=== PATIENT | male | born 1955 | race Caucasian/White ===

== ENCOUNTER 2019-11-28 10:47 | Outpatient (CLI) | payer OTHER, SELFPAY ==
[2019-11-28 11:07] LABS: Hematocrit 43.9 % (42.0-52.0); Hemoglobin 14.9 g/dL (14.0-18.0); Mean Corpuscular HGB Conc 33.9 g/dl (32-36); Mean Corpuscular Hemoglobin 29.5 pg (26-34); Mean Corpuscular Volume 86.9 fl (80-100); Mean Platelet Volume 9.7 fl (7.4-10.4); Platelet Count Result 190 k/mm3 (150-375); Red Blood Count 5.05 M/mm3 (4.6-6.20); Red Cell Distribution Width 13.3 % (11.5-14.5); White Blood Count 6.4 K/mm3 (4.5-10.0)
[2019-11-28 11:22] LABS: Alanine Aminotransferase 38 U/L (4-50); Aspartate Amino Transferase 32 U/L (17-59); Blood Urea Nitrogen 16 mg/dL (9-20); Calcium 9.5 mg/dL (8.4-10.2); Carbon Dioxide 27 mmol/L (22-30); Chloride 105 mmol/L (98-107); Cholesterol 150 mg/dL (0-200); Estimated Glomerular Filt Rate > 60; Glucose 108 mg/dL (75-110); HDL Direct 37 mg/dL; Magnesium 2.3 mg/dL (1.6-2.3); Potassium 4.5 mmol/L (3.4-5.0); Sodium 139 mmol/L (137-145); Triglycerides 175 mg/dL (<150); Uric Acid 7.6 mg/dL (3.5-8.5)
[2019-11-28 11:30] LABS: Hemoglobin A1C 5.6 % (<5.7)
[2019-11-28 11:33] LABS: LDL Cholesterol Direct 98 mg/dL
[2019-11-28 11:49] LABS: Vitamin D 25 Hydroxy 43.3 ng/mL
[2019-11-28 14:15] LABS: Prostate Specific Antigen 0.6 ng/mL (< OR = 4.0)
[2019-11-28 15:10] LABS: Folic Acid 10.5 ng/mL (2.76->20)
[2019-12-02 12:56] LABS: Testosterone Free 46.5 pg/mL (35.0-155.0); Testosterone Total 294 ng/dL (250-1100)
== END 2019-11-28 10:48 | disposition home or self-care (01) ==
PROVIDERS: PCP Internal Medicine; Visit Provider Internal Medicine
DX: G47.33 Obstructive sleep apnea (adult) (pediatric) (principal); I10 Essential (primary) hypertension; G47.9 Sleep disorder, unspecified; K21.9 Gastro-esophageal reflux disease without esophagitis; M54.5 Low back pain; Z99.89 Dependence on other enabling machines and devices
CPT/HCPCS: 36415; 80048; 80061; 82306; 82607; 82746; 83036; 83735; 84153; 84402; 84403; 84450; 84460; 84550; 85027

== ENCOUNTER 2021-04-29 10:49 | Emergency (ER) | payer OTHER, SELFPAY ==
--- NOTE | ~2021-04-29 | XR_ITS ---
EXAMINATION: XR chest 2V DATE: 04/29/2021 11:51 INDICATION: Cough and shortness of breath TECHNIQUE: PA and lateral views of the chest are obtained. COMPARISON: 06/12/2019 FINDINGS: The lungs are free of acute opacities. There is no pleural effusion or pneumothorax. The he art size is normal. Median sternotomy wires and mediastinal surgical clips are seen, likely from prio r coronary artery bypass grafting. There is moderate thoracic spondylosis. Chronic anterior wedging i s noted in multiple thoracic vertebral bodies. IMPRESSION: 1. No acute cardiopulmonary abnormality. Reviewed, dictated and finalized at location A.
[2021-04-29 10:53] VITALS: BP 180/106; PULSE 84; RESP 28; TEMP 36.4; O2SAT 97
--- NOTE | 2021-04-29 10:57 | ECG_ITS ---
Measurements Intervals [place] Rate: 78 P: 71 WV: 129 QRS: 48 QRSD: 90 T: 70 QT: 373 QTc: 425 Interpretive Statements SINUS RHYTHM MINIMAL Q WAVES- INFERIOR LEADS BORDERLINE ST-T WAVE ABNORMALITY- HIGH LATERAL LEADS BASELINE ARTIFACT- I, II, III, AVR, AVL, AVF, V1-V6 BORDERLINE ECG Electronically Signed On 04-29-2021 11:54:12 CDT by Nikolai Echeverria D.O.
[2021-04-29 11:00] VITALS: O2SAT 95
[2021-04-29 11:15] LABS: Basophils Absolute Auto 0.1 K/mm3 (0.0-0.1); Basophils Percent Auto 1.3 % (0.2-1.2); Eosinophils Absolute Auto 0.1 K/mm3 (0-0.3); Hematocrit 46.6 % (42.0-52.0); Immature Granulocyte Absolute 0.02 K/mm3 (0.00-0.031); Immature Granulocyte Percent A 0.5 % (0-0.5); Lymphocytes Percent Auto 17.8 % (18.3-44.2); Mean Corpuscular HGB Conc 34.3 g/dl (32-36); Mean Corpuscular Volume 87.4 fl (80-100); Mean Platelet Volume 9.4 fl (7.4-10.4); Monocytes Absolute Auto 0.5 K/mm3 (0.1-0.6); Monocytes Percent Auto 11.7 % (2.6-8.5); Neutrophils Absolute Auto 2.6 K/mm3 (1.3-6.7); Neutrophils Percent Auto 65.7 % (45.5-73.1); Platelet Count Result 165 k/mm3 (150-375); Red Blood Count 5.33 M/mm3 (4.6-6.20); Red Cell Distribution Width 12.8 % (11.5-14.5); White Blood Count 3.9 K/mm3 (4.5-10.0)
[2021-04-29] MEDS: predniSONE 20 MG TABLET 60 MG PO (11:15)
--- NOTE | 2021-04-29 11:20 | ED.SOB ---
HPI - SOB/Dyspnea General Chief Complaint: Shortness of Breath/Dyspnea Stated Complaint: cough, feverish, sob 3 days Time Seen by Provider: 04/29/21 11:00 Source: patient and RN notes reviewed Mode of arrival: ambulatory Limitations: no limitations History of Present Illness HPI Narrative: This is a 65 year old male with history of CAD s/p CABG, hypertension who presents for evaluation of cough and shortness of breath. He reports he has been sick for 3 days. He has a productive cough with green sputum for 3 days. He has subjective fever. He came to the ER today because he is now having shortness of breath with minimal exertion. He has chest soreness only when he coughs. He has nausea but denies abdominal pain and diarrhea. He reports his grandson was diagnosed with RSV on Monday. Related Data Home Medications Medication Instructions Recorded Confirmed aspirin 81 mg tablet,delayed 81 mg PO DAILY 11/19/19 04/22/20 release atorvastatin 20 mg tablet 20 mg PO DAILY 11/19/19 04/22/20 lisinopril 10 mg tablet 10 mg PO DAILY 11/19/19 04/22/20 rivaroxaban [Xarelto] mg 04/29/21 sotalol 04/29/21 Allergies Allergy/AdvReac Type Severity Reaction Status Date / Time Penicillins Allergy Intermediate rash Verified 04/29/21 10:57 poison mehdi extract Allergy Rash Verified 04/29/21 10:57 pollen extracts Allergy rash Verified 04/29/21 10:57 Review of Systems Review of Systems: All systems reviewed & are unremarkable except as noted in HPI and below PMFSH Past Medical History Medical History CAD (coronary artery disease) FH: coronary artery bypass surgery Situational mixed anxiety and depressive disorder Surgical History Surgical History H/O colonoscopy History of appendectomy History of esophagogastroduodenoscopy (EGD) Family History Family History (Updated 07/27/17 @ 11:18 by DOCTOR UNKNOWN) Father Hypertension Mother Carcinoma of colon Sibling Family history of type 2 diabetes mellitus Social History Social History Smoking status: Former smoker Second hand tobacco smoke exposure: No Smoking end date: 09/25/05 Alcohol intake: current Exam Const: General: alert, diaphoretic and ill appearing Orientation/consciousness: patient oriented x3 Eyes: Pupils: Equal, round and reactive pupils present EOM: EOMs intact bilaterally Resp: Effort & Inspection: tachypneic and no use of accessory muscles Auscultation: wheezes expiratory wheezes and throughout Cardio: Rate: regular rate Rhythm: regular rhythm Heart sounds: no murmurs GI: GI Palp: Yes Soft to palpation, No Tenderness to palpation present (GI) and No Guarding due to palpation present (GI) Auscultation: normal bowel sounds Skin: General skin exam: normal color Rashes: no rashes Neuro: General: patient oriented x3 and moves all extremities Extrem: General: no pedal edema Psych: Mental Status: mental status grossly normal Affect: normal affect Course Reevaluation(s) Reevaluation #1: PAtient states he feels much better. His lungs are clear and his is 97% on room air. I have discussed labs and imaging. Date: 04/29/21 Time: 13:11 Reevaluation #2: I ambulated patient down that malave multiple times. He denies shortness of breath and states he feels good. His oxygen saturation did not go below 93% . He will be discharge for copd exacerbation. Unlikely PE given chronic anticoagulation and wheezing. Date: 04/29/21 Time: 14:07 Vital Signs Vital signs: Vital Signs Temperature 97.6 F 04/29/21 10:53 Pulse Rate 84 04/29/21 10:53 Respiratory Rate 28 H 04/29/21 10:53 Blood Pressure 180/106 H 04/29/21 10:53 Pulse Oximetry 97 04/29/21 10:53 Temperature 97.6 F 04/29/21 10:53 Pulse Rate 73 04/29/21 14:35 Respiratory Rate 18 04/29/21 14:35 Blood Pressure 120/86 04/29/21 14:
[2021-04-29 11:25] LABS: Alveolar/Arterial O2 Gradient 34.8 mmHg; Base Excess ABG 0.7 mEq/l (+/-2.0); Carboxyhemoglobin 0.9 % THb (0-2.0); Fractional Inspired Oxygen 21 %; HCO3 ABG 24.6 mEq/l (22.0-26.0); Methemoglobin ABG 0.2 %THb (0-1.5); Oxygen Content ABG 20.5 %vol (16.0-22.0); Oxygen Saturation ABG 94.6 % (95.0-100.0); Oxyhemoglobin 93.1 % THb (90.0-100.0); PCO2 ABG 37.5 mmHg (35.0-45.0); PO2 FiO2 Ratio Arterial Blood 3.33 %; Reduced Hemoglobin 5.8 %THb (0-5.0); Total Hemoglobin 15.7 g/dL (12.0-18.0); pH ABG 7.435 (7.350-7.450)
[2021-04-29 11:27] LABS: Device ROOM AIR; Modified Allen's Test Pass; Site Drawn RIGHT RADIAL
[2021-04-29 11:28] LABS: INR 1.1; Prothrombin Time 14.2 Seconds (11.1-14.7)
[2021-04-29 11:29] VITALS: PULSE 80; RESP 21
[2021-04-29 11:29] LABS: Alanine Aminotransferase 26 U/L (4-50); Albumin Level 5.1 g/dL (3.5-5.1); Alkaline Phosphatase 69 U/L (38-126); Anion Gap 13 mmol/L (8-16); Aspartate Amino Transferase 37 U/L (17-59); Bilirubin,Total 1.9 mg/dL (0.2-1.3); Blood Urea Nitrogen 16 mg/dL (9-20); Carbon Dioxide 24 mmol/L (22-30); Chloride 100 mmol/L (98-107); Estimated CRCL calculation 80 ml/min; Estimated Glomerular Filt Rate > 60; Glucose 145 mg/dL (65-110); Partial Thromboplastin Time 45.6 SECONDS (22.3-36.8); Potassium 4.3 mmol/L (3.4-5.0); Sodium 137 mmol/L (137-145)
[2021-04-29] MEDS: ALBUTEROL SULFATE NEB 2.5 MG/0.5 ML INH 5 MG INHALATION (11:29)
[2021-04-29] MEDS: IPRATROPIUM BR 0.02% INH SOLN 0.5 MG/2.5 ML VIAL INHALATION (11:29)
[2021-04-29 11:37] VITALS: PULSE 85; RESP 16
[2021-04-29 11:39] LABS: NT Pro B Type Natriuretic Pept 101 pg/mL (5-100)
[2021-04-29 11:41] LABS: Troponin I < 0.012 ng/mL (0.000-0.034)
[2021-04-29 12:13] VITALS: BP 133/81; PULSE 77; RESP 19; O2SAT 94
[2021-04-29 14:35] VITALS: BP 120/86; PULSE 73; RESP 18; O2SAT 95
[2021-05-01 02:01] LABS: SARS-CoV-2 RNA PCR Negative
== END 2021-04-29 14:49 | disposition home or self-care (01) ==
PROVIDERS: Emergency Medicine; Emergency Provider General Practice
DX: J20.9 Acute bronchitis, unspecified (principal); Z20.822 Contact with and (suspected) exposure to COVID-19; I25.10 Atherosclerotic heart disease of native coronary artery without angina pectoris; I10 Essential (primary) hypertension; Z79.82 Long term (current) use of aspirin; Z79.01 Long term (current) use of anticoagulants; Z87.891 Personal history of nicotine dependence; Z95.1 Presence of aortocoronary bypass graft; R94.31 Abnormal electrocardiogram [ECG] [EKG]
CPT/HCPCS: 36415; 36600; 71046; 80048; 80076; 82375; 82805; 83050; 83880; 84484; 85025; 85610; 85730; 87420; 87804; 93005; 94640; 99284; C9803; J7512; U0003; U0005

== ENCOUNTER 2021-07-06 07:33 | Outpatient (CLI) | payer OTHER, SELFPAY ==
[2021-07-06 08:10] LABS: Basophils Absolute Auto 0.1 K/mm3 (0.0-0.1); Basophils Percent Auto 1.1 % (0.2-1.2); Eosinophils Absolute Auto 0.1 K/mm3 (0-0.3); Eosinophils Percent Auto 2.6 % (0-4.4); Hematocrit 39.6 % (42.0-52.0); Hemoglobin 13.6 g/dL (14.0-18.0); Immature Granulocyte Absolute 0.01 K/mm3 (0.00-0.031); Immature Granulocyte Percent A 0.2 % (0-0.5); Lymphocytes Percent Auto 22.7 % (18.3-44.2); Mean Corpuscular HGB Conc 34.3 g/dl (32-36); Mean Corpuscular Hemoglobin 30.6 pg (26-34); Mean Corpuscular Volume 89.2 fl (80-100); Mean Platelet Volume 9.7 fl (7.4-10.4); Monocytes Absolute Auto 0.4 K/mm3 (0.1-0.6); Neutrophils Absolute Auto 3.5 K/mm3 (1.3-6.7); Neutrophils Percent Auto 66.4 % (45.5-73.1); Platelet Count Result 156 k/mm3 (150-375); Red Blood Count 4.44 M/mm3 (4.6-6.20); Red Cell Distribution Width 12.5 % (11.5-14.5); White Blood Count 5.3 K/mm3 (4.5-10.0)
[2021-07-06 08:41] LABS: Alanine Aminotransferase 19 U/L (4-50); Albumin Level 4.4 g/dL (3.5-5.1); Alkaline Phosphatase 49 U/L (38-126); Anion Gap 9 mmol/L (8-16); Aspartate Amino Transferase 22 U/L (17-59); Bilirubin,Total 0.9 mg/dL (0.2-1.3); Blood Urea Nitrogen 16 mg/dL (9-20); Calcium 9.4 mg/dL (8.4-10.2); Carbon Dioxide 23 mmol/L (22-30); Chloride 109 mmol/L (98-107); Cholesterol 143 mg/dL (0-200); Estimated Glomerular Filt Rate > 60; Glucose 114 mg/dL (65-110); HDL Direct 26 mg/dL; Potassium 4.2 mmol/L (3.4-5.0); Sodium 141 mmol/L (137-145); Triglycerides 316 mg/dL (<150)
[2021-07-06 08:52] LABS: LDL Cholesterol Direct 70 mg/dL
[2021-07-06 09:11] LABS: Prostate Specific Antigen 0.6 ng/mL (< OR = 4.0)
[2021-07-06 10:42] LABS: Hemoglobin A1C 5.1 % (<5.7)
== END 2021-07-06 07:34 | disposition home or self-care (01) ==
LOC: ANHLAB 07:35
PROVIDERS: PCP Family Medicine; Visit Provider Family Medicine
DX: D72.819 Decreased white blood cell count, unspecified (principal); I25.10 Atherosclerotic heart disease of native coronary artery without angina pectoris; I10 Essential (primary) hypertension; Z12.5 Encounter for screening for malignant neoplasm of prostate; R73.9 Hyperglycemia, unspecified
CPT/HCPCS: 36415; 80053; 80061; 83036; 84153; 84443; 85025; G0103

== ENCOUNTER 2021-07-08 07:57 | Outpatient (CLI) | payer OTHER, SELFPAY ==
--- NOTE | ~2021-07-08 | CT_ITS ---
EXAMINATION:CT lung screening DATE: 07/08/2021 09:33 INDICATION: Personal history of tobacco dependence. Smoker who quit 15 years ago with 20 pack year hi story. TECHNIQUE: Computed tomography (CT) of the chest was performed without intravenous contrast. Automate d exposure control and iterative reconstruction technique were employed. The dose-length product (DLP ) was 173.20 mGy-cm. COMPARISON: Abdomen CT 10/17/2006 FINDINGS: There is mild scarring at the lung apices. There is moderate emphysema. There is a 3 mm nod ule in left lower lobe. There are a few 1-2 mm nodules in the lungs bilaterally. No pleural effusion. The heart size is normal. There are changes of coronary artery bypass grafting. There are coronary a rtery calcifications. No pericardial effusion. There is mild chronic anterior wedging of multiple mid thoracic vertebral bodies. There is moderate thoracic spondylosis. IMPRESSION: 1. Lung-RADS category 2: Benign appearance or behavior. Continue annual screening with noncontrast lo w-dose chest CT in 12 months. Reviewed, dictated and finalized at location A. IMPRESSION: 1. Lung-RADS category 2: Benign appearance or behavior. Continue annual screeni ng with noncontrast low-dose chest CT in 12 months.
--- NOTE | 2021-07-08 12:43 | P.PCNPFT_ITS ---
PFT Procedure Performed PFT Procedure Performed Spirometry with Pre/Post Bronchodilator Plethysmography (Lung Vol) Diffusing Cap (DLCO) Flow Vol Loop PFT Interpretation Lung volumes were measured with the body plethysmography method. The elevated FRC and RV are indicative of air trapping. Spirometry showed diminished exp iratory flow rates and a diminished FEV1 to FVC ratio 45%, consistent with obstructive airway disease. Following administration of an inhaled bronchodilator, the FEV1 was significantly increased. Lung diffusion capacity is mildly reduced at 74% predicted. The flow volume loop is consistent with obstructive airway disease. Impression: Moderate obstructive airway disease with evidence of air trapping and significant response to bronchodilators on this testing. Mild reduction in lung diffusion capacity.
== END 2021-07-08 07:58 | disposition home or self-care (01) ==
PROVIDERS: PCP Family Medicine; Visit Provider Internal Medicine Critical Care Medicine
DX: Z12.2 Encounter for screening for malignant neoplasm of respiratory organs (principal); R06.02 Shortness of breath; Z87.891 Personal history of nicotine dependence
CPT/HCPCS: 71271; 94060; 94726; 94729

== ENCOUNTER 2021-08-14 14:00 | Emergency (ER) | payer OTHER, SELFPAY ==
[2021-08-14] VITALS (16 sets, daily range): BP systolic 103–148; BP diastolic 67–79; PULSE 74–88; RESP 11–24; TEMP 36.7; O2SAT 93–100
--- NOTE | ~2021-08-14 | XR_ITS ---
EXAMINATION: XR chest 2V EXAM DATE: 08/14/2021 14:53 INDICATION: Shortness of breath.cough, history coronary artery disease. TECHNIQUE: Frontal and lateral projections of the chest obtained and reviewed. Comparison is made to prior examination from 04/29/2021. FINDINGS: Mild chronic appearing hyperinflation. Sternotomy wires are present without findings to sug gest sternal dehiscence. The lungs are clear. There are no pleural effusions. The cardiomediastinal silhouette is within normal limits. There is no pneumothorax suspected. The bones and soft tissues are unremarkable. IMPRESSION: Mild chronic hyperinflation. No acute cardiopulmonary findings. Reviewed, dictated and finalized at location A. FAT PULLER
--- NOTE | 2021-08-14 14:19 | ECG_ITS ---
Measurements Intervals [place] Rate: 78 P: 74 NE: 141 QRS: 64 QRSD: 86 T: 63 QT: 383 QTc: 437 Interpretive Statements SINUS RHYTHM MINIMAL Q WAVES- INF/LAT LEADS BORDERLINE ECG Electronically Signed On 08-14-2021 19:54:04 OIL PIT ATTENDANT by Nikolai Echeverria D.O.
[2021-08-14 15:18] LABS: Basophils Absolute Auto 0.1 K/mm3 (0.0-0.1); Basophils Percent Auto 0.5 % (0.2-1.2); Eosinophils Absolute Auto 0.1 K/mm3 (0-0.3); Eosinophils Percent Auto 1.4 % (0-4.4); Hematocrit 41.4 % (42.0-52.0); Hemoglobin 14.5 g/dL (14.0-18.0); Immature Granulocyte Absolute 0.04 K/mm3 (0.00-0.031); Immature Granulocyte Percent A 0.4 % (0-0.5); Lymphocytes Absolute Auto 0.61 K/mm3 (0.9-3.2); Lymphocytes Percent Auto 6.1 % (18.3-44.2); Mean Corpuscular Hemoglobin 30.1 pg (26-34); Mean Corpuscular Volume 86.1 fl (80-100); Mean Platelet Volume 10.1 fl (7.4-10.4); Monocytes Absolute Auto 0.5 K/mm3 (0.1-0.6); Monocytes Percent Auto 4.9 % (2.6-8.5); Neutrophils Absolute Auto 8.8 K/mm3 (1.3-6.7); Neutrophils Percent Auto 86.7 % (45.5-73.1); Platelet Count Result 174 k/mm3 (150-375); Red Blood Count 4.81 M/mm3 (4.6-6.20); Red Cell Distribution Width 12.4 % (11.5-14.5); White Blood Count 10.1 K/mm3 (4.5-10.0)
[2021-08-14 15:29] LABS: Alanine Aminotransferase 19 U/L (4-50); Albumin Level 4.6 g/dL (3.5-5.1); Alkaline Phosphatase 65 U/L (38-126); Anion Gap 8 mmol/L (8-16); Aspartate Amino Transferase 23 U/L (17-59); Bilirubin,Total 1.7 mg/dL (0.2-1.3); Blood Urea Nitrogen 12 mg/dL (9-20); Calcium 9.8 mg/dL (8.4-10.2); Carbon Dioxide 25 mmol/L (22-30); Chloride 105 mmol/L (98-107); Estimated CRCL calculation 95 ml/min; Estimated Glomerular Filt Rate > 60; Glucose 114 mg/dL (65-110); Sodium 138 mmol/L (137-145)
[2021-08-14] MEDS: IPRATROPIUM BR 0.02% INH SOLN 0.5 MG/2.5 ML VIAL INHALATION ×3 (18:28→20:15)
[2021-08-14] MEDS: ALBUTEROL SULFATE NEB 2.5 MG/0.5 ML INH 5 MG INHALATION ×3 (18:28→20:15)
[2021-08-14] MEDS: methylPREDNISolone SOD SUCC 125 MG VIAL IV PUSH (18:29)
[2021-08-14 18:42] LABS: Lipase 91 U/L (23-300)
--- NOTE | 2021-08-14 18:50 | ED.SOB ---
HPI - SOB/Dyspnea General Chief Complaint: Shortness of Breath/Dyspnea <Danni Beach PA-C - Last Filed: 08/14/21 20:43> Stated Complaint: cough, dyspnea <ALTON Saha Last Filed: 08/14/21 20:43> Time Seen by Provider: 08/14/21 18:06 <ALTON Saha Last Filed: 08/14/21 20:43> Source: patient <ALTON Saha Last Filed: 08/14/21 20:43> Mode of arrival: ambulatory <ALTON Saha Last Filed: 08/14/21 20:43> Limitations: no limitations <ALTON Saha Last Filed: 08/14/21 20:43> History of Present Illness HPI Narrative: This is a 65 year old male that presents to the ER for dyspnea present today. Reports tightness and wheezing. History of COPD. He has been using his nebulizer treatments with some relief. Also reports a mild productive cough today. Denies fever or chest pain. <ALTON Saha Last Filed: 08/14/21 20:43> Related Data Home Medications: Home Medications Medication Instructions Recorded Confirmed aspirin 81 mg tablet,delayed 81 mg PO DAILY 11/19/19 08/31/21 release atorvastatin 20 mg tablet 20 mg PO DAILY 11/19/19 08/31/21 lisinopril 10 mg tablet 10 mg PO DAILY 11/19/19 08/31/21 Xarelto 20 mg PO DAILY 04/29/21 08/31/21 sotalol 80 mg tablet 80 mg PO BID tablet 05/13/21 08/31/21 albuterol sulfate 2.5 mg INHALATION Q4H PRN 08/10/21 08/31/21 <ALTON Saha Last Filed: 08/14/21 20:43> Allergies/Adverse Reactions: Allergies Allergy/AdvReac Type Severity Reaction Status Date / Time poison mehdi extract Allergy Intermediate Rash Verified 08/31/21 15:19 pollen extracts Allergy Intermediate rash Verified 08/31/21 15:19 Penicillins AdvReac Intermediate Diarrhea Verified 08/31/21 15:19 <Danni Beach PA-C - Last Filed: 08/14/21 20:43> Review of Systems Review of Systems: CONSTITUTIONAL: Denies fever ENT: Denies rhinorrhea, congestion, sore throat CARDIOVASCULAR: Denies chest pain or edema. RESPIRATORY: Reports cough and dyspnea. <Danni Beach PA-C - Last Filed: 08/14/21 20:43> All systems reviewed & are unremarkable except as noted in HPI and below <Danni Beach PA-C - Last Filed: 08/14/21 20:43> [facility] Past Medical History Medical History: Medical History (Updated 08/31/21 @ 15:31 by Elena Campbell PA-C) CAD (coronary artery disease) COPD (chronic obstructive pulmonary disease) History of tobacco abuse Hypertension ALONSO on CPAP Paroxysmal atrial fibrillation Situational mixed anxiety and depressive disorder <Danni Beach PA-C - Last Filed: 08/14/21 20:43> Surgical History Surgical History: Surgical History (Updated 08/31/21 @ 15:31 by Elena Campbell PA-C) Coronary atherosclerosis of bypass graft Double 2011 H/O colonoscopy With polypectomy on 08/23/2021 H/O right coronary artery stent placement History of appendectomy History of esophagogastroduodenoscopy (EGD) <Danni Beach PA-C - Last Filed: 08/14/21 20:43> Family History Family History: Family History Father Hypertension Heart disease Cerebrovascular accident Mother Carcinoma of colon Sibling Family history of type 2 diabetes mellitus Hypertension <Danni Beach PA-C - Last Filed: 08/14/21 20:43> Social History Social History: Social History (Updated 08/31/21 @ 15:33 by Elena Campbell PA-C) Social History: Mr. Ca lives at home with his . 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 He is independent in his daily activities. He designates his , Brianna, as his surrogate decision maker and he would like to be a full code. Smoking packs per day: 1 Smoking cigarettes per day: 20.0 Years smoked: 30 Smoking pack-years: 30.00 Smoking status: Former smoker Tobacco type: cigarettes Second hand tobacco smoke exposure: No Smoking end date: 09/25/05 Alcohol intake: current Drinks per
--- NOTE | 2021-08-14 19:19 | PC.NURSE ---
RT entering room for additional neb tx.
[2021-08-14] MEDS: ACETAMINOPHEN 500 MG TABLET 1000 MG PO (19:54)
== END 2021-08-14 21:35 | disposition home or self-care (01) ==
PROVIDERS: Physician Assistant; Emergency Provider Emergency Medicine; PCP Family Medicine
DX: J44.1 Chronic obstructive pulmonary disease with (acute) exacerbation (principal); I25.10 Atherosclerotic heart disease of native coronary artery without angina pectoris; G47.33 Obstructive sleep apnea (adult) (pediatric); I48.0 Paroxysmal atrial fibrillation; Z79.01 Long term (current) use of anticoagulants; Z95.5 Presence of coronary angioplasty implant and graft; Z95.1 Presence of aortocoronary bypass graft; Z87.891 Personal history of nicotine dependence; R94.31 Abnormal electrocardiogram [ECG] [EKG]
CPT/HCPCS: 36415; 71046; 80053; 83690; 85025; 93005; 94640; 96374; 99285; A9270; J2930

== ENCOUNTER 2021-08-23 01:35 | Day surgery (SDC) | payer OTHER, SELFPAY ==
[2021-08-10 11:40] VITALS: BMI 30.9
[2021-08-23 08:18] VITALS: BP 105/62; PULSE 64; RESP 18; TEMP 35.6; O2SAT 99; BMI 29.9
[2021-08-23] MEDS: LACTATED RINGERS 1,000 ML 150 ML IV CONT (08:46)
--- NOTE | 2021-08-23 08:58 | WPDGICN ---
Assessment and Plan Assessment and plan (1) Family history of colon cancer: Code(s): Z80.0 - Family history of malignant neoplasm of digestive organs Status: Acute Assessment and Plan: Patient has a family history of colon cancer in his mother. For this reason surveillance colonoscopy has been advised 5 year intervals. High-fiber diet suggested further recommendations will be given after endoscopy. GI Consult Note Consult date/time: 08/23/21 08:58 HPI: Sajan Ca is a 65 year old male Presents for screening colonoscopy. Patient's current weight appetite bowel movements are normal. He denies abdominal pain. He has had no bleeding. Family history is significant that his mother had colon cancer. Patient presents today for screening colonoscopy. Past medical history is significant for atherosclerotic heart disease. He has a history of a double bypass and heart stents. Currently felt to be stable. Review of Systems Review of Systems: All systems reviewed & are unremarkable except as noted in HPI and below PMFSH Past Medical History Medical History Allergies CAD (coronary artery disease) CAD (coronary artery disease) FH: coronary artery bypass surgery ALONSO on CPAP Paroxysmal atrial fibrillation Situational mixed anxiety and depressive disorder Surgical History Surgical History Coronary atherosclerosis of bypass graft Double 2012 H/O colonoscopy H/O right coronary artery stent placement History of appendectomy History of esophagogastroduodenoscopy (EGD) Family History Family History Father Hypertension Heart disease Cerebrovascular accident Mother Carcinoma of colon Sibling Family history of type 2 diabetes mellitus Hypertension Social History Social History Smoking packs per day: 1 Smoking cigarettes per day: 20.0 Years smoked: 30 Smoking pack-years: 30.00 Smoking status: Former smoker Tobacco type: cigarettes Second hand tobacco smoke exposure: No Smoking end date: 09/25/05 Alcohol intake: current Drinks per week: 6 Alcohol use details: BEERS Substance use: never Substance use type: does not use Living arrangements: with family 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ient): Male Sexual Orientation (if Verbalized by the Patient): Straight or Heterosexual Spiritual care concerns: No Agree to blood products: Yes Meds Home Medications and Allergies Home Medications Medication Instructions Recorded Confirmed Type aspirin 81 mg tablet,delayed 81 mg PO DAILY 11/19/19 08/23/21 History release atorvastatin 20 mg tablet 20 mg PO DAILY 11/19/19 08/23/21 History lisinopril 10 mg tablet 10 mg PO DAILY 11/19/19 08/23/21 History albuterol sulfate 2 puff INHALATION QID PRN #6.7 g 04/29/21 08/23/21 Rx rivaroxaban [Xarelto] 20 mg PO DAILY 04/29/21 08/23/21 History sotalol 80 mg tablet 80 mg PO BID tablet 05/13/21 08/23/21 History albuterol sulfate 2.5 mg INHALATION Q4H PRN 08/10/21 08/23/21 History cefdinir 300 mg PO Q12H 5 Days #10 cap 08/14/21 08/23/21 Rx prednisone 40 mg PO DAILY 4 Days #8 tablet 08/14/21 08/23/21 Rx Allergies Allergy/AdvReac Type Severity Reaction Status Date / Time poison mehdi extract Allergy Intermediate Rash Verified 08/23/21 08:31 pollen extracts Allergy Intermediate rash Verified 08/23/21 08:31 Penicillins AdvReac Intermediate Diarrhea Verified 08/23/21 08:31 Vital Signs Vital Signs - 24 hr 08/23/21 08:18 Temperature 96.1 F L Pulse Rate 64 Respiratory Rate 18 Blood Pressure 105/62 Pulse Oximetry 99 Exam Narrative: Physical exam reveals patient to be alert. Vital signs stable. HEENT exam is un
--- NOTE | 2021-08-23 09:20 | WPDANESEPPF ---
Anes - Initial Pre Proc Eval Procedure: Operation Date: 08/23/21 09:30 Proposed Procedures p Screening Colonoscopy - Johnson Marquez MD Date/Time: 08/23/21 09:20 Surgeon: Johnson Marquez MD Pre Op Diagnosis: family hx of colon ca Patient Data Age: 65 Gender: M Height: 1.78 m Weight: 94.9 kg Last Vital Signs Temp 96.1 F L 08/23/21 08:18 Pulse 64 08/23/21 08:18 Resp 18 08/23/21 08:18 BP 105/62 08/23/21 08:18 Pulse Ox 99 08/23/21 08:18 Allergies Allergy/AdvReac Type Severity Reaction Status Date / Time poison mehdi extract Allergy Intermediate Rash Verified 08/23/21 08:31 pollen extracts Allergy Intermediate rash Verified 08/23/21 08:31 Penicillins AdvReac Intermediate Diarrhea Verified 08/23/21 08:31 Home Medications Medication Instructions Recorded Confirmed Type aspirin 81 mg tablet,delayed 81 mg PO DAILY 11/19/19 08/23/21 History release atorvastatin 20 mg tablet 20 mg PO DAILY 11/19/19 08/23/21 History lisinopril 10 mg tablet 10 mg PO DAILY 11/19/19 08/23/21 History albuterol sulfate 2 puff INHALATION QID PRN #6.7 g 04/29/21 08/23/21 Rx rivaroxaban [Xarelto] 20 mg PO DAILY 04/29/21 08/23/21 History sotalol 80 mg tablet 80 mg PO BID tablet 05/13/21 08/23/21 History albuterol sulfate 2.5 mg INHALATION Q4H PRN 08/10/21 08/23/21 History cefdinir 300 mg PO Q12H 5 Days #10 cap 08/14/21 08/23/21 Rx prednisone 40 mg PO DAILY 4 Days #8 tablet 08/14/21 08/23/21 Rx Patient hx anesthesia problems: none Family hx anesthesia problems: none Results Review: All pre-operative results and documents have been reviewed as part of the pre-operative evaluation. [facility] Past Medical History Medical History Allergies CAD (coronary artery disease) CAD (coronary artery disease) FH: coronary artery bypass surgery ALONSO on CPAP Paroxysmal atrial fibrillation Situational mixed anxiety and depressive disorder Surgical History Surgical History Coronary atherosclerosis of bypass graft Double 2012 H/O colonoscopy H/O right coronary artery stent placement History of appendectomy History of esophagogastroduodenoscopy (EGD) Family History Family History Father Hypertension Heart disease Cerebrovascular accident Mother Carcinoma of colon Sibling Family history of type 2 diabetes mellitus Hypertension Social History Social History Smoking packs per day: 1 Smoking cigarettes per day: 20.0 Years smoked: 30 Smoking pack-years: 30.00 Smoking status: Former smoker Tobacco type: cigarettes Second hand tobacco smoke exposure: No Smoking end date: 09/25/05 Alcohol intake: current Drinks per week: 6 Alcohol use details: BEERS Substance use: never Substance use type: does not use Living arrangements: with family 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ient): Male Sexual Orientation (if Verbalized by the Patient): Straight or Heterosexual Spiritual care concerns: No Agree to blood products: Yes Anes - Eval Final PreProcedure Day of Procedure 08/23/21 09:20 Patient weight: obese Heart: regular rate and rhythm Lungs: clear to auscultation Airway: Mallampati scale class II Neurological: alert and oriented Last oral intake: >/= 8 hours ASA classification: III Emergent: no Anesthetic plan: proceed Anesthesia type and monitoring: general GIVS and standard monitoring Results Review: All pre-operative results and documents have been reviewed as part of the pre-operative evaluation. Informed Consent: The patient's anesthetic plan and its attendant risks and benefits were discussed with the patient/family/POA. Questions were solicited and answers provided to the satisfacti
[2021-08-23 10:19] VITALS: BP 88/50; PULSE 63; RESP 23; O2SAT 93
[2021-08-23 10:29] VITALS: BP 97/71; PULSE 72; RESP 19; O2SAT 96
--- NOTE | 2021-08-23 10:34 | SUR.PHASEII ---
Per Dr. Marquez, restart xarelto in 3 days.
[2021-08-23 10:39] VITALS: BP 113/76; PULSE 62; RESP 20; O2SAT 95
== END 2021-08-23 10:53 | disposition home or self-care (01) ==
PROVIDERS: PCP Family Medicine; Visit Provider Internal Medicine Gastroenterology
PROC: 0DJD8ZZ Inspection of Lower Intestinal Tract, Via Natural or Artificial Opening Endoscopic (ICD-10-PCS; CPT 45378; principal; 2021-08-23 09:30)
DX: Z12.11 Encounter for screening for malignant neoplasm of colon (principal); D12.2 Benign neoplasm of ascending colon; K62.1 Rectal polyp; K57.30 Diverticulosis of large intestine without perforation or abscess without bleeding; Z80.0 Family history of malignant neoplasm of digestive organs; I25.10 Atherosclerotic heart disease of native coronary artery without angina pectoris; G47.33 Obstructive sleep apnea (adult) (pediatric); I48.0 Paroxysmal atrial fibrillation; Z95.1 Presence of aortocoronary bypass graft; Z95.5 Presence of coronary angioplasty implant and graft; Z87.891 Personal history of nicotine dependence; Z79.01 Long term (current) use of anticoagulants; Z79.82 Long term (current) use of aspirin; Z79.51 Long term (current) use of inhaled steroids; E66.9 Obesity, unspecified; Z68.30 Body mass index [BMI] 30.0-30.9, adult
CPT/HCPCS: 45385; 88305; J2704; J7120

== ENCOUNTER 2021-08-24 11:48 | Outpatient (CLI) | payer OTHER, SELFPAY ==
[2021-08-26 21:13] LABS: Alpha-1-Antitrypsin, QN 193 mg/dL (83-199)
== END 2021-08-24 11:49 | disposition home or self-care (01) ==
LOC: ANHLAB 11:51
PROVIDERS: PCP Family Medicine; Visit Provider Internal Medicine Critical Care Medicine
DX: J44.9 Chronic obstructive pulmonary disease, unspecified (principal)
CPT/HCPCS: 36415; 82103; 82104

== ENCOUNTER 2021-08-31 08:10 | Observation (INO) | payer OTHER, SELFPAY ==
[2021-08-31] VITALS (27 sets, daily range): BP systolic 91–136; BP diastolic 50–87; PULSE 62–104; RESP 14–20; TEMP 36–36.7; O2SAT 94–100
[2021-08-31 08:58] LABS: Basophils Absolute Auto 0.1 K/mm3 (0.0-0.1); Basophils Percent Auto 0.7 % (0.2-1.2); Eosinophils Absolute Auto 0.3 K/mm3 (0-0.3); Hematocrit 38.2 % (42.0-52.0); Hemoglobin 12.8 g/dL (14.0-18.0); Immature Granulocyte Absolute 0.05 K/mm3 (0.00-0.031); Immature Granulocyte Percent A 0.4 % (0-0.5); Lymphocytes Absolute Auto 1.52 K/mm3 (0.9-3.2); Lymphocytes Percent Auto 12.4 % (18.3-44.2); Mean Corpuscular HGB Conc 33.5 g/dl (32-36); Mean Corpuscular Hemoglobin 29.7 pg (26-34); Mean Corpuscular Volume 88.6 fl (80-100); Mean Platelet Volume 10.1 fl (7.4-10.4); Monocytes Absolute Auto 0.8 K/mm3 (0.1-0.6); Monocytes Percent Auto 6.8 % (2.6-8.5); Neutrophils Absolute Auto 9.5 K/mm3 (1.3-6.7); Neutrophils Percent Auto 77.7 % (45.5-73.1); Platelet Count Result 251 k/mm3 (150-375); Red Blood Count 4.31 M/mm3 (4.6-6.20); Red Cell Distribution Width 12.7 % (11.5-14.5); White Blood Count 12.3 K/mm3 (4.5-10.0)
[2021-08-31 09:02] LABS: Prothrombin Time 22.4 Seconds (11.1-14.7)
[2021-08-31 09:03] LABS: Partial Thromboplastin Time 46.2 SECONDS (22.3-36.8)
[2021-08-31 09:11] LABS: Alanine Aminotransferase 19 U/L (4-50); Albumin Level 4.4 g/dL (3.5-5.1); Alkaline Phosphatase 49 U/L (38-126); Anion Gap 9 mmol/L (8-16); Aspartate Amino Transferase 23 U/L (17-59); Bilirubin,Total 0.9 mg/dL (0.2-1.3); Blood Urea Nitrogen 16 mg/dL (9-20); Calcium 9.4 mg/dL (8.4-10.2); Carbon Dioxide 23 mmol/L (22-30); Chloride 103 mmol/L (98-107); Estimated CRCL calculation 77 ml/min; Estimated Glomerular Filt Rate > 60; Glucose 116 mg/dL (65-110); Potassium 4.5 mmol/L (3.4-5.0); Sodium 135 mmol/L (137-145)
[2021-08-31] MEDS: LACTATED RINGERS 1,000 ML 999 ML IV CONT (09:32)
--- NOTE | 2021-08-31 10:09 | ED.GIBLEED ---
HPI - GI Bleed General Chief complaint: GI Bleed Stated complaint: bloody diahrrea Time Seen by Provider: 08/31/21 09:08 Source: patient Mode of arrival: ambulatory Limitations: no limitations History of Present Illness HPI Narrative: 65-year-old male Here for 2 episodes of bloody stools this morning Reports the first 1 was blood mixed with stool and the second 1 was just a amount of blood which to him seemed large He does not have abdominal pain, and no tenesmus No dizziness or lightheadedness He had a colonoscopy with polypectomies and biopsies about 8 days ago He subsequently has resumed taking Xarelto for his atrial fibrillation Related Data Home Medications Medication Instructions Recorded Confirmed aspirin 81 mg tablet,delayed 81 mg PO DAILY 11/19/19 08/23/21 release atorvastatin 20 mg tablet 20 mg PO DAILY 11/19/19 08/23/21 lisinopril 10 mg tablet 10 mg PO DAILY 11/19/19 08/23/21 rivaroxaban [Xarelto] 20 mg PO DAILY 04/29/21 08/23/21 sotalol 80 mg tablet 80 mg PO BID tablet 05/13/21 08/23/21 albuterol sulfate 2.5 mg INHALATION Q4H PRN 08/10/21 08/23/21 Allergies Allergy/AdvReac Type Severity Reaction Status Date / Time poison mehdi extract Allergy Intermediate Rash Verified 08/31/21 08:21 pollen extracts Allergy Intermediate rash Verified 08/31/21 08:21 Penicillins AdvReac Intermediate Diarrhea Verified 08/31/21 08:21 Review of Systems Review of Systems: All systems reviewed & are unremarkable except as noted in HPI and below Constitutional: Constitutional: Reports no additional constitutional complaints, Denies chills, Denies fatigue, Denies fever(s), Denies headache(s) and Denies weakness Eyes: Eyes: Reports no additional eye complaints and Denies change in vision ENT: Denies headache(s) and Denies sore throat Cardiovascular: Cardiovascular: Denies chest pain and Denies dyspnea Respiratory: Respiratory: Denies cough and Denies dyspnea Gastrointestinal: Gastrointestinal: Reports as per HPI, Reports no additional gastrointestinal complaints, Denies abdominal pain, Denies diarrhea and Denies vomiting Genitourinary: Genitourinary: Denies dysuria and Denies urinary frequency Musculoskeletal: Musculoskeletal: Denies deformity, Denies arthralgias, Denies joint swelling and Denies numbness Integumentary/Breasts: Skin/Breast: Denies rash and Denies wounds Neurologic: Denies headache(s), Denies focal weakness and Denies numbness Psychiatric: Psychiatric: Reports no additional psychiatric complaints Endocrine: Endocrine: Reports no additional endocrine complaints Hematologic/Lymphatic: Hematologic/Lymphatic: Reports easy bleeding and Reports easy bruising Allergic/Immunologic: Allergic/Immunologic: Reports no additional allergic/immunologic complaints [facility] Past Medical History Medical History Allergies CAD (coronary artery disease) CAD (coronary artery disease) COPD (chronic obstructive pulmonary disease) FH: coronary artery bypass surgery History of tobacco abuse ALONSO on CPAP Paroxysmal atrial fibrillation Situational mixed anxiety and depressive disorder Surgical History Surgical History Coronary atherosclerosis of bypass graft 2011 H/O colonoscopy H/O right coronary artery stent placement History of appendectomy History of esophagogastroduodenoscopy (EGD) Family History Family History Father Hypertension Heart disease Cerebrovascular accident Mother Carcinoma of colon Sibling Family history of type 2 diabetes mellitus Hypertension Social History Social History Smoking packs per day: 1 Smoking cigarettes per day: 20.0 Years smoked: 30 Smoking pack-years: 30.00 Smoking status: Former smoker (quit 15 years ago) Tobacco type: cigarettes Second hand
--- NOTE | 2021-08-31 10:30 | PC.NURSE ---
Ambulatory to restroom. Pt reports he had another bloody stool but flushed before telling nurse.
[2021-08-31] MEDS: LACTATED RINGERS 1,000 ML 125 ML IV CONT ×2 (10:42→21:47)
[2021-08-31] MEDS: FAMOTIDINE 20 MG/2 ML VIAL IV PUSH ×2 (11:07→21:47)
--- NOTE | 2021-08-31 12:02 | PC.NURSE ---
Pt up to commode. Has moderate sized amount of dark bloody stool with clots.
[2021-08-31] MEDS: SODIUM CHLORIDE 0.9% IV 1,000 ML 999 ML IV CONT (12:05)
--- NOTE | 2021-08-31 12:16 | PC.NURSE ---
Dr. Marquez notified of bloody stools. No new orders received.
[2021-08-31 14:16] LABS: Hematocrit 30.7 % (42.0-52.0); Hemoglobin 10.3 g/dL (14.0-18.0)
--- NOTE | 2021-08-31 14:39 | WPDGICN ---
Assessment and Plan Assessment and plan (1) Acute lower GI bleeding: Code(s): K92.2 - Gastrointestinal hemorrhage, unspecified Status: Acute Assessment and Plan: Patient with acute lower GI bleeding. Appears to be from site of recent colon polypectomy. Patient now anticoagulated with Xarelto. Plan is to hold anticoagulation. Monitor hemoglobin. Transfuse as necessary. Attempt to reverse anticoagulation has been initiated by ER service. If bleeding persists despite this a colonoscopy may be required after additional preparation in the morning or sooner if necessary will follow with you. (2) History of colon polyps: Code(s): Z86.010 - Personal history of colonic polyps Status: Acute Assessment and Plan: Patient with several benign colon polyps identified at [facility] to me. Given his prior history of polyps as well as family history of colon cancer now with these polyps would continue sitter follow-up colonoscopy in 3 years. (3) Family history of colon cancer: Code(s): Z80.0 - Family history of malignant neoplasm of digestive organs Status: Acute Assessment and Plan: Because of family history of colon cancer intermittent surveillance colonoscopies have been advised. (4) Paroxysmal atrial fibrillation: Code(s): I48.0 - Paroxysmal atrial fibrillation Status: Acute Assessment and Plan: Patient has atrial fibrillation for which she is on Xarelto anticoagulation given his recent bleeding will hold anticoagulation until further notice. GI Consult Note Consult date/time: 08/31/21 14:39 HPI: Sajan Ca is a 65 year old male I am asked to see because of lower GI bleeding. Patient with an underlying history of atherosclerotic heart disease. Atrial fibrillation on Xarelto. Patient underwent colonoscopy 1 week ago was found to have 2 benign polyps 1 in the sigmoid colon 1 in the ascending colon. These were removed moved in confirmed to be benign but adenomatous. Patient subsequently restarted Xarelto throughout the last week and last evening began to notice bright red blood per rectum. For this reason he presented to the emergency room. He has continued to have intermittent blood in his stools. Patient denies any abdominal pain. He has had no fever. His family history Is significant for colon cancer. Review of Systems Review of Systems: All systems reviewed & are unremarkable except as noted in HPI and below PMFSH Past Medical History Medical History Allergies CAD (coronary artery disease) CAD (coronary artery disease) COPD (chronic obstructive pulmonary disease) FH: coronary artery bypass surgery History of tobacco abuse ALONSO on CPAP Paroxysmal atrial fibrillation Situational mixed anxiety and depressive disorder Surgical History Surgical History Coronary atherosclerosis of bypass graft Double 2011 H/O colonoscopy H/O right coronary artery stent placement History of appendectomy History of esophagogastroduodenoscopy (EGD) Family History Family History Father Hypertension Heart disease Cerebrovascular accident Mother Carcinoma of colon Sibling Family history of type 2 diabetes mellitus Hypertension Social History Social History Smoking packs per day: 1 Smoking cigarettes per day: 20.0 Years smoked: 30 Smoking pack-years: 30.00 Smoking status: Former smoker (quit 15 years ago) Tobacco type: cigarettes Second hand tobacco smoke exposure: No Smoking end date: 09/25/05 Alcohol intake: current Drinks per week: 6 Alcohol use details: SEBASTIEN Substance use: never Substance use type: does not use 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
--- NOTE | 2021-08-31 14:45 | PC.NURSE ---
Pt up to use bathroom, became weak while up and was seated on the floor. Large amount dark red blood with clots noted from rectum.
--- NOTE | 2021-08-31 15:04 | PC.NURSE ---
Spoke with hospitalist ROBBIN Parker regarding rectal bleeding. No new orders received.
--- NOTE | 2021-08-31 15:21 | PM.IMHP ---
H&P: HPI History of Present Illness Date/Time: 08/31/21 15:21 Chief Complaint: GI bleed Narrative: Date of admission: 08/31/2021 Sajan Ca is a 65-year-old male with a history of CAD, COPD, ALONSO, paroxysmal atrial fibrillation on chronic anticoagulation, and recent colonoscopy with polypectomy on 08/23/2021 who presented to the emergency department on 08/31/2021 with complaints of rectal bleeding. He states that after his colonoscopy approximately 1 week ago, he had been feeling fine all week with no issues. He had been off of his Xarelto for 1 week due to his colonoscopy and resume did on 08/27/2021. His last dose of Xarelto was last night, 08/30/2021. Last night he had a normal, formed bowel movement that was brown in color. This morning at approximately 6:30 a.m. he had an episode of diarrhea which she states was mostly red, somewhat maroon in color. Approximately 30 minutes later, he had another episode of bloody diarrhea again. Due to this, he presented to the emergency department. On presentation, his vital signs were stable, he was afebrile, hemoglobin 12.8, hematocrit 38.2, INR 2.0. While in the ED, he had an additional 2 episodes of bloody stool in his blood pressure became soft, around 100/60. He received a bolus of IV fluids and also received Kcentra to reverse his Xarelto. On my encounter, he was feeling weak. He states that since he has been in the ED, he estimates 3 episodes of bloody stool. His is present with him and states that there has been ?lots of blood? in the commode. He also endorses abdominal cramping and tenderness in the lower abdominal region. He felt dizzy and somewhat lightheaded earlier this afternoon, but at my encounter denies further dizziness or lightheadedness. No chest pain or palpitations. He denies epigastric pain, heartburn symptoms. Approximately 30 minutes after my encounter with the patient, I received a call from his RN who stated that he had yet another bloody stool and with that episode, he became lightheaded. He was able to be lowered to the ground with assistance and did have a brief episode of syncope. Review of Systems Review of Systems: All systems reviewed with pertinent positives and negatives as per HPI. Patient denies fevers, chills, nausea, vomiting. Denies shortness of breath. He does endorse cough, stating he has been having coughing spells that wake him up at night. He was just treated for COPD exacerbation and completed a course of steroids antibiotics. He endorses yellow sputum production and intermittent wheezing. Overall states significant improvement from 1 week ago when he had acute exacerbation. [facility] Past Medical History Medical History (Updated 08/31/21 @ 15:31 by Elena Campbell PA-C) CAD (coronary artery disease) COPD (chronic obstructive pulmonary disease) History of tobacco abuse Hypertension ALONSO on CPAP Paroxysmal atrial fibrillation Situational mixed anxiety and depressive disorder Surgical History Surgical History (Updated 08/31/21 @ 15:31 by Elena Campbell PA-C) Coronary atherosclerosis of bypass graft Double 2011 H/O colonoscopy With polypectomy on 08/23/2021 H/O right coronary artery stent placement History of appendectomy History of esophagogastroduodenoscopy (EGD) Family History Family History Father Hypertension Heart disease Cerebrovascular accident Mother Carcinoma of colon Sibling Family history of type 2 diabetes mellitus Hypertension Social History Social History (Updated 08/31/21 @ 15:33 by Elena Campbell PA-C) Social History: Mr. Ca lives at home with his . 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 He is independent in his daily activities. He designates his , Brianna, as his surrogate decision maker and he would like to be a full code. Smoking packs per day: 1 Smoking cigarettes per day: 20.0 Years smoked: 30 Smoking pack
--- NOTE | 2021-08-31 15:33 | PC.NURSE ---
Dr. Marquez notified of continued rectal bleeding.
[2021-08-31] MEDS: SODIUM CHLORIDE 0.9% IV 250 ML 30 ML IV CONT (16:12)
--- NOTE | 2021-08-31 17:27 | ADMGEN ---
This patient, Sajan Ca, was admitted to 3 Medical Room 345-01. Patient/family oriented to hospital policies and general routines including ID bracelet, bed and alarms, visiting hours, pain management, procedures, bathroom and other care routines, personal items, smoking policy, room service/diet, and visiting hours. Information on how to activate the Rapid Response Team has been discussed. Patient/Family are encouraged to report perceived risks to care and to ask questions if they do not understand what they are told or what they should do. Patient in bed with complaints of feeling weak. Patients VS 97.1, 80,20,100% RA, 136/87. Family at bedside. Will continue to monitor patient.
[2021-09-01] VITALS (7 sets, daily range): BP systolic 101–136; BP diastolic 61–84; PULSE 75–95; RESP 18; TEMP 36–36.2; O2SAT 98–99
[2021-09-01] MEDS: LACTATED RINGERS 1,000 ML 125 ML IV CONT (05:52)
[2021-09-01 06:35] LABS: Basophils Absolute Auto 0.1 K/mm3 (0.0-0.1); Basophils Percent Auto 0.7 % (0.2-1.2); Eosinophils Absolute Auto 0.2 K/mm3 (0-0.3); Eosinophils Percent Auto 3.3 % (0-4.4); Hematocrit 27.1 % (42.0-52.0); Hemoglobin 9.4 g/dL (14.0-18.0); Immature Granulocyte Absolute 0.05 K/mm3 (0.00-0.031); Immature Granulocyte Percent A 0.7 % (0-0.5); Lymphocytes Absolute Auto 1.29 K/mm3 (0.9-3.2); Lymphocytes Percent Auto 18.6 % (18.3-44.2); Mean Corpuscular HGB Conc 34.7 g/dl (32-36); Mean Corpuscular Hemoglobin 30.5 pg (26-34); Mean Platelet Volume 9.6 fl (7.4-10.4); Monocytes Absolute Auto 0.5 K/mm3 (0.1-0.6); Monocytes Percent Auto 6.5 % (2.6-8.5); Neutrophils Absolute Auto 4.9 K/mm3 (1.3-6.7); Neutrophils Percent Auto 70.2 % (45.5-73.1); Platelet Count Result 137 k/mm3 (150-375); Red Blood Count 3.08 M/mm3 (4.6-6.20); Red Cell Distribution Width 13.4 % (11.5-14.5)
[2021-09-01 06:53] LABS: Anion Gap 3 mmol/L (8-16); Blood Urea Nitrogen 12 mg/dL (9-20); Calcium 8.5 mg/dL (8.4-10.2); Carbon Dioxide 26 mmol/L (22-30); Chloride 104 mmol/L (98-107); Estimated CRCL calculation 85 ml/min; Estimated Glomerular Filt Rate > 60; Glucose 105 mg/dL (65-110); Potassium 3.9 mmol/L (3.4-5.0); Sodium 133 mmol/L (137-145)
--- NOTE | 2021-09-01 07:26 | WPDGIPROGNO ---
Progress Note: A&P Assessment and Plan (1) Acute blood loss anemia: Code(s): D62 - Acute posthemorrhagic anemia Status: Acute Assessment and Plan: Patient anemic after blood loss. At the present time bleeding appears to have abated. Plan is to advance diet. Continue monitor hemoglobin. Anticipate discharge later today if hemoglobin remains stable. Hemoglobin stable after 2units of transfusion last night. (2) Chronic anticoagulation: Code(s): Z79.01 - longterm (current) use of anticoagulants Status: Acute Assessment and Plan: Patient chronically anticoagulated because of atrial fibrillation. Will need to hold Xarelto a little bit longer in this circumstance. Plan to hold Xarelto for at least a week prior to restarting. (3) Status post colonoscopy with polypectomy: Code(s): Z98.890 - Other specified postprocedural states Status: Acute Assessment and Plan: Patient had several benign polyps removed from the colon 1 week ago. Follow-up colonoscopy suggested in 5 years. This appears to have been the site of recent bleeding. Because bleeding as. No need to proceed with follow-up colonoscopy at this time. Will advance diet. Discharge later today if hemoglobin remains stable. (4) History of colon polyps: Code(s): Z86.010 - Personal history of colonic polyps Status: Acute Subjective Date/time seen: 09/01/21 07:26 Patient alert comfortable this morning. Less anxious. States last bowel movement was more than 8 hours ago. Denies abdominal pain. No longer lightheaded. Tolerated liquid diet last night. Review of Systems Review of Systems: All systems reviewed & are unremarkable except as noted in HPI and below Exam Narrative: Physical exam reveals Vital Signs to be stable. HEENT exam reveals no icterus. Lungs are clear. Heart without murmur. Abdomen is benign. Bowel sounds are present soft nontender with organomegaly. Objective Data Vital Signs Vital Signs: Vital Signs - 24 hr 08/31/21 08:21 08/31/21 11:23 08/31/21 11:30 Temperature 96.8 F L Pulse Rate 68 62 98 Respiratory Rate 17 20 16 Blood Pressure 118/69 123/71 96/62 L Pulse Oximetry 100 99 98 08/31/21 12:30 08/31/21 13:04 08/31/21 14:16 Temperature Pulse Rate 102 H 104 H Respiratory Rate 20 18 Blood Pressure 91/72 L 106/59 L Pulse Oximetry 99 99 97 08/31/21 14:53 08/31/21 14:54 08/31/21 15:00 Temperature Pulse Rate 77 73 74 Respiratory Rate 18 14 15 Blood Pressure 101/65 Pulse Oximetry 97 97 94 08/31/21 15:01 08/31/21 15:15 08/31/21 15:16 Temperature Pulse Rate 73 82 77 Respiratory Rate 16 20 20 Blood Pressure 99/62 L 107/63 Pulse Oximetry 96 95 97 08/31/21 15:30 08/31/21 15:45 08/31/21 16:03 Temperature 97.7 F Pulse Rate 74 71 76 Respiratory Rate 14 18 17 Blood Pressure 93/55 L Pulse Oximetry 97 08/31/21 16:13 08/31/21 16:20 08/31/21 16:45 Temperature 97.9 F 97.2 F L Pulse Rate 74 71 80 Respiratory Rate 16 16 20 Blood Pressure 93/55 L 92/76 L 136/87 Pulse Oximetry 99 97 100 08/31/21 16:46 08/31/21 17:11 08/31/21 17:50 Temperature 97.2 F L 96.9 F L Pulse Rate 80 74 Respiratory Rate 20 18 Blood Pressure 136/87 100/59 L 101/65 Pulse Oximetry 100 100 08/31/21 18:10 08/31/21 18:25 08/31/21 19:25 Temperature 98.1 F 97.9 F 97.7 F Pulse Rate 70 67 74 Respiratory Rate 14 16 18 Blood Pressure 96/50 L 109/68 118/66 Pulse Oximetry 100 100 98 08/31/21 20:00 08/31/21 20:25 08/31/21 22:45 Temperature 97 F L Pulse Rate 78 78 81 Respiratory Rate 18 18 16 Blood Pressure 110/74 Pulse Oximetry 98 98 95 09/01/21 00:27 09/01/21 05:17 09/01/21 06:23 Temperature 96.8 F L 97.2 F L Pulse Rate 84 80 80 Respiratory Rate 18 18 18 Blood Pressure 123/73 136/84 Pulse Oximetry 98 98 Intake/Output Intake/Output: Intake & Output 08/29/21 08/30/21 08/31/21 09/01/21 23:59 23:59 23:59 23:59 Intake Total
[2021-09-01] MEDS: FAMOTIDINE 20 MG/2 ML VIAL IV PUSH (10:06)
[2021-09-01] MEDS: ATORVASTATIN 20 MG TABLET PO (10:06)
[2021-09-01] MEDS: SOTALOL HCL 80 MG TABLET PO (10:06)
[2021-09-01 11:20] LABS: Hematocrit 26.4 % (42.0-52.0); Hemoglobin 9.3 g/dL (14.0-18.0)
--- NOTE | 2021-09-01 15:05 | PM.DS ---
DS: Admitting Diagnosis Discharge Date 09/01/2021 Admitting Diagnosis GI bleed DS: Discharge Diagnosis Discharge Diagnosis (1) Acute lower GI bleeding: Code(s): K92.2 - Gastrointestinal hemorrhage, unspecified Status: Acute Assessment and Plan: Patient presented after having 2 episodes of bright red blood per rectum. This was likely from his recent polypectomy site. He was seen in consultation by Gastroenterology. During his admission he had approximately 4 more episodes of bloody stool. He was transfused total of 2 units PRBC. Hemoglobin and hematocrit remained stable. His diet was advanced and he was able to tolerate a regular diet. He had no further episodes of bleeding. His Xarelto was placed on hold and he will continue to hold Xarelto and aspirin for 1 week. Repeat H&H in 1 week and follow-up with Gastroenterology as an outpatient. (2) Acute blood loss anemia: Code(s): D62 - Acute posthemorrhagic anemia Status: Acute Assessment and Plan: Secondary to GI bleeding as above. Hemoglobin 2 weeks ago was 14.5. Hemoglobin on presentation was 12.8 and has declined to 10.3. The patient was symptomatic with this decline and therefore was transfused 2 units pRBC. His hemoglobin and hematocrit stabilized and had no further episodes of bleeding. He will repeat H&H in 1 week to ensure improvement. (3) Status post colonoscopy with polypectomy: Code(s): Z98.890 - Other specified postprocedural states Status: Acute Assessment and Plan: Underwent colonoscopy on 08/23/2021 given family history of colon cancer with polypectomy. Pathology results are benign. Suspected that his subsequent GI bleeding was from the polypectomy site. (4) Chronic anticoagulation: Code(s): Z79.01 - longterm (current) use of anticoagulants Status: Acute Assessment and Plan: Patient maintained on Xarelto for atrial fibrillation. Xarelto resumed 08/27/2021 following colonoscopy. Last dose was 08/30/2021 prior to presentation. Xarelto was held in light of acute GI bleeding. Patient did receive Kcentra for Xarelto reversal. He will continue to hold Xarelto for 1 week (5) COPD (chronic obstructive pulmonary disease): Code(s): J44.9 - Chronic obstructive pulmonary disease, unspecified Status: Acute Assessment and Plan: Recently treated for COPD exacerbation and followed up with his latex dipper on 08/24/2021. Completed a course of prednisone and cefdinir. Overall with improvement, but still with lingering cough and faint wheezing. Bronchodilators administered during hospitalization. Given his mild persistent symptoms, I recommended that he continue with nebs at home q.6 hours for 24-48 hours and call his latex dipper if he does not have any improvement. (6) ALONSO on CPAP: Code(s): G47.33 - Obstructive sleep apnea (adult) (pediatric); Z99.89 - Dependence on other enabling machines and devices Status: Acute Assessment and Plan: Continue CPAP at night (7) Essential (primary) hypertension: Code(s): I10 - Essential (primary) hypertension Status: Acute Assessment and Plan: Patient with history of hypertension. BP was soft at presentation secondary to GI bleed. Home lisinopril was hold. BP improved following IV fluids and blood transfusion. Orthostatics negative. Resume lisinopril on discharge. (8) Syncope: Code(s): R55 - Syncope and collapse Status: Acute Assessment and Plan: Brief loss of consciousness following diarrhea episode. [place] to be secondary to acute blood loss. Was able to be lowered to the ground. Did not hit head or have any injuries. Fall precautions implemented. He had improvement following volume resuscitation and was asymptomatic on day of discharge. DS: Summary Hospital Course Hospital Course: Date of admission: 08/31/2021 Date of discharge: 09/01/2021 Will
== END 2021-09-01 15:56 | disposition home or self-care (01) ==
LOC: ANHED 10:13 → ANH3MEDSUR 12:17 → ANH3MED 15:45
PROVIDERS: Internal Medicine Gastroenterology; Admitting Provider Internal Medicine; Emergency Provider Emergency Medicine; PCP Family Medicine; Visit Provider Physician Assistant
DX: K92.2 Gastrointestinal hemorrhage, unspecified (principal); D62 Acute posthemorrhagic anemia; R55 Syncope and collapse; G47.33 Obstructive sleep apnea (adult) (pediatric); I25.10 Atherosclerotic heart disease of native coronary artery without angina pectoris; I48.0 Paroxysmal atrial fibrillation; J44.9 Chronic obstructive pulmonary disease, unspecified; Z87.891 Personal history of nicotine dependence; Z79.01 Long term (current) use of anticoagulants; Z86.010 Personal history of colon polyps
CPT/HCPCS: 36415; 36430; 80048; 80053; 85014; 85018; 85025; 85610; 85730; 86850; 86900; 86901; 86920; 94640; 96361; 96365; 96374; 96375; 96376; 99285; A9270; G0378; J7030; J7050; J7120; J7168; P9016

== ENCOUNTER 2021-09-06 07:34 | Outpatient (CLI) | payer OTHER, SELFPAY ==
[2021-09-06 08:34] LABS: Hematocrit 30.1 % (42.0-52.0); Hemoglobin 9.9 g/dL (14.0-18.0)
== END 2021-09-06 07:35 | disposition home or self-care (01) ==
PROVIDERS: PCP Family Medicine; Visit Provider Physician Assistant
DX: D62 Acute posthemorrhagic anemia (principal)
CPT/HCPCS: 36415; 85014; 85018

== ENCOUNTER 2021-09-29 14:04 | Outpatient (CLI) | payer OTHER, SELFPAY ==
[2021-09-29 14:27] LABS: Basophils Absolute Auto 0.1 K/mm3 (0.0-0.1); Basophils Percent Auto 0.9 % (0.2-1.2); Eosinophils Absolute Auto 0.2 K/mm3 (0-0.3); Eosinophils Percent Auto 2.9 % (0-4.4); Hematocrit 38.3 % (42.0-52.0); Hemoglobin 12.7 g/dL (14.0-18.0); Immature Granulocyte Absolute 0.02 K/mm3 (0.00-0.031); Immature Granulocyte Percent A 0.4 % (0-0.5); Lymphocytes Absolute Auto 1.24 K/mm3 (0.9-3.2); Lymphocytes Percent Auto 22.5 % (18.3-44.2); Mean Corpuscular HGB Conc 33.2 g/dl (32-36); Mean Corpuscular Hemoglobin 29.8 pg (26-34); Mean Corpuscular Volume 89.9 fl (80-100); Mean Platelet Volume 9.3 fl (7.4-10.4); Monocytes Absolute Auto 0.4 K/mm3 (0.1-0.6); Monocytes Percent Auto 7.4 % (2.6-8.5); Neutrophils Absolute Auto 3.6 K/mm3 (1.3-6.7); Neutrophils Percent Auto 65.9 % (45.5-73.1); Platelet Count Result 173 k/mm3 (150-375); Red Blood Count 4.26 M/mm3 (4.6-6.20); Red Cell Distribution Width 13.5 % (11.5-14.5); White Blood Count 5.5 K/mm3 (4.5-10.0)
[2021-09-29 15:39] LABS: Iron 59 ug/dL (49-181)
[2021-09-29 15:48] LABS: Percent Iron Saturation 17 % (20-50)
== END 2021-09-29 14:05 | disposition home or self-care (01) ==
PROVIDERS: PCP Family Medicine; Referring Provider Internal Medicine Gastroenterology; Visit Provider Family Medicine
DX: D62 Acute posthemorrhagic anemia (principal)
CPT/HCPCS: 36415; 83540; 83550; 85025

== ENCOUNTER 2022-04-03 22:33 | Observation (INO) | payer OTHER, SELFPAY ==
[2022-04-03] VITALS (8 sets, daily range): BP systolic 114–164; BP diastolic 64–108; PULSE 113–136; RESP 18–35; TEMP 36.4; O2SAT 88–99
--- NOTE | ~2022-04-03 | XR_ITS ---
EXAMINATION: XR chest 1V portable DATE: 04/03/2022 23:55 INDICATION: Dyspnea. TECHNIQUE: A single frontal view of the chest was obtained. COMPARISON: Chest 2 views 08/14/2021, chest CT 07/14/2021 FINDINGS: There is mild scarring at the lung apices. There are lucencies in the lungs, consistent wit h emphysema. No pleural effusion or pneumothorax. The heart size is normal. Median sternotomy wires a nd mediastinal surgical clips are seen, likely from prior coronary artery bypass grafting. IMPRESSION: 1. Stable mild scarring at the lung apices. 2. Emphysema. Reviewed, dictated and finalized at location A.
--- NOTE | 2022-04-03 22:41 | ECG_ITS ---
Measurements Intervals Mobile Rate: 127 P: 66 GA: 144 QRS: 48 QRSD: 90 T: 62 QT: 339 QTc: 493 Interpretive Statements SINUS TACHYCARDIA SUPRAVENTRICULAR COUPLET AND INTERMITTENT SUPRAVENTRICULAR TACHYCARDIA BORDERLINE ST-T WAVE ABNORMALITY- ANTEROLAT/HIGH LAT LEADS ABNORMAL ECG Electronically Signed On 04-04-2022 6:07:39 CDT by Nikolai Echeverria D.O.
[2022-04-03] MEDS: SODIUM CHLORIDE 0.9% IV 500 ML 999 ML IV CONT (22:46)
[2022-04-03 22:59] LABS: Alveolar/Arterial O2 Gradient 97.8 mmHg; Base Excess ABG -3.9 mEq/l (+/-2.0); Fractional Inspired Oxygen 28 %; HCO3 ABG 19.8 mEq/l (22.0-26.0); Oxygen Content ABG 19.2 %vol (16.0-22.0); Oxygen Saturation ABG 92.7 % (95.0-100.0); Oxyhemoglobin 91.2 % THb (90.0-100.0); PCO2 ABG 32.4 mmHg (35.0-45.0); PO2 ABG 63.6 mmHg (80.0-100.0); PO2 FiO2 Ratio Arterial Blood 2.27 %; pH ABG 7.403 (7.350-7.450)
[2022-04-03 23:00] LABS: Device NASAL CANNULA; Modified Allen's Test Pass; Site Drawn RIGHT RADIAL
[2022-04-03] MEDS: ALBUTEROL SULFATE NEB 2.5 MG/3 ML INH 15 MG INHALATION (23:01)
[2022-04-03] MEDS: IPRATROPIUM BR 0.02% INH SOLN 0.5 MG/2.5 ML VIAL 1.5 MG INHALATION (23:02)
--- NOTE | 2022-04-03 23:10 | ED.SOB ---
HPI - SOB/Dyspnea General Chief Complaint: Shortness of Breath/Dyspnea Stated Complaint: sob Time Seen by Provider: 04/03/22 22:35 Source: patient History of Present Illness HPI Narrative: Patient presents with shortness of breath. Patient reports increasing shortness of breath and cough for the past few days the symptoms were worse today so he came to the ER for further evaluation. Patient also reports a history of paroxysmal A. fib and feels like his heart rate is going fast. Patient also reports left shoulder pain that started today. Patient denies any fever denies any chest pain abdominal pain denies any nausea vomiting Related Data Home Medications Medication Instructions Recorded Confirmed aspirin 81 mg tablet,delayed 81 mg PO DAILY 11/19/19 04/04/22 release (Adult Aspirin Regimen) atorvastatin 20 mg tablet 20 mg PO DAILY 11/19/19 04/04/22 lisinopril 10 mg tablet 10 mg PO DAILY 11/19/19 04/04/22 rivaroxaban 20 mg tablet (Xarelto) 20 mg PO DAILY 04/29/21 04/04/22 sotalol 80 mg tablet 80 mg PO BID 05/13/21 04/04/22 Allergies Allergy/AdvReac Type Severity Reaction Status Date / Time poison mehdi extract Allergy Intermediate Rash Verified 09/29/21 13:32 pollen extracts Allergy Intermediate rash Verified 09/29/21 13:32 Penicillins AdvReac Intermediate Diarrhea Verified 09/29/21 13:32 Review of Systems Review of Systems: CONSTITUTIONAL: Denies fever, chills, or sweats. EYES: Denies visual changes, redness, or discharge. ENT: Denies rhinorrhea, congestion, sore throat, or otalgia. CARDIOVASCULAR: Denies chest pain, or edema. RESPIRATORY: Reports shortness of breath and cough GASTROINTESTINAL: Denies abdominal pain, nausea, vomiting, or diarrhea. GENITOURINARY: Denies dysuria or hematuria. SKIN: Denies rash or itching. MUSCULOSKELETAL: Denies back pain, joint pain, or myalgia. NEUROLOGIC: Denies headache, numbness, dizziness, or weakness. PSYCHIATRIC: Denies anxiety or depression. All systems reviewed & are unremarkable except as noted in HPI and below PMFSH Past Medical History Medical History CAD (coronary artery disease) COPD (chronic obstructive pulmonary disease) History of tobacco abuse Hypertension ALONSO on CPAP Paroxysmal atrial fibrillation Situational mixed anxiety and depressive disorder Surgical History Surgical History Coronary atherosclerosis of bypass graft Double 2011 H/O colonoscopy With polypectomy on 08/23/2021 H/O right coronary artery stent placement History of appendectomy History of esophagogastroduodenoscopy (EGD) Family History Family History Father Heart disease Hypertension Cerebrovascular accident Mother Carcinoma of colon Sibling Family history of type 2 diabetes mellitus Hypertension Heart disease Pacemaker Social History Social History Social History: Mr. Ca lives at home with his . 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 He is independent in his daily activities. He designates his , Brianna, as his surrogate decision maker and he would like to be a full code. Smoking packs per day: 1 Smoking cigarettes per day: 20.0 Years smoked: 30 Smoking pack-years: 30.00 Smoking status: Former smoker Tobacco type: cigarettes Second hand tobacco smoke exposure: No Smoking end date: 09/25/05 Alcohol intake: current Drinks per week: 6 Alcohol use details: Patient drinks one 6-pack of beer per week. Substance use: never Substance use type: does not use Gender identity (if verbalized by the patient): Male Sexual Orientation (if Verbalized by the Patient): Straight or Heterosexual Spiritual care concerns: No Agree to blood products: Yes Exam Narrative: GENERAL: Well-appearing, well-nourished, and in no acute distress. HEAD:
[2022-04-03 23:11] LABS: Basophils Percent Auto 0.3 % (0.2-1.2); Eosinophils Absolute Auto 0.2 K/mm3 (0-0.3); Eosinophils Percent Auto 2.1 % (0-4.4); Hematocrit 44.3 % (42.0-52.0); Hemoglobin 15.2 g/dL (14.0-18.0); Immature Granulocyte Absolute 0.02 K/mm3 (0.00-0.031); Immature Granulocyte Percent A 0.3 % (0-0.5); Lymphocytes Absolute Auto 0.95 K/mm3 (0.9-3.2); Lymphocytes Percent Auto 12.4 % (18.3-44.2); Mean Corpuscular HGB Conc 34.3 g/dl (32-36); Mean Corpuscular Hemoglobin 30.4 pg (26-34); Mean Corpuscular Volume 88.6 fl (80-100); Mean Platelet Volume 9.9 fl (7.4-10.4); Monocytes Absolute Auto 0.4 K/mm3 (0.1-0.6); Monocytes Percent Auto 5.3 % (2.6-8.5); Neutrophils Absolute Auto 6.1 K/mm3 (1.3-6.7); Neutrophils Percent Auto 79.6 % (45.5-73.1); Platelet Count Result 182 k/mm3 (150-375); Red Cell Distribution Width 13.1 % (11.5-14.5); White Blood Count 7.7 K/mm3 (4.5-10.0)
[2022-04-03] MEDS: methylPREDNISolone SOD SUCC 125 MG VIAL IV PUSH (23:16)
[2022-04-03] MEDS: dilTIAZem HCl INJ 25 MG/5 ML VIAL 10 MG IV PUSH (23:18)
[2022-04-03 23:27] LABS: Alanine Aminotransferase 19 U/L (6-50); Albumin Level 4.9 g/dL (3.5-5.1); Alkaline Phosphatase 74 U/L (38-126); Anion Gap 8 mmol/L (8-16); Aspartate Amino Transferase 27 U/L (17-59); Blood Urea Nitrogen 17 mg/dL (9-20); Calcium 9.2 mg/dL (8.4-10.2); Carbon Dioxide 23 mmol/L (22-30); Chloride 104 mmol/L (98-107); Estimated CRCL calculation 77 ml/min; Estimated Glomerular Filt Rate > 60; Glucose 109 mg/dL (65-110); Potassium 4.1 mmol/L (3.4-5.0); Sodium 135 mmol/L (137-145)
[2022-04-03] MEDS: dilTIAZem 100 MG/100 ML 100 MG/100 ML BAG IV CONT (23:31)
[2022-04-03] MEDS: ONDANSETRON INJ 4 MG/2 ML VIAL IV PUSH (23:32)
[2022-04-03 23:39] LABS: Troponin I < 0.012 ng/mL (0.000-0.034)
[2022-04-03 23:52] LABS: SARS-CoV-2 RNA PCR Negative
[2022-04-04] VITALS (34 sets, daily range): BP systolic 103–140; BP diastolic 48–108; PULSE 53–140; RESP 16–25; TEMP 36.2–36.8; O2SAT 92–97; BMI 30.7
[2022-04-04 02:03] LABS: Troponin I < 0.012 ng/mL (0.000-0.034)
[2022-04-04] MEDS: IPRATROPIUM BR 0.02% INH SOLN 0.5 MG/2.5 ML VIAL INHALATION ×4 (02:55→20:17)
[2022-04-04] MEDS: ALBUTEROL SULFATE NEB 2.5 MG/3 ML INH 5 MG INHALATION ×4 (02:55→20:17)
--- NOTE | 2022-04-04 03:37 | PM.IMHP ---
H&P: HPI History of Present Illness Date/Time: 04/04/22 03:37 Chief Complaint: Shortness of breath Narrative: 66-year-old male with past medical history significant for COPD, CAD, hypertension, ALONSO, PAF is presenting with increasing shortness of breath with cough. Patient states that for the last 2-3 weeks he has been getting progressively more short of breath and having chest tightness intermittently. He did call his minister helper who recommended he increase his sotalol from 80 mg twice daily to 120 mg twice daily. He took the 120 mg dose last evening. The reason he finally came in is because he had a coughing fit that was quite severe and his chest pain got much worse. In the ER, use found to be in AFib with RVR with a heart rate of 130-140. He did have some hypoxic episodes. He was unable to tolerate BiPAP. He was given a oxygen via nasal cannula. He was given DuoNebs and Solu-Medrol. He was then started on a Cardizem drip. Chest x-ray was concerning for possible early pneumonia and so patient was given Rocephin and azithromycin. Patient denies any fevers or chills. No nausea vomiting or diarrhea. No chest pain or headaches. Review of Systems Review of Systems: 12 point review of systems was assessed and was negative except as noted in the HPI [facility] Past Medical History Medical History CAD (coronary artery disease) COPD (chronic obstructive pulmonary disease) History of tobacco abuse Hypertension ALONSO on CPAP Paroxysmal atrial fibrillation Situational mixed anxiety and depressive disorder Surgical History Surgical History Coronary atherosclerosis of bypass graft Double 2011 H/O colonoscopy With polypectomy on 08/23/2021 H/O right coronary artery stent placement History of appendectomy History of esophagogastroduodenoscopy (EGD) Family History Family History Father Heart disease Hypertension Cerebrovascular accident Mother Carcinoma of colon Sibling Family history of type 2 diabetes mellitus Hypertension Heart disease Pacemaker Social History Social History Social History: Mr. Ca lives at home with his . 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 He is independent in his daily activities. He designates his , Brianna, as his surrogate decision maker and he would like to be a full code. Smoking packs per day: 1 Smoking cigarettes per day: 20.0 Years smoked: 30 Smoking pack-years: 30.00 Smoking status: Former smoker Second hand tobacco smoke exposure: No Alcohol intake: current Drinks per week: 6 Alcohol use details: Patient drinks one 6-pack of beer per week. Substance use: never Substance use type: does not use Gender identity (if verbalized by the patient): Male Sexual Orientation (if Verbalized by the Patient): Straight or Heterosexual Spiritual care concerns: No Agree to blood products: Yes Meds Home Medications and Allergies Home Medications Medication Instructions Recorded Confirmed Type aspirin 81 mg tablet,delayed 81 mg PO DAILY 11/19/19 04/04/22 History release (Adult Aspirin Regimen) atorvastatin 20 mg tablet 20 mg PO DAILY 11/19/19 04/04/22 History lisinopril 10 mg tablet 10 mg PO DAILY 11/19/19 04/04/22 History rivaroxaban 20 mg tablet (Xarelto) 20 mg PO DAILY 04/29/21 04/04/22 History sotalol 80 mg tablet 80 mg PO BID 05/13/21 04/04/22 History budesonide 160 mcg-glycopyr 9 2 inh inhalation BID 1 month #10.7 08/24/21 04/04/22 Rx mcg-formot 4.8 mcg/actuation HFA grams inhaler (Breztri Aerosphere) albuterol sulfate 90 mcg/actuation 2 puff inhalation Q4-6H PRN 08/25/21 04/04/22 Rx aerosol inhaler shortness of breath or wheezing 1 month #6.7 grams albuterol sulfate 2.5 mg/3 mL 2.5 mg (3 mL) inhalation Q4H PRN 09/07/21
--- NOTE | 2022-04-04 03:48 | ADMGEN ---
This patient, Sajan Ca, was admitted to IMU Room 203-01 on 04/04/2022 at 0335. Patient/family oriented to hospital policies and general routines including ID bracelet, bed and alarms, visiting hours, pain management, procedures, bathroom and other care routines, personal items, smoking policy, room service/diet, and visiting hours. Information on how to activate the Rapid Response Team has been discussed. Patient/Family are encouraged to report perceived risks to care and to ask questions if they do not understand what they are told or what they should do.
[2022-04-04] MEDS: ACETAMINOPHEN 325 MG TABLET 650 MG PO (05:05)
[2022-04-04 05:44] LABS: Troponin I < 0.012 ng/mL (0.000-0.034)
[2022-04-04] MEDS: FLUTICASONE/UMECLIDIN/VILANTER 100-62.5-25 MCG ELLIPTA 1 PUFF INHALATION (08:25)
[2022-04-04] MEDS: ASPIRIN 81 MG ENTERIC TABLET PO (08:32)
[2022-04-04] MEDS: predniSONE 20 MG TABLET 60 MG PO (08:32)
[2022-04-04] MEDS: PANTOPRAZOLE 40 MG TABLET PO (08:33)
[2022-04-04] MEDS: dilTIAZem 100 MG/100 ML 100 MG/100 ML BAG 10 MG IV CONT (08:40)
[2022-04-04] MEDS: SOTALOL HCL 40 MG, SOTALOL HCL 80 MG 120 MG PO ×2 (09:14→20:12)
--- NOTE | 2022-04-04 09:30 | ECG_ITS ---
Measurements Intervals [place] Rate: 60 P: 53 MA: 153 QRS: 41 QRSD: 89 T: 63 QT: 442 QTc: 445 Interpretive Statements SINUS RHYTHM EARLY PRECORDIAL R/S TRANSITION BORDERLINE ECG Electronically Signed On 04-04-2022 11:06:42 CDT by Nikolai Echeverria D.O.
--- NOTE | 2022-04-04 10:25 | PM.CNCAR ---
Assessment and Plan Assessment and plan (1) Paroxysmal atrial fibrillation: Code(s): I48.0 - Paroxysmal atrial fibrillation Status: Acute (2) Coronary atherosclerosis of bypass graft: Code(s): I25.810 - Atherosclerosis of coronary artery bypass graft(s) without angina pectoris Status: Acute (3) H/O right coronary artery stent placement: Code(s): Z95.5 - Presence of coronary angioplasty implant and graft Status: Acute Plan This is a 66-year-old man with paroxysmal atrial fibrillation presenting with increasing palpitations starting the middle of last week. His sotalol dosage was advanced he continued to be symptomatic. Yesterday evening's ECG is interesting showing sinus beats followed by 6 or 7 rapid SVT beats. This ECG is not really consistent with atrial fibrillation. Later in the day he after admission was clearly in atrial fibrillation by telemetry strips. He is now in sinus rhythm and is asymptomatic this morning. His rhythm management is complicated by the fact that he does have coronary artery disease underlying this as well as COPD. For these reasons I he is not a very good candidate for flecainide or amiodarone. I would like therefore to continue the sotalol and add some oral diltiazem to the regimen and follow him along at least 1 more day in the hospital. Told the patient that if he continues to have recurrences of symptomatic breakthrough episodes of atrial fibrillation we would likely refer him to an cupola melter helper after this. He is not having any symptoms to merit an ischemia workup at this time. Will follow with you through this hospitalization James Huddleston MD [facility] History of Present Illness History of Present Illness Consult date/time: 04/04/22 10:25 Consult reason: atrial fibrillation Reason For Visit: Hypoxia Narrative: This is a 66-year-old man I am seeing at the request of the hospitalist for assistance with the evaluation and management of atrial arrhythmias. The patient is known to me with a history of coronary artery disease as well as a history of paroxysmal atrial fibrillation. He was doing well until middle of last week when he noted the increase in episodes of tachycardia/palpitations and did contact our office for advice. He had been taking sotalol 80 mg q.12 hours and was advised to advance the dose to 120 mg and have short-term follow-up in the office. He increase the dosage on of last week. On Monday and Monday he felt relatively well and did not have any palpitations yesterday his palpitations continue to occur off and on throughout the day so he finally came into the emergency room for evaluation last night. He did take both doses of the sotalol yesterday a at home before coming into the hospital last night. He was felt to be in AFib with RVR placed on IV diltiazem and admitted to the IMU. This morning he is in sinus rhythm and is essentially asymptomatic. The patient's admitting 12 lead EKG was interesting showing sinus beats followed by 5/6 her ectopic atrial beats most more consistent with SVT episodes then atrial fib. His telemetry however on the floor did look like sandoval atrial fibrillation. At this time he is back in sinus rhythm and is asymptomatic. He has not been having any chest pain pressure or heaviness. He does have also a history of coronary artery disease dating back to August of 2012. At that time he was found to have significant disease at the LAD/diagonal bifurcation and was referred for surgical revascularization. This took place at [facility], [place] and he did well after that. He however presented again in 2019 with ischemic symptoms was brought back to the catheter finisher and inspector and found to have patency of his DAVID graft to the LAD but a new high-grade disease in both the right coronary and circumflex arteries. These were both addressed using Orsiro drug-eluting stents and he has not had any further ischemic chest pain since
--- NOTE | 2022-04-04 15:19 | PCNSR ---
On 04/04/22, the student, Chris Reynoso, provided care and completed [facility] documentation on this patient. I have reviewed the student's documentation and agree with the findings.
[2022-04-04] MEDS: RIVAROXABAN 20 MG TABLET PO (17:41)
--- NOTE | 2022-04-04 18:19 | PM.IMPN ---
Progress Note: A&P Assessment and Plan (1) COPD exacerbation: Code(s): J44.1 - Chronic obstructive pulmonary disease with (acute) exacerbation Status: Acute Assessment and Plan: Continue DuoNebs, prednisone (2) Hypoxia: Code(s): R09.02 - Hypoxemia Status: Acute Assessment and Plan: Oxygen per nasal cannula as needed, wean as tolerated (3) Essential (primary) hypertension: Code(s): I10 - Essential (primary) hypertension Status: Acute Assessment and Plan: Stable, monitor (4) CAD (coronary artery disease): Code(s): I25.10 - Atherosclerotic heart disease of [place] coronary artery without angina pectoris Status: Acute Assessment and Plan: Consult cardiology (5) ALONSO on CPAP: Code(s): G47.33 - Obstructive sleep apnea (adult) (pediatric); Z99.89 - Dependence on other enabling machines and devices Status: Acute Assessment and Plan: CPAP at night (6) Paroxysmal atrial fibrillation: Code(s): I48.0 - Paroxysmal atrial fibrillation Status: Acute Assessment and Plan: Occasional AFib with RVR, Cardiology consulted, continue Cardizem drip (7) Community acquired pneumonia: Code(s): J18.9 - Pneumonia, unspecified organism Status: Acute Assessment and Plan: 1 dose of Rocephin and azithromycin given in the ER, no blood cultures taken, will check blood cultures now and switch antibiotics to Levaquin 750 mg to complete a 5 day course (8) Chest pain: Code(s): R07.9 - Chest pain, unspecified Status: Acute Assessment and Plan: Trend troponins, monitor telemetry, appreciate Cardiology consultation, doubt ACS, suspect chest pain is multifactorial from COPD, possible pneumonia in AFib with RVR (9) Chronic anticoagulation: Code(s): Z79.01 - USP (current) use of anticoagulants Status: Acute Assessment and Plan: Continue Xarelto (10) Gastroesophageal reflux disease: Code(s): K21.9 - Gastro-esophageal reflux disease without esophagitis Status: Acute Assessment and Plan: Protonix Plan DVT prophylaxis with Xarelto Full code Additional Plan 04/04/2022 interval history: patient with a persistent atrial fibrillation rate is fluctuating and patient is in and out of AFib, patient is on sotalol seen by cardiology and added diltiazem 240 mg q.day, patient currently in sinus rhythm, the patient is continue to flip into AFib patient due to consult lease analyst and may need evaluation, currently patient states feeling better denies any chest pain or palpitation however history COPD will continue bronchodilator. Subjective Date/time seen: 04/04/22 18:19 Shortness of breath Narrative: HPI:66-year-old male with past medical history significant for COPD, CAD, hypertension, ALOSNO, PAF is presenting with increasing shortness of breath with cough.? Patient states that for the last 2-3 weeks he has been getting progressively more short of breath and having chest tightness intermittently.? He did call his director shopper marketing who recommended he increase his sotalol from 80 mg twice daily to 120 mg twice daily.? He took the 120 mg dose last evening.? The reason he finally came in is because he had a coughing fit that was quite severe and his chest pain got much worse. In the ER, use found to be in AFib with RVR with a heart rate of 130-140.? He did have some hypoxic episodes.? He was unable to tolerate BiPAP.? He was given a oxygen via nasal cannula.? He was given DuoNebs and Solu-Medrol.? He was then started on a Cardizem drip.? Chest x-ray was concerning for possible early pneumonia and so patient was given Rocephin and azithromycin.? Patient denies any fevers or chills.? No nausea vomiting or diarrhea.? No chest pain or headaches. 04/04/2022 interval history: patient with a persistent atrial fibrillation rate is fluctuating and patient is in and out of AFib, patient is on sotalol
[2022-04-04] MEDS: lisinopriL 10 MG TABLET PO (20:12)
[2022-04-04] MEDS: ATORVASTATIN 20 MG TABLET PO (20:12)
[2022-04-05] VITALS (20 sets, daily range): BP systolic 114–127; BP diastolic 59–66; PULSE 51–67; RESP 16–24; TEMP 36.2–36.3; O2SAT 93–99
[2022-04-05] MEDS: IPRATROPIUM BR 0.02% INH SOLN 0.5 MG/2.5 ML VIAL INHALATION ×3 (02:15→14:24)
[2022-04-05] MEDS: ALBUTEROL SULFATE NEB 2.5 MG/3 ML INH 5 MG INHALATION ×3 (02:15→14:24)
[2022-04-05] MEDS: FLUTICASONE/UMECLIDIN/VILANTER 100-62.5-25 MCG ELLIPTA 1 PUFF INHALATION (08:11)
[2022-04-05] MEDS: predniSONE 20 MG TABLET 60 MG PO (08:32)
[2022-04-05] MEDS: PANTOPRAZOLE 40 MG TABLET PO (08:33)
[2022-04-05] MEDS: SOTALOL HCL 40 MG, SOTALOL HCL 80 MG 120 MG PO (08:33)
[2022-04-05] MEDS: ASPIRIN 81 MG ENTERIC TABLET PO (08:34)
--- NOTE | 2022-04-05 11:48 | PM.PNCARD ---
Progress Note: A&P Assessment and Plan (1) Paroxysmal atrial fibrillation: Code(s): I48.0 - Paroxysmal atrial fibrillation <JESUS Louise - Last Filed: 04/05/22 12:44> Status: Acute <JESUS Louise - Last Filed: 04/05/22 12:44> Assessment and Plan: History of PAF being treated with sotalol. Presented with AF RVR in the setting of acute on chronic COPD exacerbation. Diltiazem added to regimen. Patient has converted to sinus rhythm at this point. QTc stable at 445msec. Continue a/c. Outpatient follow up in 2-3 weeks. OK for discharge today from a cardiac perspective. <JESUS Louise - Last Filed: 04/05/22 12:44> (2) Coronary atherosclerosis of bypass graft: Code(s): I25.810 - Atherosclerosis of coronary artery bypass graft(s) without angina pectoris <JESUS Louise - Last Filed: 04/05/22 12:44> Status: Acute <JESUS Louise - Last Filed: 04/05/22 12:44> Assessment and Plan: Stable. Continue ASA, Statin. <JESUS Louise - Last Filed: 04/05/22 12:44> (3) H/O right coronary artery stent placement: Code(s): Z95.5 - Presence of coronary angioplasty implant and graft <JESUS Louise - Last Filed: 04/05/22 12:44> Status: Acute <JESUS Louise - Last Filed: 04/05/22 12:44> Additional Plan Attending Addendum: I agree with the above documentation and plan of care as outlined above. <Oneil Aguilar MD - Last Filed: 04/05/22 13:46> Subjective Date/time seen: 04/05/22 11:48 <JESUS Louise - Last Filed: 04/05/22 12:44> Interval history: Feeling much better today. Remains in sinus rhythm today. No palpitations, or chest pain. Shortness of breath improving. <JESUS Louise - Last Filed: 04/05/22 12:44> Review of Systems Constitutional: Constitutional: Reports no additional constitutional complaints <JESUS Louise - Last Filed: 04/05/22 12:44> Eyes: Eyes: Reports no additional eye complaints <JESUS Louise - Last Filed: 04/05/22 12:44> ENT: Reports system reviewed and no additional complaints, except as documented <JESUS Louise - Last Filed: 04/05/22 12:44> Cardiovascular: Cardiovascular: Reports as per HPI, Reports palpitations and Reports dyspnea <JESUS Louise - Last Filed: 04/05/22 12:44> Respiratory: Respiratory: Reports dyspnea <JESUS Louise - Last Filed: 04/05/22 12:44> Gastrointestinal: Gastrointestinal: Reports no additional gastrointestinal complaints <JESUS Louise - Last Filed: 04/05/22 12:44> Musculoskeletal: Musculoskeletal: Reports no additional musculoskeletal complaints <JESUS Louise - Last Filed: 04/05/22 12:44> Integumentary/Breasts: Skin/Breast: Reports system reviewed and no additional complaints, except as docu <JESUS Louise - Last Filed: 04/05/22 12:44> Neurologic: Reports system reviewed and no additional complaints, except as documented <JESUS Louise - Last Filed: 04/05/22 12:44> Endocrine: Endocrine: Reports no additional endocrine complaints and Reports palpitations <JESUS Louise - Last Filed: 04/05/22 12:44> Hematologic/Lymphatic: Hematologic/Lymphatic: Reports no additional hematologic/lymphatic complaints <JESUS Louise - Last Filed: 04/05/22 12:44> Allergic/Immunologic: Allergic/Immunologic: Reports no additional allergic/immunologic complaints <JESUS Louise - Last Filed: 04/05/22 12:44> Exam Const: General: comfortable and no acute distress <JESUS Louise - Last Filed: 04/05/22 12:44> HENMT: Head: normal to inspection <JESUS Louise - Last Filed: 04/05/22 12:44> Mouth: Yes moist mucous membranes <JESUS Louise - Last Filed: 04/05/22 12:44> Eyes: Sclera: sclerae normal <JESUS Louise - Last Filed: 04/05/22 12:44> Pupils: Equal, round and reactive pupils present
--- NOTE | 2022-04-05 14:46 | PM.DS ---
DS: Admitting Diagnosis Discharge Date 04/05/2022 Admitting Diagnosis shortness of breath DS: Discharge Diagnosis Discharge Diagnosis (1) COPD exacerbation: Code(s): J44.1 - Chronic obstructive pulmonary disease with (acute) exacerbation Status: Acute Assessment and Plan: Continue DuoNebs, prednisone (2) Hypoxia: Code(s): R09.02 - Hypoxemia Status: Acute Assessment and Plan: Oxygen per nasal cannula as needed, wean as tolerated (3) Essential (primary) hypertension: Code(s): I10 - Essential (primary) hypertension Status: Acute Assessment and Plan: Stable, monitor (4) CAD (coronary artery disease): Code(s): I25.10 - Atherosclerotic heart disease of [place] coronary artery without angina pectoris Status: Acute Assessment and Plan: Consult cardiology (5) ALONSO on CPAP: Code(s): G47.33 - Obstructive sleep apnea (adult) (pediatric); Z99.89 - Dependence on other enabling machines and devices Status: Acute Assessment and Plan: CPAP at night (6) Paroxysmal atrial fibrillation: Code(s): I48.0 - Paroxysmal atrial fibrillation Status: Acute Assessment and Plan: Occasional AFib with RVR, Cardiology consulted, continue Cardizem drip (7) Community acquired pneumonia: Code(s): J18.9 - Pneumonia, unspecified organism Status: Acute Assessment and Plan: 1 dose of Rocephin and azithromycin given in the ER, no blood cultures taken, will check blood cultures now and switch antibiotics to Levaquin 750 mg to complete a 5 day course (8) Chest pain: Code(s): R07.9 - Chest pain, unspecified Status: Acute Assessment and Plan: Trend troponins, monitor telemetry, appreciate Cardiology consultation, doubt ACS, suspect chest pain is multifactorial from COPD, possible pneumonia in AFib with RVR (9) Chronic anticoagulation: Code(s): Z79.01 - termite renewal inspector (current) use of anticoagulants Status: Acute Assessment and Plan: Continue Xarelto (10) Gastroesophageal reflux disease: Code(s): K21.9 - Gastro-esophageal reflux disease without esophagitis Status: Acute Assessment and Plan: Protonix Plan DVT prophylaxis with Xarelto Full code DS: Summary Hospital Course Reason for hospitalization: Chief Complaint: Shortness of breath Narrative: 66-year-old male with past medical history significant for COPD, CAD, hypertension, ALONSO, PAF is presenting with increasing shortness of breath with cough.? Patient states that for the last 2-3 weeks he has been getting progressively more short of breath and having chest tightness intermittently.? He did call his collection systems consultant who recommended he increase his sotalol from 80 mg twice daily to 120 mg twice daily.? He took the 120 mg dose last evening.? The reason he finally came in is because he had a coughing fit that was quite severe and his chest pain got much worse. In the ER, use found to be in AFib with RVR with a heart rate of 130-140.? He did have some hypoxic episodes.? He was unable to tolerate BiPAP.? He was given a oxygen via nasal cannula.? He was given DuoNebs and Solu-Medrol.? He was then started on a Cardizem drip.? Chest x-ray was concerning for possible early pneumonia and so patient was given Rocephin and azithromycin.? Patient denies any fevers or chills.? No nausea vomiting or diarrhea.? No chest pain or headaches. Hospital Course: ?patient with a persistent atrial fibrillation rate is fluctuating and patient is in and out of AFib, patient is on sotalol seen by cardiology and added diltiazem 240 mg q.day,? patient currently in sinus rhythm, the patient is continue to flip into AFib patient due to consult plug sorter and may need evaluation, currently patient states feeling better denies any chest pain or palpitation however history COPD will continue bronchodilator. today patient remains clinically stable his heart ra
== END 2022-04-05 16:04 | disposition home or self-care (01) ==
LOC: ANHED 04-04 01:07 → ANHIMU 04-04 03:18
PROVIDERS: Admitting Provider Student in an Organized Health Care Education/Training Program; Emergency Provider Emergency Medicine; PCP Family Medicine; Visit Provider Family Medicine
DX: J44.0 Chronic obstructive pulmonary disease with (acute) lower respiratory infection (principal); J18.9 Pneumonia, unspecified organism; J44.1 Chronic obstructive pulmonary disease with (acute) exacerbation; Z95.1 Presence of aortocoronary bypass graft; I25.810 Atherosclerosis of coronary artery bypass graft(s) without angina pectoris; Z95.5 Presence of coronary angioplasty implant and graft; I25.10 Atherosclerotic heart disease of native coronary artery without angina pectoris; I10 Essential (primary) hypertension; G47.33 Obstructive sleep apnea (adult) (pediatric); Z99.89 Dependence on other enabling machines and devices; I48.0 Paroxysmal atrial fibrillation; R09.02 Hypoxemia; F41.8 Other specified anxiety disorders; Z90.49 Acquired absence of other specified parts of digestive tract; Z87.891 Personal history of nicotine dependence; I47.1 Supraventricular tachycardia; Z82.49 Family history of ischemic heart disease and other diseases of the circulatory system; Z79.82 Long term (current) use of aspirin; Z79.02 Long term (current) use of antithrombotics/antiplatelets; R94.31 Abnormal electrocardiogram [ECG] [EKG]; Z20.822 Contact with and (suspected) exposure to COVID-19
CPT/HCPCS: 36415; 36600; 71045; 80053; 82805; 84484; 85025; 87040; 93005; 94002; 94003; 94640; 94660; 96365; 96366; 96367; 96375; 96376; 99285; A9270; C9803; G0378; J0456; J0696; J1956; J2405; J2930; J7040; J7512; U0003; U0005

== ENCOUNTER 2022-08-30 08:49 | Outpatient (CLI) | payer OTHER, SELFPAY ==
--- NOTE | ~2022-08-30 | CT_ITS ---
EXAMINATION: CT lung screening DATE: 08/30/2022 09:02 INDICATION: Personal history of nicotine dependence, prior smoker with 30 pack year history TECHNIQUE: Computed tomography (CT) of the chest was performed without intravenous contrast. The dose -length product (DLP) was 251.45 mGy-cm. 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 COMPARISON: 06/28/2021 FINDINGS: There is an approximately 3.5 x 2.5 cm perihilar left upper lobe mass with partial obstruct ion of the left upper lobe bronchus. There is left hilar and right paratracheal lymphadenopathy, cons istent with metastatic disease. There is moderate emphysema. There is scarring of the lung apices. No pleural effusion or pneumothorax. The heart size is normal. There is moderate thoracic spondylosis. Changes of coronary artery bypass grafting are noted. IMPRESSION: 1. Lung-RADS category 4X: Very suspicious. Recommend PET/CT and/or bronchoscopy. Reviewed, dictated and finalized at location A. [employer] IMPRESSION: 1. Lung-RADS category 4X: Very suspicious. Recommend PET/CT and/or bronchoscopy .
== END 2022-08-30 08:50 | disposition home or self-care (01) ==
PROVIDERS: PCP Family Medicine; Visit Provider Internal Medicine Critical Care Medicine
DX: Z12.2 Encounter for screening for malignant neoplasm of respiratory organs (principal); Z87.891 Personal history of nicotine dependence; R91.8 Other nonspecific abnormal finding of lung field
CPT/HCPCS: 71271

== ENCOUNTER 2022-09-11 11:59 | Observation (INO) | payer OTHER, SELFPAY ==
[2022-09-11] VITALS (36 sets, daily range): BP systolic 122–161; BP diastolic 64–111; PULSE 56–72; RESP 9–20; TEMP 36.3–36.4; O2SAT 96–100; BMI 31.8
--- NOTE | ~2022-09-11 | XR_ITS ---
EXAMINATION: XR chest 1V portable INDICATION: Hemoptysis TECHNIQUE: Portable AP chest at 1245 hours COMPARISON: 04/03/[address] dated 08/30/2022 FINDINGS: Again noted is a left perihilar mass. The lungs are free of acute opacities. No pleural eff usion or pneumothorax. Median sternotomy wires and mediastinal surgical clips are seen, likely from p rior coronary artery bypass grafting. IMPRESSION: 1. Left perihilar mass, suspicious for primary bronchogenic carcinoma. Reviewed, dictated and finalized at location A. SS TEST TECHNICIAN
--- NOTE | ~2022-09-11 | CT_ITS ---
EXAMINATION: CT diagnostic chest w con DATE: 09/11/2022 14:27 INDICATION: Lung mass, hemoptysis TECHNIQUE: Computed tomography (CT) of the chest was performed with 100 mL Omnipaque-350 intravenous contrast. Additional 3D reconstructions utilizing coronal maximum intensity projection (MIP) were per formed. Automated exposure control and iterative reconstruction technique were employed. The dose-montserrat gth product was 332.79 mGy-cm. COMPARISON: 08/30/2022 FINDINGS: Although not performed as a dedicated pulmonary embolism protocol there is good contrast opacificatio n of the pulmonary arteries with minimal motion artifact yielding diagnostic for the study demonstrat ing no pulmonary embolism. Moderate emphysema. There is a 4.0 x 4.3 x 4.3 cm spiculated left hilar ma ss measured to include some confluent likely left hilar lymphadenopathy which is concerning for samson virk. There is appears to narrow the left lower lobar bronchi and at least transiently occlude the b ronchi to the left upper lobe and lingula. The mass also narrows the left lower lobar pulmonary arter ies and severely stenosed if not occlude the pulmonary artery to the lingula. No pneumonia, pulmonary edema or pleural effusion. Heart size is normal. Atherosclerotic coronary artery calcification with change of prior median sternotomy and coronary artery bypass grafting. No pericardial effusion. Thora cic aorta is normal in caliber with no dissection. 3.0 x 2.6 cm precarinal lymph node which is likely metastatic. 8 mm fluid attenuation cyst in the right hepatic lobe. Remainder of the visualized upper abdomen is unremarkable. Moderate thoracic spondylosis with chronic appearing mild anterior wedging at T7 and T8. IMPRESSION: 1. No pulmonary embolism or other evident acute cardiopulmonary disease. 2. 4.0 x 4.3 x 4.3 cm spiculated left hilar mass with confluent left hilar lymphadenopathy which sign ificantly narrows some bronchi and pulmonary arteries at the hilum and which is concerning for primar y bronchogenic carcinoma. Consider bronchoscopy for further evaluation. 3. 3.0 x 2.6 cm precarinal lymph node concerning for metastatic disease. 4. Moderate emphysema. Reviewed, dictated and finalized at location A. SITE NURSE IMPRESSION: 1. No pulmonary embolism or other evident acute cardiopulmonary disease. 2. 4.0 x 4.3 x 4.3 cm spiculated left hilar mass with confluent left hilar lymp hadenopathy which significantly narrows some bronchi and pulmonary arteries at the hilum and which is concerning for primary bronchogenic carcinoma. Consider bronchoscopy for further evaluation. 3. 3.0 x 2.6 cm precarinal lymph node concerning for metastatic disease. 4. Moderate emphysema.
--- NOTE | 2022-09-11 12:30 | ED.GENADULT ---
HPI - General Adult General Chief complaint: Unspecified Stated complaint: coughing up blood Time Seen by Provider: 09/11/22 12:25 Source: patient Mode of arrival: EMS Limitations: no limitations History of Present Illness HPI narrative: History of progressive cough, CT scan of the chest showed lung mass 2 weeks ago, scheduled for PET scan next week and biopsy. Patient had a little bit extra coughing this morning with coughing up fresh red bright blood mixed with sputum. Patient reported that the blood was too much about one quarter of a cup. History of hypertension, hyperlipidemia, COPD, CABG, coronary stents, patient on aspirin and Xarelto. Quit smoking 16 years ago Related Data Home Medications Medication Instructions Recorded Confirmed aspirin 81 mg tablet,delayed 81 mg PO DAILY 11/19/19 08/12/22 release (Adult Aspirin Regimen) atorvastatin 20 mg tablet 20 mg PO DAILY 11/19/19 08/12/22 lisinopril 10 mg tablet 10 mg PO DAILY 11/19/19 08/12/22 rivaroxaban 20 mg tablet (Xarelto) 20 mg PO DAILY 04/29/21 08/12/22 diltiazem HCl 240 mg 120 mg PO QAM 08/02/22 08/12/22 capsule,extended release 24 hr, controlled Allergies Allergy/AdvReac Type Severity Reaction Status Date / Time poison mehdi extract Allergy Intermediate Rash Verified 09/11/22 12:14 pollen extracts Allergy Intermediate rash Verified 09/11/22 12:14 Penicillins AdvReac Intermediate Diarrhea Verified 09/11/22 12:14 Review of Systems Review of Systems: All systems reviewed & are unremarkable except as noted in HPI and below PMFSH Past Medical History Medical History CAD (coronary artery disease) COPD (chronic obstructive pulmonary disease) History of tobacco abuse Hypertension ALONSO on CPAP Paroxysmal atrial fibrillation Situational mixed anxiety and depressive disorder Surgical History Surgical History Coronary atherosclerosis of bypass graft Double 2011 H/O colonoscopy With polypectomy on 08/23/2021 H/O right coronary artery stent placement History of appendectomy History of esophagogastroduodenoscopy (EGD) Family History Family History Father Heart disease Hypertension Cerebrovascular accident Mother Carcinoma of colon Sibling Family history of type 2 diabetes mellitus Hypertension Heart disease Pacemaker Social History Social History Social History: Mr. Ca lives at home with his . 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 He is independent in his daily activities. He designates his , Brianna, as his surrogate decision maker and he would like to be a full code. Smoking packs per day: 1 Smoking cigarettes per day: 20.0 Years smoked: 30 Smoking pack-years: 30.00 Smoking status: Former smoker Second hand tobacco smoke exposure: No Alcohol intake: current Drinks per week: 6 Alcohol use details: Patient drinks one 6-pack of beer per week. Substance use: never Substance use type: does not use Gender identity (if verbalized by the patient): Male Sexual Orientation (if Verbalized by the Patient): Straight or Heterosexual Spiritual care concerns: No Agree to blood products: Yes Exam Narrative: General appearance: Well-developed, well-nourished Skin: Normal color Head: Normocephalic, nontraumatic Eyes: Clear conjunctiva ENT: Oropharynx normal, ears normal, nose normal Neck: Supple, nontender Chest and respiratory: Airway patent, no respiratory distress, no accessory muscle use, scattered rhonchi and rales bilaterally Heart: Regular rate/rhythm Abdomen: Soft, nontender, no organomegaly, quiet bowel sounds Vascular: Normal peripheral pulses, normal capillary refill. Musculoskeletal: Normal range of motion, nontender back Neurologic: Alert and oriented ?3, APICULTURE TEACHER is normal as tested, no gross motor de
--- NOTE | 2022-09-11 12:32 | ECG_ITS ---
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
[2022-09-11 13:09] LABS: Basophils Absolute Auto 0.1 K/mm3 (0.0-0.1); Basophils Percent Auto 0.8 % (0.2-1.2); Eosinophils Absolute Auto 0.3 K/mm3 (0-0.3); Eosinophils Percent Auto 3.3 % (0-4.4); Hematocrit 44.6 % (42.0-52.0); Hemoglobin 15.1 g/dL (14.0-18.0); Immature Granulocyte Absolute 0.03 K/mm3 (0.00-0.031); Immature Granulocyte Percent A 0.3 % (0-0.5); Lymphocytes Absolute Auto 1.04 K/mm3 (0.9-3.2); Lymphocytes Percent Auto 11.2 % (18.3-44.2); Mean Corpuscular HGB Conc 33.9 g/dl (32-36); Mean Corpuscular Hemoglobin 29.9 pg (26-34); Mean Corpuscular Volume 88.3 fl (80-100); Mean Platelet Volume 9.8 fl (7.4-10.4); Monocytes Absolute Auto 0.6 K/mm3 (0.1-0.6); Monocytes Percent Auto 5.9 % (2.6-8.5); Neutrophils Absolute Auto 7.3 K/mm3 (1.3-6.7); Neutrophils Percent Auto 78.5 % (45.5-73.1); Platelet Count Result 206 k/mm3 (150-375); Red Blood Count 5.05 M/mm3 (4.6-6.20); Red Cell Distribution Width 13.2 % (11.5-14.5); White Blood Count 9.3 K/mm3 (4.5-10.0)
[2022-09-11 13:21] LABS: Alanine Aminotransferase 21 U/L (6-50); Albumin Level 4.9 g/dL (3.5-5.1); Alkaline Phosphatase 64 U/L (38-126); Anion Gap 8 mmol/L (8-16); Aspartate Amino Transferase 23 U/L (17-59); Bilirubin,Total 0.9 mg/dL (0.2-1.3); Blood Urea Nitrogen 12 mg/dL (9-20); Calcium 9.3 mg/dL (8.4-10.2); Carbon Dioxide 23 mmol/L (22-30); Chloride 104 mmol/L (98-107); Estimated CRCL calculation 84 ml/min; Estimated Glomerular Filt Rate > 60; Glucose 108 mg/dL (65-110); Potassium 4.5 mmol/L (3.4-5.0); Sodium 135 mmol/L (137-145)
[2022-09-11 13:23] LABS: INR 1.7
[2022-09-11 13:30] LABS: NT Pro B Type Natriuretic Pept 52 pg/mL (5-100)
[2022-09-11 13:33] LABS: Partial Thromboplastin Time 41.4 SECONDS (22.3-36.8)
[2022-09-11 13:44] LABS: SARS-CoV-2 RNA PCR Negative
[2022-09-11] MEDS: IPRATROPIUM BR 0.02% INH SOLN 0.5 MG/2.5 ML VIAL INHALATION (16:19)
[2022-09-11] MEDS: ALBUTEROL SULFATE NEB 2.5 MG/3 ML INH 5 MG INHALATION (16:19)
--- NOTE | 2022-09-11 16:20 | PM.IMHP ---
H&P: HPI History of Present Illness Date/Time: 09/11/22 16:20 Chief Complaint: Coughing up blood. Narrative: This is a very pleasant 67-year-old former smoker with COPD, coronary artery disease, hypertension, hyperlipidemia, obstructive sleep apnea, and paroxysmal atrial fibrillation on chronic anticoagulation who presented to the emergency department for evaluation after he coughed up blood. He is followed by Dr. Mercado and had a CT lung screening done on 08/30/2022 given his smoking history. An approximately 3.5 x 2.5 centimeter perihilar left upper lobe mass was noted with partial obstruction of the left upper lobe bronchus and left hilar and right paratracheal lymphadenopathy consistent with metastatic disease. PET-CT has been scheduled for September 11 for further evaluation. Early this morning he coughed up a small amount of blood and not long prior to arrival he reports coughing up nearly a 4th of a cup of bright red blood and he came in for evaluation. Chest CT today showed no evidence of pulmonary embolism or other evident acute cardiopulmonary disease and once again noted the above mass. His vital signs have been stable and hemoglobin and hematocrit are also stable. Case was discussed with Dr. Riggs, on-call oracle manager, who requested the patient be admitted overnight for consultation tomorrow and possible bronchoscopy. At the time my evaluation the patient is resting comfortably. He denies fever, chills, sweats, epistaxis, chest pain, pleuritic pain, shortness a breath, nausea, vomiting, and edema. He has loss perhaps 5 pounds but nothing significant. No sick contacts. Review of Systems Review of Systems: Twelve systems were reviewed and are negative except for as per HPI. [facility] Past Medical History Medical History (Updated 09/11/22 @ 22:30 by Nithya Leon PA-C) Chronic anticoagulation Chronic obstructive pulmonary disease Coronary artery disease History of tobacco abuse Hyperlipidemia Hypertension Obstructive sleep apnea on CPAP Paroxysmal atrial fibrillation Situational mixed anxiety and depressive disorder Surgical History Surgical History (Updated 09/11/22 @ 22:23 by Nithya Leon PA-C) History of appendectomy History of colonoscopy with polypectomy (07/2021) History of coronary artery bypass graft x 2 (2011) History of esophagogastroduodenoscopy (EGD) History of right coronary artery stent placement Family History Family History Father Heart disease Hypertension Cerebrovascular accident Mother Carcinoma of colon Sibling Family history of type 2 diabetes mellitus Hypertension Heart disease Pacemaker Social History Social History (Updated 09/11/22 @ 22:24 by Nithya Leon PA-C) Social History: Surrogate medical decision maker: Brianna Ca, spouse. Code status: Full code. Smoking packs per day: 1 Smoking cigarettes per day: 20.0 Years smoked: 30 Smoking pack-years: 30.00 Smoking status: Former smoker Second hand tobacco smoke exposure: No Alcohol intake: current Drinks per week: 6 Alcohol use details: Patient drinks one 6-pack of beer per week. Substance use: never Substance use type: does not use Additional living arrangements comments: Lives to with and son in [place]. 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 Spiritual care concerns: No Agree to blood products: Yes Meds Home Medications and Allergies Home Medications Medication Instructions Recorded Confirmed Type aspirin 81 mg tablet,delayed 81 mg PO DAILY 11/19/19 08/12/22 History release (Adult Aspirin Regimen) atorvastatin 20 mg tablet 20 mg PO DAILY 11/19/19 08/12/22 History lisinopril 10 mg tablet 10 mg PO DAILY 11/19/19 08/12/22 History rivaroxaban 20 mg tablet (Xarelto) 20 mg PO DAILY 04/29/21 08/12/22 History budesonide 160 mcg-glycopyr 9 2 inh inhalation BID
[2022-09-11 16:46] LABS: Hematocrit 42.5 % (42.0-52.0); Hemoglobin 14.6 g/dL (14.0-18.0)
--- NOTE | 2022-09-11 17:58 | PC.NURSE ---
Patient sitting up on side of bed eating his dinner tray.
[2022-09-11] MEDS: SODIUM CHLORIDE 0.9% IV 1,000 ML 60 ML IV CONT (19:17)
[2022-09-11 21:36] LABS: Hematocrit 41.8 % (42.0-52.0); Hemoglobin 14.2 g/dL (14.0-18.0)
--- NOTE | 2022-09-11 21:53 | ADMGEN ---
This patient, Sajan Ca, was admitted to 3 [facility] Surg Room 322-01. Patient/family oriented to hospital policies and general routines including ID bracelet, bed and alarms, visiting hours, pain management, procedures, bathroom and other care routines, personal items, smoking policy, room service/diet, and visiting hours. Information on how to activate the Rapid Response Team has been discussed. Patient/Family are encouraged to report perceived risks to care and to ask questions if they do not understand what they are told or what they should do.
[2022-09-12 00:36] VITALS: PULSE 70
[2022-09-12] MEDS: SOTALOL HCL 40 MG TABLET PO ×2 (00:36→09:10)
[2022-09-12] MEDS: SOTALOL HCL 80 MG TABLET PO ×2 (00:36→09:10)
[2022-09-12 01:29] VITALS: PULSE 89; O2SAT 95
[2022-09-12 05:58] VITALS: BP 127/73; PULSE 58; RESP 20; TEMP 36.3; O2SAT 97
[2022-09-12 06:54] LABS: Hematocrit 40.5 % (42.0-52.0); Hemoglobin 13.7 g/dL (14.0-18.0); Mean Corpuscular HGB Conc 33.8 g/dl (32-36); Mean Corpuscular Volume 88.6 fl (80-100); Mean Platelet Volume 9.5 fl (7.4-10.4); Platelet Count Result 157 k/mm3 (150-375); Red Blood Count 4.57 M/mm3 (4.6-6.20); Red Cell Distribution Width 13.2 % (11.5-14.5); White Blood Count 6.5 K/mm3 (4.5-10.0)
[2022-09-12 07:02] LABS: Anion Gap 5 mmol/L (8-16); Blood Urea Nitrogen 11 mg/dL (9-20); Calcium 8.9 mg/dL (8.4-10.2); Carbon Dioxide 26 mmol/L (22-30); Chloride 105 mmol/L (98-107); Estimated CRCL calculation 84 ml/min; Estimated Glomerular Filt Rate > 60; Glucose 99 mg/dL (65-110); Magnesium 2.1 mg/dL (1.6-2.3); Potassium 3.8 mmol/L (3.4-5.0); Sodium 136 mmol/L (137-145)
[2022-09-12 09:10] VITALS: PULSE 60
[2022-09-12] MEDS: ATORVASTATIN 20 MG TABLET PO (09:11)
[2022-09-12] MEDS: lisinopriL 10 MG TABLET PO (09:11)
[2022-09-12] MEDS: ALBUTEROL SULFATE NEB 2.5 MG/3 ML INH 5 MG INHALATION (09:22)
[2022-09-12] MEDS: IPRATROPIUM BR 0.02% INH SOLN 0.5 MG/2.5 ML VIAL INHALATION (09:22)
[2022-09-12 09:23] VITALS: PULSE 60; RESP 16
[2022-09-12 09:25] VITALS: PULSE 63; RESP 18
--- NOTE | 2022-09-12 09:52 | PM.CNPUL ---
Assessment and Plan Assessment and plan (1) Mass of left lung: Code(s): R91.8 - Other nonspecific abnormal finding of lung field Status: Acute Assessment and Plan: 67-year-old man with a history of COPD chronically on maintenance bronchodilators, recently found to have a left hilar mass highly suspicious for malignancy, evidence of mediastinal lymphadenopathy on recent chest CT highly suggestive of N3 disease, presented with hemoptysis. Currently he no longer has hemoptysis. On physical exam there is evidence of mild expiratory wheezing suggestive of COPD exacerbation. Patient had been on aspirin and Xarelto for coronary artery disease, intermittent atrial fibrillation. Both medications were discontinued yesterday. Patient is scheduled to undergo PET scan next week. The patient's hemoptysis is most likely related to left lung mass which on chest CT is associated with involvement of the left upper lobe and some atelectasis of the left upper lobe. Plan: continue with nebulized short-acting bronchodilators for wheezing. Add oral prednisone 40 mg daily for 5 days. Patient will remain off both aspirin and Xarelto as he will need bronchoscopy and bronchial biopsy. bronchoscopy will have to be done 5 days from last aspirin dose which was yesterday. The patient would like to be discharged home and return for bronchoscopy. as stated above the patient has most likely N3 disease given large lymph node in the contralateral mediastinum. Would suggest oncology consultation pending bronchoscopy and PET scan. (2) Hemoptysis: Code(s): R04.2 - Hemoptysis Status: Acute (3) Obstructive sleep apnea on CPAP: Code(s): G47.33 - Obstructive sleep apnea (adult) (pediatric); Z99.89 - Dependence on other enabling machines and devices Status: Acute (4) Chronic obstructive pulmonary disease: Code(s): J44.9 - Chronic obstructive pulmonary disease, unspecified Status: Acute (5) COPD exacerbation: Code(s): J44.1 - Chronic obstructive pulmonary disease with (acute) exacerbation Status: Acute (6) History of tobacco abuse: Code(s): Z87.891 - Personal history of nicotine dependence Status: Acute History of Present Illness History of Present Illness Consult date: 09/12/22 Chief complaint: Hemoptysis w/coughing,Anticoagulated w/anticoagula Narrative: This 67-year-old man presented with 1 day history of hemoptysis. The patient has had history of COPD, obstructive sleep apnea on CPAP. Most recently he was found to have a left perihilar mass for which he was scheduled to undergo PET scan. The patient was in his usual state of health until yesterday morning when he started to cough up blood. He had at least 3 episodes of hemoptysis, total amount of hemoptysis being 1/4 of cup. patient had no other respiratory symptoms such as chest pain palpitations fever chills wheezing. The patient had been on aspirin and Xarelto for coronary artery disease and intermittent atrial fibrillation. Both medications were discontinued yesterday. Patient has not had any more hemoptysis over the last 20 hours. He has had known COPD with previous exacerbation in March of 2021. Has been on Breztri inhaler bid and for rescue albuterol inhaler he uses every morning. On most recent pulmonary function testing done in June of 2021 he had moderate obstructive airway disease with evidence of air trapping and significant response to bronchodilators. His lung diffusion capacity was mildly reduced. His FEV1 post bronchodilatation was 1.73 L or 59% predicted. Patient underwent a chest CT yesterday. Chest CT showed a 4.0 x 4.3 x 4.3 cm spiculated left hilar mass with confluent left hilar lymphadenopathy which significantly narrows some bronchi and pulmonary arteries at the hilum and which is concerning for primary bronchogenic carcinoma. In addition there was a 3.0 x 2.6 cm precarinal lymph node concerning for metastatic d
--- NOTE | 2022-09-12 11:24 | P.DS_ITS ---
DS: Admitting Diagnosis Discharge Date September 12, 2022 Admitting Diagnosis pulmonary mass, hemoptysis DS: Discharge Diagnosis Discharge Diagnosis (1) Hemoptysis: Code(s): R04.2 - Hemoptysis Status: Acute Assessment and Plan: Likely related to lung mass; the patient is also on Xarelto. No PE noted on chest CTA. Vitals are stable. Trend H&H. (2) Mass of left lung: Code(s): R91.8 - Other nonspecific abnormal finding of lung field Status: Acute Assessment and Plan: Spiculated left hilar mass noted on CT with lymphadenopathy concerning for metastatic disease. Pulmonology consulted. Patient will be NPO after midnight for possible bronchoscopy tomorrow. (3) Chronic anticoagulation: Code(s): Z79.01 - long term acute care registered nurse (current) use of anticoagulants Status: Acute Assessment and Plan: Patient is on Xarelto for paroxysmal atrial fibrillation. Hold due to hemoptysis and anticipation of possible bronchoscopy. (4) Chronic obstructive pulmonary disease: Code(s): J44.9 - Chronic obstructive pulmonary disease, unspecified Status: Acute Assessment and Plan: No evidence of exacerbation. Continue current inhalers. (5) Obstructive sleep apnea on CPAP: Code(s): G47.33 - Obstructive sleep apnea (adult) (pediatric); Z99.89 - Dependence on other enabling machines and devices Status: Acute Assessment and Plan: CPAP will be provided for the patient to use while hospitalized. (6) Coronary artery disease: Code(s): I25.10 - Atherosclerotic heart disease of [place] coronary artery without angina pectoris Status: Acute Assessment and Plan: No acute issues. Hold aspirin in anticipation of possible bronchoscopy. Continue atorvastatin. (7) Hypertension: Code(s): I10 - Essential (primary) hypertension Status: Acute Assessment and Plan: Blood pressures were reviewed and they are stable. Continue antihypertensives and monitor closely. (8) Paroxysmal atrial fibrillation: Code(s): I48.0 - Paroxysmal atrial fibrillation Status: Acute Assessment and Plan: Currently in a sinus rhythm. Continue sotalol and diltiazem. DS: Summary Hospital Course Hospital Course: admitted for hemoptysis. Found have pulmonary mass which is actively being worked up. Will need bronchoscopy. DC blood thinners for 5 days and he can follow-up Pulmonary for his bronchoscopy. Prednisone and doxycycline for 5 days on discharge for COPD exacerbation Time Spent with Patient Time attestation: Total time spent providing and/or coordinating discharge services: Exam Const: Other: Well-developed, nontoxic-appearing male sitting up in bed eating dinner no distress. Weight: 100.9 kilograms. BMI: 31.9. HENMT: Other: Normocephalic, atraumatic. Nares patent.
--- NOTE | 2022-09-12 11:24 | PM.DS ---
DS: Admitting Diagnosis Discharge Date September 12, 2022 Admitting Diagnosis pulmonary mass, hemoptysis DS: Discharge Diagnosis Discharge Diagnosis (1) Hemoptysis: Code(s): R04.2 - Hemoptysis Status: Acute Assessment and Plan: Likely related to lung mass; the patient is also on Xarelto. No PE noted on chest CTA. Vitals are stable. Trend H&H. (2) Mass of left lung: Code(s): R91.8 - Other nonspecific abnormal finding of lung field Status: Acute Assessment and Plan: Spiculated left hilar mass noted on CT with lymphadenopathy concerning for metastatic disease. Pulmonology consulted. Patient will be NPO after midnight for possible bronchoscopy tomorrow. (3) Chronic anticoagulation: Code(s): Z79.01 - tank terminal gauger (current) use of anticoagulants Status: Acute Assessment and Plan: Patient is on Xarelto for paroxysmal atrial fibrillation. Hold due to hemoptysis and anticipation of possible bronchoscopy. (4) Chronic obstructive pulmonary disease: Code(s): J44.9 - Chronic obstructive pulmonary disease, unspecified Status: Acute Assessment and Plan: No evidence of exacerbation. Continue current inhalers. (5) Obstructive sleep apnea on CPAP: Code(s): G47.33 - Obstructive sleep apnea (adult) (pediatric); Z99.89 - Dependence on other enabling machines and devices Status: Acute Assessment and Plan: CPAP will be provided for the patient to use while hospitalized. (6) Coronary artery disease: Code(s): I25.10 - Atherosclerotic heart disease of [place] coronary artery without angina pectoris Status: Acute Assessment and Plan: No acute issues. Hold aspirin in anticipation of possible bronchoscopy. Continue atorvastatin. (7) Hypertension: Code(s): I10 - Essential (primary) hypertension Status: Acute Assessment and Plan: Blood pressures were reviewed and they are stable. Continue antihypertensives and monitor closely. (8) Paroxysmal atrial fibrillation: Code(s): I48.0 - Paroxysmal atrial fibrillation Status: Acute Assessment and Plan: Currently in a sinus rhythm. Continue sotalol and diltiazem. DS: Summary Hospital Course Hospital Course: admitted for hemoptysis. Found have pulmonary mass which is actively being worked up. Will need bronchoscopy. DC blood thinners for 5 days and he can follow-up Pulmonary for his bronchoscopy. Prednisone and doxycycline for 5 days on discharge for COPD exacerbation Time Spent with Patient Time attestation: Total time spent providing and/or coordinating discharge services: Exam Const: Other: Well-developed, nontoxic-appearing male sitting up in bed eating dinner no distress. Weight: 100.9 kilograms. BMI: 31.9. HENMT: Other: Normocephalic, atraumatic. Nares patent. Oral mucosa moist. Wearing hearing aids bilaterally. Eyes: Other: Pupils are reactive. Extraocular motions intact. Sclerae anicteric. Neck: Other: Supple. No obvious lymphadenopathy. Resp: Other: Respirations are nonlabored and he is speaking in full sentences. Lung sounds are a bit diminished in the mid to upper left lung. Cardio: Other: Regular rate rhythm with normal S1-S2. GI: Other: Abdomen is soft, nontender, and nondistended with positive bowel sounds. Skin: Other: Warm and dry. Neuro: Other: Alert. Cranial nerves 2-12 are grossly intact. No gross focal deficits to casual conversation. Extrem: Other: No cyanosis, clubbing, or edema. Peripheral pulses intact. Psych: Other: Pleasant and cooperative. Appropriate mood and affect. DS: Data Data Completed and Pending Labs on day of discharge: Labs from last 24 hours 09/12/22 09/12/22 09/11/22 06:34 06:34 21:27 WBC 6.5 RBC 4.57 L Hgb 13.7 L 14.2 Hct 40.5 L 41.8 L MCV 88.6 MCH 30.0 MCHC 33.8 RDW 13.2 Plt Count 157 MPV 9.5 I
[2022-09-12 12:22] LABS: Hematocrit 42.2 % (42.0-52.0); Hemoglobin 14.4 g/dL (14.0-18.0)
[2022-09-12] MEDS: predniSONE 20 MG TABLET 40 MG PO (12:55)
== END 2022-09-12 13:35 | disposition home or self-care (01) ==
LOC: ANHED 14:54 → ANH3MEDSUR 19:36
PROVIDERS: Physician Assistant; Admitting Provider Chiropractor; Emergency Provider Emergency Medicine; PCP Family Medicine; Visit Provider Chiropractor
DX: R04.2 Hemoptysis (principal); R91.8 Other nonspecific abnormal finding of lung field; Z79.01 Long term (current) use of anticoagulants; J44.9 Chronic obstructive pulmonary disease, unspecified; Z99.89 Dependence on other enabling machines and devices; G47.33 Obstructive sleep apnea (adult) (pediatric); I25.10 Atherosclerotic heart disease of native coronary artery without angina pectoris; I10 Essential (primary) hypertension; R05.9 Cough, unspecified; R59.1 Generalized enlarged lymph nodes; J44.1 Chronic obstructive pulmonary disease with (acute) exacerbation; I48.0 Paroxysmal atrial fibrillation; Z20.822 Contact with and (suspected) exposure to COVID-19; R00.1 Bradycardia, unspecified; Z95.1 Presence of aortocoronary bypass graft; Z95.5 Presence of coronary angioplasty implant and graft; F43.23 Adjustment disorder with mixed anxiety and depressed mood; Z87.891 Personal history of nicotine dependence; Z79.82 Long term (current) use of aspirin; Z79.51 Long term (current) use of inhaled steroids; Z79.899 Other long term (current) drug therapy
CPT/HCPCS: 36415; 71045; 71260; 80048; 80053; 83735; 83880; 85014; 85018; 85025; 85027; 85610; 85730; 93005; 94640; 94660; 96374; 99285; A9270; G0378; J0131; J7030; J7512; Q9967; U0003; U0005

== ENCOUNTER 2022-09-20 09:23 | Outpatient (CLI) | payer OTHER, SELFPAY ==
--- NOTE | ~2022-09-20 | PE_ITS ---
EXAMINATION: PET skull to mid thigh DATE: 09/20/2022 11:12 INDICATION: Nonspecific abnormal finding of lung field. TECHNIQUE: Blood glucose level was 106 mg/dL. 9.884 mCi of 18-fluorodeoxyglucose (18-FDG) was adminis tered i.v. Low dose computed tomography (CT) images were acquired from the base of the brain to the p roximal thighs for attenuation correction and anatomic localization. Positron emission tomography (PE T) images were acquired in the same distribution beginning 53 minutes after injection. Images includi ng fused PET/CT images were reconstructed in axial, coronal, and sagittal planes. Automated exposure control technique was employed. The dose-length product was 874.77mGy-cm. COMPARISON: Chest CT dated 08/30/2022 FINDINGS: Head/neck: There is relative symmetric increased activity in the oral cavity, palatine tonsils, submandibular gl ands, laryngeal muscles and ocular muscles without CT correlate, likely physiologic. No pathologicall y enlarged cervical lymphadenopathy or suspicious foci of increased FDG uptake in the visualized head or neck. Chest: Mild to moderate emphysema. There is marked FDG uptake with maximal SUV of 23.3 associated with a lef t perihilar hilar mass in left upper lobe and likely confluent left hilar lymphadenopathy together me asuring 5.4 x 3.1 cm . The bronchus supplying the left upper lobe and lingula is occluded and there i s extrinsic compression and narrowing of the left lower lobar bronchus. Remainder of the lungs are cl ear with no other suspicious pulmonary nodules, pneumonia, pulmonary edema, pleural effusion or other FDG avid lesions. 2.6 x 1.8 cm precarinal/inferior right paratracheal FDG avid lymph node with maxim al SUV of 13.1. No other pathologically enlarged or FDG thoracic lymphadenopathy. Heart size is rebecca l. Atherosclerotic coronary artery calcifications. Postoperative change of prior mediastinal main cor onary artery bypass grafting. No pericardial effusion. Abdomen/pelvis/proximal thighs: Physiologic renal accumulation and excretion of FDG activity in the kidneys, bladder and along portio ns of ureters. 6.0 cm low-attenuation and photopenic exophytic cyst at the lower pole of the left kid elle. Normal degree and heterogenous pattern of increased uptake throughout the liver without radiolog ic correlate or dominant FDG avid lesion. The gallbladder, pancreas, spleen and bilateral adrenal gla nds are normal. Mild to moderate uptake scattered throughout the bowels without radiologic correlate, also likely physiologic. There is moderate colonic diverticulosis with a sigmoid and descending colo n predominance. There is no adjacent inflammatory change to suggest diverticulitis. Bilateral small fat-containing inguinal hernias. No free intraperitoneal gas or fluid. No other abnormal foci of inc reased FDG uptake or pathologically enlarged lymphadenopathy in the abdomen, pelvis or proximal thigh s. Musculoskeletal: Relatively symmetric mild uptake throughout the musculature of the bilateral hands and forearms which is likely physiologic. Small regions of sclerosis without FDG uptake suggestive of osteonecrosis at the bilateral anterosuperior femoral heads. No other suspicious lytic, blastic or FDG avid bone lesio ns. IMPRESSION: 1. Markedly FDG avid left upper lobe perihilar mass concerning for primary bronchogenic carcinoma. 2. FDG avid left hilar and precarinal lymphadenopathy consistent with metastatic disease. No other mo re remote metastatic disease in the chest, abdomen or pelvis. 3. Diverticulosis. 4. 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 Reviewed, dictated and finalized at location A. 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 Markedly FDG avid left upper lobe perihilar mass concerning for primary bron chogenic
[2022-09-20 09:49] LABS: Glucose Point of Care 106 mg/dl (65-105)
== END 2022-09-20 09:24 | disposition home or self-care (01) ==
PROVIDERS: PCP Family Medicine; Visit Provider Internal Medicine Critical Care Medicine
DX: R91.8 Other nonspecific abnormal finding of lung field (principal); R59.0 Localized enlarged lymph nodes; K57.30 Diverticulosis of large intestine without perforation or abscess without bleeding; M87.852 Other osteonecrosis, left femur; M87.851 Other osteonecrosis, right femur
CPT/HCPCS: 78815; A9552

== ENCOUNTER 2022-09-24 22:19 | Emergency (ER) | payer OTHER, SELFPAY ==
[2022-09-24 22:29] VITALS: BP 137/84; PULSE 74; RESP 22; TEMP 36.3; O2SAT 97
--- NOTE | 2022-09-24 23:27 | PC.NURSE ---
Patient states he is feeling better and states he is going home. Patient informed of risks of leaving before seeing a provider and educated to return to the ED if his symptoms worsen or return. Patient stated he wishes to go home. Patient IV removed. Patient has family on the way to take him home. Patient ambulates with a steady gait, a/ox4.
== END 2022-09-24 23:30 | disposition left against medical advice (07) ==
PROVIDERS: PCP Family Medicine
DX: R04.2 Hemoptysis (principal)
CPT/HCPCS: 99199

== ENCOUNTER 2022-12-24 20:37 | Inpatient (IN) | payer OTHER, SELFPAY ==
[2022-12-24] VITALS (35 sets, daily range): BP systolic 89–111; BP diastolic 51–83; PULSE 77–166; RESP 17–30; TEMP 36.6; O2SAT 94–100
--- NOTE | ~2022-12-24 | CT_ITS ---
EXAMINATION: CT abdomen pelvis w con DATE: 12/25/2022 00:56 INDICATION: Nausea, vomiting, and diarrhea. Upper abdominal pain. TECHNIQUE: Computed tomography (CT) of the abdomen and pelvis was performed with 100 mL Omnipaque 350 intravenous contrast. Automated exposure control and iterative reconstruction technique were employe d. The dose-length product was 1045.81 mGy-cm. COMPARISON: PET/CT 09/20/2022 FINDINGS: The visualized portions of the lung bases demonstrate mild atelectasis. There is mild emphy sema. No pleural effusion. The heart size is normal. No pericardial effusion. There is an 8 mm cyst i n the liver. The gallbladder is normal in size. Gallbladder wall thickening is noted. The spleen, lamb creas, and adrenal glands are normal. There are cysts in the kidneys measuring up to 6.0 cm on the le ft. There is liquid stool in the colon correlating with the symptom of diarrhea. There is diverticulo sis of the colon. There is wall thickening of the sigmoid colon, consistent with colitis. The prostat e is mildly enlarged. There are bilateral inguinal hernias containing fat. There are no pathologicall y enlarged lymph nodes. There is no free intraperitoneal fluid. There is calcified atherosclerosis of the aorta and many of the other arteries. There is moderate lower lumbar spondylosis. IMPRESSION: 1. Wall thickening of the gallbladder, likely acute cholecystitis. 2. Sigmoid colitis. Reviewed, dictated and finalized at location A.
--- NOTE | ~2022-12-24 | US_ITS ---
EXAMINATION: US abdomen limited DATE: 12/27/2022 15:57 INDICATION: Acute cholecystitis TECHNIQUE: Multiple grayscale and Doppler ultrasound images of limited portions of the abdomen were o btained. COMPARISON: CT abdomen pelvis 12/25/2022. FINDINGS: The visualized portions of the pancreas are normal. The liver is normal with normal echogen icity and echotexture. No surface nodularity. Normal hepatopetal flow in the main portal vein. Diffus ludwin and uniformly thickened gallbladder wall measuring up to 3 mm. No pericholecystic fluid or stones . The common bile duct measures 3 mm. There was no sonographic Serna sign. IMPRESSION: Mild gallbladder wall thickening, a nonspecific finding. Consider hepatobiliary scanning for further evaluation. Reviewed, dictated and finalized at location K.
[2022-12-24] MEDS: METOCLOPRAMIDE HCL INJ 10 MG/2 ML VIAL IV PUSH (20:50)
[2022-12-24] MEDS: diphenhydrAMINE HCl INJ 50 MG/ML VIAL 25 MG IV PUSH (20:50)
[2022-12-24] MEDS: SODIUM CHLORIDE 0.9% IV 1,000 ML 999 ML IV CONT ×2 (20:50→22:05)
[2022-12-24 20:57] LABS: Basophils Percent Auto 1.8 % (0.2-1.2); Hematocrit 27.8 % (42.0-52.0); Hemoglobin 9.8 g/dL (14.0-18.0); Immature Platelet Fraction Pct 2.7 % (0.9-11.2); Lymphocytes Percent Auto 18.2 % (18.3-44.2); Mean Corpuscular HGB Conc 35.3 g/dl (32-36); Mean Corpuscular Hemoglobin 30.1 pg (26-34); Mean Corpuscular Volume 85.3 fl (80-100); Mean Platelet Volume 9.6 fl (7.4-10.4); Monocytes Percent Auto 7.3 % (2.6-8.5); Neutrophils Absolute Auto 0.4 K/mm3 (1.3-6.7); Neutrophils Percent Auto 72.7 % (45.5-73.1); Platelet Count Result 84 k/mm3 (150-375); Red Blood Count 3.26 M/mm3 (4.6-6.20); Red Cell Distribution Width 14.5 % (11.5-14.5)
[2022-12-24] MEDS: dilTIAZem HCl INJ 25 MG/5 ML VIAL 10 MG IV PUSH (21:00)
[2022-12-24 21:09] LABS: Alanine Aminotransferase 22 U/L (6-50); Albumin Level 3.8 g/dL (3.5-5.1); Alkaline Phosphatase 54 U/L (38-126); Anion Gap 9 mmol/L (8-16); Aspartate Amino Transferase 19 U/L (17-59); Bilirubin,Total 3.2 mg/dL (0.2-1.3); Blood Urea Nitrogen 19 mg/dL (9-20); Calcium 8.9 mg/dL (8.4-10.2); Carbon Dioxide 24 mmol/L (22-30); Chloride 99 mmol/L (98-107); Estimated CRCL calculation 82 ml/min; Estimated Glomerular Filt Rate > 60; Glucose 113 mg/dL (65-110); Lipase 68 U/L (23-300); Magnesium 1.5 mg/dL (1.6-2.3); Potassium 3.8 mmol/L (3.4-5.0); Sodium 132 mmol/L (137-145)
--- NOTE | 2022-12-24 21:17 | ED.GENADULT ---
HPI - General Adult General Chief complaint: Nausea/Vomiting/Diarrhea <Wilberto Crawford MD - Last Filed: 12/29/22 07:41> Stated complaint: Nausea/Vomiting <Wilberto Crawford MD - Last Filed: 12/29/22 07:41> Time Seen by Provider: 12/24/22 20:39 <Wilberto Crawford MD - Last Filed: 12/29/22 07:41> History of Present Illness HPI narrative: 67-year-old male presenting to the emergency department for evaluation of nausea vomiting and diarrhea. Patient is currently being treated for lung cancer at [facility] by Dr. Myers and Dr. Ricardo. Patient states he had his last chemo on Monday his most recent radiation was on Monday and his last radiation will be on Monday. Patient does have a prior history of atrial fibrillation and does take sotalol and Cardizem. Patient thinks that he was unable to take his Cardizem today due to the nausea and vomiting. Patient also describes some associate abdominal cramping with this. Patient denies any associated chest pain or shortness of breath. <Wilberto Crawford MD - Last Filed: 12/29/22 07:41> Related Data Home medications: Home Medications Medication Instructions Recorded Confirmed lisinopril 10 mg tablet 10 mg PO HS 11/19/19 12/26/22 diltiazem HCl 120 mg 120 mg PO DAILY 11/04/22 12/26/22 capsule,extended release 24 hr, controlled ondansetron HCl 8 mg tablet 8 mg PO Q8H PRN Nausea 11/04/22 12/26/22 prochlorperazine maleate 10 mg 10 mg PO Q6H PRN Nausea 11/04/22 12/26/22 tablet atorvastatin 20 mg tablet 20 mg PO HS 12/26/22 12/26/22 pantoprazole 40 mg tablet,delayed 40 mg PO DAILY 12/26/22 12/26/22 release sotalol 120 mg tablet 80 mg PO Q12HR 12/26/22 12/26/22 <Wilberto Crawford MD - Last Filed: 12/29/22 07:41> Allergies/adverse reactions: Allergies Allergy/AdvReac Type Severity Reaction Status Date / Time poison mehdi extract Allergy Intermediate Rash Verified 12/24/22 20:43 pollen extracts Allergy Intermediate rash Verified 12/24/22 20:43 Penicillins AdvReac Intermediate Diarrhea Verified 12/24/22 20:43 <Wilberto Crawford MD - Last Filed: 12/29/22 07:41> Review of Systems Review of Systems: All systems reviewed & are unremarkable except as noted in HPI and below <Wilberto Crawford MD - Last Filed: 12/29/22 07:41> [facility] Past Medical History Medical History: Medical History Chronic obstructive pulmonary disease Coronary artery disease Family history of colon cancer History of colon polyps History of tobacco abuse Hyperlipidemia Hypertension Obstructive sleep apnea on CPAP Paroxysmal atrial fibrillation Previously on Xarelto which was stopped in August 2022 due to hemoptysis 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 <Wilberto Crawford MD - Last Filed: 12/29/22 07:41> Surgical History Surgical History: Surgical History History of appendectomy Open appendectomy in the 1969's History of colonoscopy with polypectomy (07/2021) History of coronary artery bypass graft x 2 (2011) History of esophagogastroduodenoscopy (EGD) History of right coronary artery stent placement x2 in 2019 S/P bronchoscopy <Wilberto Crawford MD - Last Filed: 12/29/22 07:41> Family History Family History: Family History Father Heart disease Hypertension Cerebrovascular accident Mother Carcinoma of colon Sibling Family history of type 2 diabetes mellitus Hypertension Heart disease Pacemaker <Wilberto Crawford MD - Last Filed: 12/29/22 07:41> Social History Social History: Social History Social History: 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 He has 4 children. He lives with his . Surrogate medical decision maker: Brianna Ca, spouse. Code
[2022-12-24 21:19] LABS: White Blood Count 0.6 K/mm3 (4.5-10.0)
[2022-12-24] MEDS: MAGNESIUM SULF 1 GM/D5W 100 ML 1 GM/100 ML BAG IVPB (21:47)
[2022-12-24] MEDS: dilTIAZem 100 MG/100 ML 100 MG/100 ML BAG IV CONT (22:02)
[2022-12-24] MEDS: SOTALOL HCL 40 MG, SOTALOL HCL 80 MG 120 MG PO (23:13)
--- NOTE | 2022-12-24 23:23 | PC.NURSE ---
Consulted Dr. Crawford due to hypotension. Advised to pause Cardizem.
[2022-12-24 23:24] LABS: Appearance Urine Clear (Clear); Bilirubin Urine Negative (Negative); Blood Urine Negative (Negative); Color Urine Yellow (Yellow); Glucose Urine UA Negative (Negative); Ketones Urine Negative (Negative); Leukocyte Esterase Ur Negative LEU/UL (Negative); Nitrate Urine Negative (Negative); Protein Urine Negative (Negative); Specific Grav Ur 1.007 (1.001-1.035)
[2022-12-24 23:44] LABS: Add Urine Microscopic? NO
--- NOTE | 2022-12-24 23:59 | ECG_ITS ---
Measurements Intervals [place] Rate: 119 P: [place]: 0 QRS: 51 QRSD: 79 T: 61 QT: 330 QTc: 465 Interpretive Statements ATRIAL FIBRILLATION WITH RAPID VENTRICULAR RESPONSE WITH ABERRANT CONDUCTION OR VENTRICULAR PREMATURE COMPLEXES Electronically Signed On 12-25-2022 12:53:23 CDT by Barrett Buckley M.D.
[2022-12-25] VITALS (50 sets, daily range): BP systolic 90–124; BP diastolic 54–104; PULSE 67–162; RESP 11–26; TEMP 36.9; O2SAT 67–100
[2022-12-25] MEDS: SODIUM CHLORIDE 0.9% IV 1,000 ML 250 ML IV CONT (00:06)
[2022-12-25] MEDS: METOCLOPRAMIDE HCL INJ 10 MG/2 ML VIAL IV PUSH (03:20)
--- NOTE | 2022-12-25 04:33 | PC.NURSE ---
spoke with [facility] access in regards to a bed. State they will call back if COVID test is needed.
[2022-12-25] MEDS: PIPERACILLN/TAZ 3.375GM/NS50ML 3.375 GM/50 ML BAG IVPB ×3 (04:50→18:20)
[2022-12-25] MEDS: MAGNESIUM SULF 2 GM/WATER 50ML 2 GM/50 ML BAG IVPB (06:12)
[2022-12-25] MEDS: SODIUM CHLORIDE 0.9% IV 1,000 ML 250 ML (07:06)
--- NOTE | 2022-12-25 07:28 | ECG_ITS ---
Measurements Intervals [place] Rate: 76 P: 58 MA: 142 QRS: 34 QRSD: 86 T: 61 QT: 372 QTc: 418 Interpretive Statements SINUS RHYTHM COMPARED TO ECG 12/24/2022 20:58:37 SINUS RHYTHM NOW PRESENT Electronically Signed On 12-25-2022 12:58:09 CDT by Barrett Buckley M.D.
--- NOTE | 2022-12-25 14:45 | PC.NURSE ---
called Leslie for update. states pt is still on waiting list and will most likely get a bed tomorrow.
[2022-12-25] MEDS: SODIUM CHLORIDE 0.9% IV 1,000 ML 100 ML IV CONT (14:57)
[2022-12-25] MEDS: IPRATROPIUM BR 0.02% INH SOLN 0.5 MG/2.5 ML VIAL INHALATION (18:25)
[2022-12-26] VITALS (41 sets, daily range): BP systolic 109–137; BP diastolic 60–76; PULSE 66–88; RESP 10–20; TEMP 36.6–37.1; O2SAT 96–100; BMI 30.2
[2022-12-26] MEDS: PIPERACILLN/TAZ 3.375GM/NS50ML 3.375 GM/50 ML BAG IVPB ×5 (00:20→23:59)
--- NOTE | 2022-12-26 00:42 | ECG_ITS ---
Measurements Intervals [place] Rate: 73 P: 65 AK: 147 QRS: 49 QRSD: 88 T: 64 QT: 387 QTc: 429 Interpretive Statements SINUS RHYTHM MINIMAL ST DEPRESSION [0.025+ mV ST DEPRESSION] COMPARED TO ECG 12/25/2022 00:02:17 NO SIGNIFICANT CHANGES Electronically Signed On 12-27-2022 14:49:53 CDT by Rachna Eastman M.D.
[2022-12-26] MEDS: SODIUM CHLORIDE 0.9% IV 1,000 ML 100 ML IV CONT (01:04)
--- NOTE | 2022-12-26 01:25 | PC.NURSE ---
Pt placed in hospital bed for comfort
[2022-12-26 05:35] LABS: Lactic Acid Reflex 0.7 mmol/L (0.7-2.0)
[2022-12-26 05:55] LABS: Hematocrit 22.1 % (42.0-52.0); Hemoglobin 7.7 g/dL (14.0-18.0); Immature Platelet Fraction Pct 2.7 % (0.9-11.2); Mean Corpuscular HGB Conc 34.8 g/dl (32-36); Mean Corpuscular Hemoglobin 30.1 pg (26-34); Mean Corpuscular Volume 86.3 fl (80-100); Mean Platelet Volume 9.4 fl (7.4-10.4); Platelet Count Result 82 k/mm3 (150-375); Red Blood Count 2.56 M/mm3 (4.6-6.20); Red Cell Distribution Width 14.6 % (11.5-14.5)
[2022-12-26 05:59] LABS: Alanine Aminotransferase 17 U/L (6-50); Albumin Level 3.5 g/dL (3.5-5.1); Alkaline Phosphatase 51 U/L (38-126); Anion Gap 7 mmol/L (8-16); Aspartate Amino Transferase 17 U/L (17-59); Bilirubin,Total 1.2 mg/dL (0.2-1.3); Blood Urea Nitrogen 12 mg/dL (9-20); Calcium 8.3 mg/dL (8.4-10.2); Carbon Dioxide 24 mmol/L (22-30); Chloride 106 mmol/L (98-107); Estimated CRCL calculation 82 ml/min; Estimated Glomerular Filt Rate > 60; Glucose 92 mg/dL (65-110); Lipase 104 U/L (23-300); Potassium 3.5 mmol/L (3.4-5.0); Sodium 137 mmol/L (137-145)
[2022-12-26] MEDS: ONDANSETRON INJ 4 MG/2 ML VIAL IV PUSH (06:10)
[2022-12-26 06:39] LABS: White Blood Count 0.5 K/mm3 (4.5-10.0)
[2022-12-26 06:46] LABS: Hypochromasia 1+ (NORMAL); Lymphocytes Absolute Manual 0.25 K/mm3 (1.1-4.5); Microcytosis 3+ (NORMAL); Monocytes Absolute Manual 0.05 K/mm3 (0.1-0.90); Monocytes Percent Manual 10 % (3-9); Neutrophils Percent Manual 40 % (46-73); Ovalocytes 1+ (NORMAL); Platelet Estimate Decreased (Adequate); Schistocytes None Seen (NORMAL); Total Cells Counted 10
--- NOTE | 2022-12-26 09:55 | PC.NURSE ---
Talked with Gisell from [facility] transfer center, pt is on waiting list, still no available at this time.
--- NOTE | 2022-12-26 11:09 | PC.NURSE ---
report received from Fredrick SULLIVAN at this time including plan of care
[2022-12-26] MEDS: SODIUM CHLORIDE 0.9% IV 1,000 ML 100 ML (11:34)
--- NOTE | 2022-12-26 14:55 | PM.IMHP ---
H&P: HPI History of Present Illness Date/Time: 12/26/22 14:55 Chief Complaint: Nausea vomiting diarrhea Narrative: This is a 67-year-old male patient who has a history of lung cancer and is seen by Oncology at [facility] [place]. He seen by Dr. Myers and Dr. Ricardo. The patient underwent his last chemotherapy 6 days ago. Today was supposed to be his last day for radiation. The patient stated that he has had a poor appetite because he has some esophageal carrasco. The patient also has been having some nausea vomiting and some diarrhea. The patient has a history of atrial fibrillation and is on sotalol Cardizem. The patient has not been able to take his Cardizem due to the nausea vomiting. Patient is in his iris. And he has pancytopenia. His WBC on 12/24/2021 was 0.6 and today it is 0.5. H&H was 9.8 and 27.8 on 12/24/2022 and is now 7.7 and 22.1. His platelets were 84 and now there 82. Abdominal pelvis CT was read as wall thickening of the gallbladder likely acute cholecystitis. Sigmoid colitis. The patient was started on Zosyn. The surgery team has been consulted today. The patient has been accepted to [facility] however there are no beds available at this time. It was reported that he would be 2 or 3 days before the patient had a bed. The patient is agreeable to staying in [facility]. The patient stated if he is not accepted to [facility] he would prefer to go to [facility]. The patient is currently in sinus rhythm. The patient was given IV fluids and Zosyn in the emergency room. The patient stated he is having some epigastric pain that radiates to his back. He has no further complaints of nausea vomiting. The patient is being admitted to observation status on the date of service of 12/26/2022. Review of Systems Review of Systems: All systems reviewed & are unremarkable except as noted in HPI and below Constitutional: Constitutional: Reports as per HPI and Reports no additional constitutional complaints Eyes: Eyes: Reports as per HPI and Reports no additional eye complaints ENT: Reports system reviewed and no additional complaints, except as documented and Reports Normal hearing present Cardiovascular: Cardiovascular: Reports no additional cardiovascular complaints Respiratory: Respiratory: Reports no additional respiratory complaints and Reports no additional respiratory complaints Gastrointestinal: Gastrointestinal: Reports as per HPI and Reports no additional gastrointestinal complaints Musculoskeletal: Musculoskeletal: Reports no additional musculoskeletal complaints Integumentary/Breasts: Skin/Breast: Reports system reviewed and no additional complaints, except as docu and Reports as per HPI Neurologic: Reports system reviewed and no additional complaints, except as documented, Reports as per HPI and Reports Normal hearing present Psychiatric: Psychiatric: Reports no additional psychiatric complaints and Reports as per HPI Endocrine: Endocrine: Reports no additional endocrine complaints Hematologic/Lymphatic: Hematologic/Lymphatic: Reports no additional hematologic/lymphatic complaints Allergic/Immunologic: Allergic/Immunologic: Reports no additional allergic/immunologic complaints [facility] Past Medical History Medical History (Updated 12/26/22 @ 18:08 by Danisha Rivera NP) Chronic anticoagulation Chronic obstructive pulmonary disease Coronary artery disease Family history of colon cancer History of colon polyps History of tobacco abuse Hyperlipidemia Hypertension Obstructive sleep apnea on CPAP Paroxysmal atrial fibrillation Situational mixed anxiety and depressive disorder Surgical History Surgical History Coronary atherosclerosis of bypass graft Double 2011 H/O right coronary artery stent placement History of appendectomy History of colonoscopy with polypectomy (07/2021) History of coronary artery bypass graft x 2 (2011) History o
--- NOTE | 2022-12-26 17:14 | ADMGEN ---
This patient, Sajan Ca, was admitted to Medical Room 344-01. Patient/family oriented to hospital policies and general routines including ID bracelet, bed and alarms, visiting hours, pain management, procedures, bathroom and other care routines, personal items, smoking policy, room service/diet, and visiting hours. Information on how to activate the Rapid Response Team has been discussed. Patient/Family are encouraged to report perceived risks to care and to ask questions if they do not understand what they are told or what they should do.
[2022-12-26] MEDS: FAMOTIDINE 20 MG/2 ML VIAL IV PUSH (17:27)
[2022-12-26] MEDS: LOPERAMIDE HCL 2 MG CAPSULE PO (18:43)
[2022-12-26] MEDS: lisinopriL 10 MG TABLET PO (20:35)
[2022-12-26] MEDS: SOTALOL HCL 80 MG TABLET PO (20:35)
[2022-12-26 21:18] LABS: IFOB Positive Control Positive; Immunochemical Fecal Occult Bl Negative (N)
[2022-12-26 21:39] LABS: Toxigenic C. Diff NEGATIVE (NEGATIVE)
[2022-12-27] VITALS (14 sets, daily range): BP systolic 104–130; BP diastolic 44–71; PULSE 65–167; RESP 14–20; TEMP 36.4–37; O2SAT 96–100; BMI 30.2
--- NOTE | 2022-12-27 | ECHO_ITS ---
Patient Info Name: Sajan Ca Age: 67 years : 1955 Gender: Male Ht: 70 in Wt: 210 lbs BSA: 2.19 m2 HR: 74 bpm BP: 130 / 71 mmHg Heart Rhythm: Atrial Fibrillation, Tachycardia Technical Quality: Fair Exam Date: 12/27/2022 1:35 PM Exam Location: [facility] Pulmonary Patient Status: Inpatient Admit Date: 12/27/2022 Staff Ordering Physician: Mayte Pugh MD Office Machines Teacher: Lizet Schmitt RDCS Attending Provider: Martha Baron MD Exam Type: CA echo dop color flow w con Study Info Indications - afib Complete two-dimensional, color flow and Doppler transthoracic echocardiogram is performed with contrast to opacify the left ventricle and to improve the deliniation of the left ventricle endocardial borders. Contrast/Agitated Saline Contrast/Ag. Saline: Definity Amount: 3.00 ml Administered By: Lizet Schmitt RDCS Existing IV Access: Yes IV Access Condition: patent with no signs of infiltration Summary 1. Left ventricular chamber dimension is normal. 2. Left ventricular systolic function is normal, estimated at 60-65%. 3. The left ventricular diastolic function is grade I diastolic dysfunction. 4. Right ventricular systolic function is normal. 5. There is mild tricuspid valve regurgitation. Left Ventricle Left ventricular chamber dimension is normal. Left ventricular systolic function is normal, estimated at 60-65%. The left ventricular diastolic function is grade I diastolic dysfunction. Right Ventricle Right ventricular chamber dimension is normal. Right ventricular systolic function is normal. Left Atria Left atrial chamber dimension is normal. Right Atria Right atrial chamber dimension is normal. Atrial Septum Intact interatrial septum visualized by color flow imaging. Aortic Valve The aortic valve is probable trileaflet. There is no aortic valve stenosis. There is no aortic valve regurgitation. Pulmonic Valve The pulmonic valve is not well visualized. Mitral Valve There is trace mitral valve regurgitation. Tricuspid Valve There is mild tricuspid valve regurgitation. Pericardium/Pleural There is no pericardial effusion. Inferior Vena Cava Normal inferior vena cava with >50% collapse upon inspiration consistent with normal right atrial pressure, 3 mmHg. Aorta The aortic root size at the sinus of Valsalva is normal. Left Ventricular Outflow Tract Name Value Normal LVOT 2D LVOT Diameter 1.97 cm LVOT Doppler LVOT Peak Gradient 8 mmHg LVOT Mean Gradient 4 mmHg LVOT VTI 24.32 cm LVOT VTI/AV VTI Ratio 0.83 LVOT Stroke Volume 73.81 ml LVOT CO 4.83 l/min LVOT CI 2.20 L/min/m2 Pulmonic Valve Name Value Normal RVOT D
[2022-12-27] MEDS: FAMOTIDINE 20 MG/2 ML VIAL IV PUSH ×2 (05:32→17:48)
[2022-12-27] MEDS: PIPERACILLN/TAZ 3.375GM/NS50ML 3.375 GM/50 ML BAG IVPB ×3 (05:32→18:15)
[2022-12-27 06:43] LABS: Hematocrit 22.6 % (42.0-52.0); Hemoglobin 7.9 g/dL (14.0-18.0); Immature Platelet Fraction Pct 3.1 % (0.9-11.2); Lymphocytes Absolute Auto 0.14 K/mm3 (0.9-3.2); Lymphocytes Percent Auto 25.9 % (18.3-44.2); Mean Corpuscular Hemoglobin 30.2 pg (26-34); Mean Corpuscular Volume 86.3 fl (80-100); Mean Platelet Volume 9.4 fl (7.4-10.4); Monocytes Percent Auto 7.4 % (2.6-8.5); Neutrophils Absolute Auto 0.4 K/mm3 (1.3-6.7); Neutrophils Percent Auto 66.7 % (45.5-73.1); Platelet Count Result 87 k/mm3 (150-375); Red Blood Count 2.62 M/mm3 (4.6-6.20)
[2022-12-27 06:52] LABS: Alanine Aminotransferase 16 U/L (6-50); Albumin Level 3.4 g/dL (3.5-5.1); Alkaline Phosphatase 48 U/L (38-126); Anion Gap 8 mmol/L (8-16); Aspartate Amino Transferase 19 U/L (17-59); Bilirubin,Total 1.4 mg/dL (0.2-1.3); Blood Urea Nitrogen 8 mg/dL (9-20); Calcium 8.3 mg/dL (8.4-10.2); Carbon Dioxide 22 mmol/L (22-30); Chloride 104 mmol/L (98-107); Estimated CRCL calculation 92 ml/min; Estimated Glomerular Filt Rate > 60; Glucose 83 mg/dL (65-110); Lipase 125 U/L (23-300); Potassium 3.4 mmol/L (3.4-5.0); Sodium 134 mmol/L (137-145)
[2022-12-27 07:04] LABS: White Blood Count 0.5 K/mm3 (4.5-10.0)
[2022-12-27 07:05] LABS: Anisocytosis 1+ (NORMAL); Platelet Estimate Decreased (Adequate); Poikilocytosis 1+ (NORMAL); Schistocytes None Seen (NORMAL)
[2022-12-27] MEDS: FLUTICASONE/UMECLIDIN/VILANTER 100-62.5-25 MCG ELLIPTA 1 PUFF INHALATION (08:13)
[2022-12-27] MEDS: SOTALOL HCL 80 MG TABLET PO ×2 (09:29→20:30)
--- NOTE | 2022-12-27 10:19 | ECG_ITS ---
Measurements Intervals [place] Rate: 139 P: [place]: 0 QRS: 48 QRSD: 107 T: 89 QT: 356 QTc: 543 Interpretive Statements ATRIAL FLUTTER/TACHYCARDIA WITH RAPID VENTRICULAR RESPONSE ST DEVIATION AND MODERATE T-WAVE ABNORMALITY, CONSIDER ANTEROLATERAL ISCHEMIA [-0.1+ mV T WAVE IN V3-V6] COMPARED TO ECG 12/26/2022 00:42:57 ATRIAL FLUTTER NOW PRESENT Electronically Signed On 12-27-2022 16:06:27 CDT by Rachna Eastman M.D.
[2022-12-27] MEDS: dilTIAZem HCl INJ 25 MG/5 ML VIAL 10 MG IV PUSH (10:37)
[2022-12-27] MEDS: POTASSIUM CHLORIDE 20 MEQ TABLET 40 MEQ PO (11:51)
[2022-12-27] MEDS: MAGNESIUM SULF 2 GM/WATER 50ML 2 GM/50 ML BAG IVPB (11:54)
--- NOTE | 2022-12-27 12:20 | PM.CNGS ---
Assessment and Plan Assessment and plan (1) Cholecystitis: Code(s): K81.9 - Cholecystitis, unspecified Status: Acute Assessment and Plan: CT abdomen/pelvis in the ER 2 days ago suggests possible cholecystitis, no visible gallstones on CT. RUQ US ordered for today. The patient is a poor surgical candidate given his severe neutropenia. We would recommend to continue the IV Zosyn and will await the ultrasound results. If the ultrasound suggests acute cholecystitis, then we could consider getting a HIDA scan to further evaluate for cystic duct occlusion. Currently, his abdominal pain has improved and he is tolerating a low fat diet. Hopefully we can continue with conservative treatment, although if he has more evidence of acute cholecystitis and continues to have abdominal pain, then we may consider percutaneous cholecystostomy tube placement. (2) Hyperbilirubinemia: Code(s): E80.6 - Other disorders of bilirubin metabolism Status: Acute Assessment and Plan: Total bilirubin 3.2 initially in the ER on 12/24 but has since normalized. Today it is slightly up at 1.4. Continue to trend labs, see plan above. If his bilirubin trends up, then may need to consider MRCP. (3) Atrial fibrillation with rapid ventricular response: Code(s): I48.91 - Unspecified atrial fibrillation Status: Acute Assessment and Plan: Hx paroxysmal atrial fibrillation and was taken off his Xarelto about 4 months. He presented to the ER in A.fib with RVR and eventually converted back to sinus rhythm. He is back in A. fib with RVR this morning and is going to be transferred to IMU. Increases surgical risks. Management per primary service. (4) Pancytopenia: Code(s): D61.818 - Other pancytopenia Status: Acute Assessment and Plan: WBC count severely low with last chemotherapy treatment last Monday. Hem/Onc has been consulted. (5) Immunosuppression due to drug therapy: Code(s): D84.821 - Immunodeficiency due to drugs; Z79.899 - Other lobsterman (current) drug therapy Status: Acute (6) Lung cancer: Code(s): C34.90 - Malignant neoplasm of unspecified part of unspecified bronchus or lung Status: Acute (7) Chronic obstructive pulmonary disease: Code(s): J44.9 - Chronic obstructive pulmonary disease, unspecified Status: Acute (8) Obstructive sleep apnea on CPAP: Code(s): G47.33 - Obstructive sleep apnea (adult) (pediatric); Z99.89 - Dependence on other enabling machines and devices Status: Acute Plan I have discussed the patient's case and plan of care with Dr. Salcedo. 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 He has undergoing chemotherapy and radiation treatment at [facility] for the lung cancer. He had his last round of chemotherapy last Monday and was supposed to finish his last radiation treatment yesterday. He reports feeling constipated the few days prior to arriving at the ER. He tried taking Miralax but was unable to have a bowel movement. He then developed nausea and tried taking Compazine and Zofran. Monday, he began vomiting and was unable to get up off the bathroom floor. He reportedly felt light-headed and had his sons try to help him up off the floor. Since they were unable to get him up, they called EMS. He was brought into the ER on 12/24/22. With more questioning, he does endorse some cramping abdominal pain and difficulty lying on his right side because it was painful. He was not eating much over the few days prior to coming into the ER because of his nausea and could not tell if h
[2022-12-27] MEDS: dilTIAZem 100 MG/100 ML 100 MG/100 ML BAG IV CONT (12:42)
--- NOTE | 2022-12-27 13:09 | PM.IMPN ---
Progress Note: A&P Assessment and Plan (1) Pancytopenia: Code(s): D61.818 - Other pancytopenia Status: Acute (2) Cholecystitis: Code(s): K81.9 - Cholecystitis, unspecified Status: Acute (3) Atrial fibrillation with rapid ventricular response: Code(s): I48.91 - Unspecified atrial fibrillation Status: Acute Plan 67-year-old male patient with PMH of lung cancer and is seen by Oncology at [facility], last chemo 6 days ago? presented with poor appetite and esophageal carrasco, nausea, vomiting, diarrhea . The patient has a history of atrial fibrillation and is on sotalol Cardizem.? The patient has not been able to take his Cardizem due to the nausea vomiting.?? Abdominal pelvis CT was read as wall thickening of the gallbladder likely acute cholecystitis.? Sigmoid colitis.? The patient was started on Zosyn.? The surgery team has been consulted, The patient has been accepted to [facility] however there are no beds available at this time.? It was reported that he would be 2 or 3 days before the patient had a bed.? The patient stated if he is not accepted to [facility] he would prefer to go to [facility].? 1)Acute Cholecystitis+?Colitis: No Abdominal symptoms Seen and evaluated by Surgery Will c/w zosyn Cdiff negative Await GB USG Pain Control as needed 2)Afibb with RVR: Went into RVR this morning Moved to IMU Started on Cardizem drip c/w Sotalol Cardiology consult Received mag and potassium no Longer on AC 3)Chemotherapy related Pancytopenia: Await Oncology help Hold any AC Follow up blood culture 4)DVT ppx:SCD 5)Code:Full 6)Dispo:Await transfer to [place] Time Spent With Patient Time with patient: 15 - 25 minutes Subjective Date/time seen: 12/27/22 13:09 Interval history: patient went into afibb with RVR this morning C/w palpitations Received IV cardizedm, potassium and IV magnesium Review of Systems Review of Systems: Did not obtain due to acuity of situation Exam Const: General: no acute distress HENMT: Mouth: Yes moist mucous membranes Eyes: Sclera: sclerae normal Pupils: Equal, round and reactive pupils present Neck: Neck: supple Resp: Auscultation: clear to auscultation bilaterally Cardio: Rate: tachycardic Rhythm: abnormal rhythm GI: GI Palp: Yes Soft to palpation Auscultation: normal bowel sounds Skin: General skin exam: normal color Extrem: General: normal to inspection Psych: Mental Status: mental status grossly normal Objective Data Vital Signs Vital Signs: Vital Signs - 24 hr 12/26/22 13:15 12/26/22 13:30 12/26/22 13:45 Temperature Pulse Rate 88 78 81 Respiratory Rate 19 13 18 Blood Pressure Pulse Oximetry 100 100 100 Oxygen Delivery 12/26/22 14:03 12/26/22 14:15 12/26/22 14:30 Temperature Pulse Rate 85 82 Respiratory Rate 20 14 Blood Pressure Pulse Oximetry 99 100 100 Oxygen Delivery 12/26/22 14:45 12/26/22 15:00 12/26/22 15:15 Temperature Pulse Rate 78 80 86 Respiratory Rate 15 20 Blood Pressure Pulse Oximetry 100 100 99 Oxygen Delivery 12/26/22 15:30 12/26/22 15:45 12/26/22 16:00 Temperature Pulse Rate 79 78 83 Respiratory Rate 16 17 13 Blood Pressure Pulse Oximetry 100 100 100 Oxygen Delivery 12/26/22 16:15 12/26/22 17:16 12/26/22 20:35 Temperature 97.8 F Pulse Rate 83 78 88 Respiratory Rate 18 16 Blood Pressure 130/74 Pulse Oximetry 100 99 Oxygen Delivery 12/26/22 20:00 12/26/22 20:00 12/26/22 22:00 Temperature 98.7 F Pulse Rate 85 88 76 Respiratory Rate 16 16 Blood Pressure 127/70 Pulse Oximetry 99 99 Oxygen Delivery Room Air 12/27/22 00:00 12/27/22 02:29 12/27/22 04:00 Temperature Pulse Rate 79 70 Respiratory Rate Blood Pressure Pulse Oximetry Oxygen Delivery BiPAP 12/27/22 06:00 12/27/22 08:15 12/27/22 09:29 Temperature 98.6 F Pulse Rate 79 80 Respiratory Rate 20 B
[2022-12-27] MEDS: PERFLUTREN LIPID MICROSPHERES 1.5 ML VIAL DILUTED TO 10 ML TOTAL VOLUME IV PUSH (14:13)
--- NOTE | 2022-12-27 14:14 | IVDEFINITY ---
Prior to administration of IV Definity the patient was educated on the risks and benefits of the imaging enhancing agent including potential adverse side effects. The patient verbalized understanding. Allergies were verified. No exclusion criteria were identified and at least one of the following inclusion criteria were met: 1) physician request, 2) patient technically difficult to image (per the [place] [employer] Echocardi[employer] guidelines of two or more segments not discernable within the apical view), or 3) questionable left ventricular function. ?
--- NOTE | 2022-12-27 16:28 | ECG_ITS ---
Measurements Intervals [place] Rate: 64 P: 47 [place]: 144 QRS: 28 QRSD: 86 T: 61 QT: 434 QTc: 450 Interpretive Statements SINUS RHYTHM NORMAL ECG COMPARED TO ECG 12/27/2022 10:33:50 SINUS RHYTHM NOW PRESENT Electronically Signed On 12-28-2022 13:41:02 CDT by Ethan Cruz M.D.
--- NOTE | 2022-12-27 17:47 | PDONCCN ---
HPI - Date of Consult Date/Time: 12/27/22 17:47 Requesting Physician: Martha Baron MD Primary Care Provider: Sonny Guadalupe MD - Consult Narrative Reason for consult: Pancytopenia Narrative: Sajan Ca is a 67 year old male with stage III non-small cell lung cancer being treated with radiation therapy and weekly chemotherapy and received weekly cycle 6/6 of chemotherapy about [address] Myers at [facility]. He came into the hospital with nausea vomiting and diarrhea along with generalized weakness. He was having some right upper quadrant abdominal pain. Labs showed pancytopenia. CT scan showed thickening of the gallbladder likely cholecystitis and sigmoid colitis. He was started on Zosyn. He is already feeling slightly better. Labs showed WBC count of 0.6 with ANC of 400. Hemoglobin 7[place]9 [place] [address]. Review of Systems - Review of Systems All systems reviewed & are unremarkable except as noted in HPI and bel - Neurologic Reports system reviewed and no additional complaints, except as documented, Reports hearing normal, Reports weakness (generalized weakness in the past 2 days after having diarrhea/low intake), Denies abnormal gait, Denies headache(s), Denies focal weakness, Denies numbness, Denies tingling PMFSH Medical History: Medical History (Last Updated 12/27/22 @ 13:47 by MICHA Campos) Chronic obstructive pulmonary disease Coronary artery disease Family history of colon cancer History of colon polyps History of tobacco abuse Hyperlipidemia Hypertension Obstructive sleep apnea on CPAP Paroxysmal atrial fibrillation Previously on Xarelto which was stopped in August 2022 due to hemoptysis 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 Surgical History: Surgical History (Last Reviewed 12/27/22 @ 13:47 by MICHA Campos) History of appendectomy Open appendectomy in the 1970's History of colonoscopy with polypectomy Onset Date: 07/2021 History of coronary artery bypass graft x 2 Onset Date: 2011 History of esophagogastroduodenoscopy (EGD) History of right coronary artery stent placement x2 in 2019 S/P bronchoscopy Family History: Family History (Last Reviewed 12/27/22 @ 13:47 by MICHA Campos) Father Heart disease Hypertension Cerebrovascular accident Mother Carcinoma of colon Sibling Family history of type 2 diabetes mellitus Hypertension Heart disease Pacemaker - Social History Social History: Social History (Last Reviewed 12/27/22 @ 13:47 by MICHA Campos) Alcohol Use: Alcohol intake: current Drinks per week: 1 Alcohol use details: Patient drinks one 6-pack of beer per week. Substance Use: Substance use: current Substance use type: painkillers Others: Spiritual care concerns: No Agree to blood products: Yes Living Arrangements: Living arrangements: with family Oppucation/Education: Occupation/Education: occupation Smoking Status: Smoking status: Former smoker Tobacco type: cigarettes Second hand tobacco smoke exposure: No Smoking Pack-years: Smoking packs per day: 1 Smoking cigarettes per day: 20.0 Years smoked: 30 Smoking pack-years: 30.00 Comments: Additional smoking assessment comments: quit smoking 16 years ago Social Determinants of Health: Has the Lack of Transportation Kept You From Medical Appointments or From Getting Medications?: No Within the Past 12 Months, Were You Worried Whether Your Food Would Run Out Before You Got Money to Buy More?: Never True What is Your Housing Situation Today?: Decline to Answer Are You Worried That in the Next 2 Months, You May Not Have Your Own Housing to Live In?: Decline to Answer Do You Have Trouble Paying Your Heating Or Electricity Bill?: Decline to Answer Do You Have Trouble Paying For Me
[2022-12-27] MEDS: CENTRAL LINE FLUSH 10 ML IV PUSH (20:28)
[2022-12-27] MEDS: lisinopriL 10 MG TABLET PO (20:30)
[2022-12-27 20:53] LABS: Iron 45 ug/dL (49-181)
[2022-12-27 21:04] LABS: Percent Iron Saturation 20 % (20-50)
[2022-12-27 22:02] LABS: Folic Acid 17.8 ng/mL (2.76->20)
[2022-12-28] VITALS (8 sets, daily range): BP systolic 108–110; BP diastolic 62–65; PULSE 57–75; RESP 16–18; TEMP 36.4–36.6; O2SAT 93–100
[2022-12-28] MEDS: PIPERACILLN/TAZ 3.375GM/NS50ML 3.375 GM/50 ML BAG IVPB ×3 (00:25→11:58)
[2022-12-28 04:42] LABS: Basophils Percent Auto 1.1 % (0.2-1.2); Hematocrit 21.7 % (42.0-52.0); Hemoglobin 7.4 g/dL (14.0-18.0); Immature Granulocyte Absolute 0.01 K/mm3 (0.00-0.031); Immature Granulocyte Percent A 1.1 % (0-0.5); Immature Platelet Fraction Pct 3.2 % (0.9-11.2); Lymphocytes Absolute Auto 0.25 K/mm3 (0.9-3.2); Lymphocytes Percent Auto 28.7 % (18.3-44.2); Mean Corpuscular HGB Conc 34.1 g/dl (32-36); Mean Corpuscular Volume 87.9 fl (80-100); Mean Platelet Volume 9.5 fl (7.4-10.4); Monocytes Absolute Auto 0.1 K/mm3 (0.1-0.6); Monocytes Percent Auto 11.5 % (2.6-8.5); Neutrophils Absolute Auto 0.5 K/mm3 (1.3-6.7); Neutrophils Percent Auto 57.6 % (45.5-73.1); Nucleated Red Blood Cells Perc 2.3 % (0.0-0.2); Platelet Count Result 92 k/mm3 (150-375); Red Blood Count 2.47 M/mm3 (4.6-6.20); Red Cell Distribution Width 15.2 % (11.5-14.5)
[2022-12-28 04:45] LABS: White Blood Count 0.9 K/mm3 (4.5-10.0)
[2022-12-28 04:46] LABS: Anisocytosis 1+ (NORMAL); Platelet Estimate Decreased (Adequate); Poikilocytosis 1+ (NORMAL); Schistocytes None Seen (NORMAL)
[2022-12-28 04:53] LABS: Alanine Aminotransferase 15 U/L (6-50); Albumin Level 3.2 g/dL (3.5-5.1); Alkaline Phosphatase 39 U/L (38-126); Anion Gap 3 mmol/L (8-16); Aspartate Amino Transferase 21 U/L (17-59); Bilirubin,Total 0.9 mg/dL (0.2-1.3); Blood Urea Nitrogen 9 mg/dL (9-20); Calcium 8.3 mg/dL (8.4-10.2); Carbon Dioxide 26 mmol/L (22-30); Chloride 108 mmol/L (98-107); Estimated CRCL calculation 74 ml/min; Estimated Glomerular Filt Rate > 60; Glucose 136 mg/dL (65-110); INR 1.2; Magnesium 2.1 mg/dL (1.6-2.3); Potassium 3.4 mmol/L (3.4-5.0); Sodium 137 mmol/L (137-145)
[2022-12-28 04:54] LABS: Partial Thromboplastin Time 35.2 SECONDS (22.3-36.8)
[2022-12-28] MEDS: CENTRAL LINE FLUSH 10 ML IV PUSH ×2 (06:06→11:59)
[2022-12-28] MEDS: FAMOTIDINE 20 MG/2 ML VIAL IV PUSH (06:06)
[2022-12-28] MEDS: FLUTICASONE/UMECLIDIN/VILANTER 100-62.5-25 MCG ELLIPTA 1 PUFF INHALATION (07:30)
[2022-12-28] MEDS: FILGRASTIM-SNDZ 300 MCG/0.5 ML SYRINGE SUB-Q (08:07)
[2022-12-28] MEDS: SOTALOL HCL 80 MG TABLET PO (08:08)
--- NOTE | 2022-12-28 10:09 | PM.PNGS ---
Progress Note: A&P Assessment and Plan (1) Cholecystitis: Code(s): K81.9 - Cholecystitis, unspecified Status: Acute Assessment and Plan: US showed no gallstones with mild GB wall thickening, but no other findings to suggest acute cholecystitis. He is no longer having any abdominal pain and his exam is benign. Okay from a surgical standpoint to discharge the patient when okay with other services. May transition to oral antibiotics on discharge. Follow-up only as needed. Continue low fat diet. (2) Hyperbilirubinemia: Code(s): E80.6 - Other disorders of bilirubin metabolism Status: Acute Assessment and Plan: LFTs normalized (3) Atrial fibrillation with rapid ventricular response: Code(s): I48.91 - Unspecified atrial fibrillation Status: Acute (4) Pancytopenia: Code(s): D61.818 - Other pancytopenia Status: Acute (5) Immunosuppression due to drug therapy: Code(s): D84.821 - Immunodeficiency due to drugs; Z79.899 - Other middle or intermediate school principal (current) drug therapy Status: Acute (6) Lung cancer: Code(s): C34.90 - Malignant neoplasm of unspecified part of unspecified bronchus or lung Status: Acute Plan I have discussed the patient's case and plan of care with Dr. Salcedo. Subjective Subjective Date/Time Seen: 12/28/22 10:09 Patient reports: no new complaints, feels better, flatus, bowel movement and afebrile Interval history: Patient feeling better today. Reportedly improves daily. Today, he is not having any abdominal pain or soreness. He is tolerating a low fat diet. No nausea or vomiting. He had a normal BM this morning. Currently in sinus rhythm on the front desk monitor. Review of Systems Review of Systems: ROS unchanged Exam Const: General: comfortable and no acute distress Orientation/consciousness: patient oriented x3 GI: Inspection: non-distended GI Palp: Yes Soft to palpation, No Tenderness to palpation present (GI), No Guarding due to palpation present (GI) and No Rebound tenderness present Auscultation: normal bowel sounds Objective Data Vital Signs Vital Signs: Vital Signs - 24 hr 12/27/22 10:17 12/27/22 12:25 12/27/22 12:42 Temperature 97.6 F Pulse Rate 150 H 146 H 102 H Respiratory Rate 16 Blood Pressure 105/44 L 105/44 L Pulse Oximetry 96 Oxygen Delivery 12/27/22 12:15 12/27/22 16:00 12/27/22 16:00 Temperature 98 F Pulse Rate 65 Respiratory Rate 14 Blood Pressure 108/58 L Pulse Oximetry 98 Oxygen Delivery Room Air Room Air 12/27/22 12:25 12/27/22 16:00 12/27/22 14:00 Temperature Pulse Rate 167 H 72 68 Respiratory Rate Blood Pressure Pulse Oximetry Oxygen Delivery 12/27/22 20:00 12/27/22 20:30 12/27/22 20:00 Temperature 98.0 F Pulse Rate 70 69 71 Respiratory Rate 20 Blood Pressure 115/61 Pulse Oximetry 99 Oxygen Delivery 12/27/22 20:00 12/27/22 20:30 12/27/22 23:57 Temperature 97.8 F Pulse Rate 69 66 Respiratory Rate 20 Blood Pressure 104/56 L Pulse Oximetry 97 98 Oxygen Delivery CPAP BiPAP 12/28/22 00:00 12/28/22 00:00 12/28/22 02:10 Temperature Pulse Rate 66 66 Respiratory Rate Blood Pressure Pulse Oximetry 98 Oxygen Delivery CPAP BiPAP 12/28/22 04:00 12/28/22 04:00 12/28/22 04:00 Temperature 97.8 F Pulse Rate 57 L 58 L Respiratory Rate 18 Blood Pressure 110/62 Pulse Oximetry 97 Oxygen Delivery CPAP 12/28/22 07:30 12/28/22 07:30 12/28/22 08:08 Temperature Pulse Rate 75 75 68 Respiratory Rate 18 18 Blood Pressure Pulse Oximetry 93 Oxygen Delivery Room Air 12/28/22 08:00 Temperature 97.5 F L Pulse Rate 67 Respiratory Rate 16 Blood Pressure 108/65 Pulse Oximetry 100 Oxygen Delivery Intake/Output Intake/Output: Intake & Output 12/25/22 12/26/22 12/27/22 12/28/22 23:59 23:59 23:59 23:59 Intake Total 2300 2320 800 690 Output Total 600 750 [place]
--- NOTE | 2022-12-28 12:31 | PM.CNCAR ---
Assessment and Plan Assessment and plan (1) Atrial fibrillation with rapid ventricular response: Code(s): I48.91 - Unspecified atrial fibrillation Status: Acute Assessment and Plan: History of atrial fibrillation. EKG yesterday shows more organized flutter but regardless it is self-limiting arrhythmia and he is otherwise feeling fine. He is back in sinus rhythm and feels good at this point. Overall I recommend no changes will be made. Continue sotalol 80 mg p.o. Q 12 hours. No further inpatient cardiac workup needed. Follow Dr. Huddleston (2) Lung cancer: Code(s): C34.90 - Malignant neoplasm of unspecified part of unspecified bronchus or lung Status: Acute Assessment and Plan: Treatment of [facility] (3) Hypokalemia: Code(s): E87.6 - Hypokalemia Status: Acute Assessment and Plan: Mildly low. Will replace with 40 mEq p.o. of potassium chloride x1 (4) Coronary artery disease: Code(s): I25.10 - Atherosclerotic heart disease of [place] coronary artery without angina pectoris Status: Acute Assessment and Plan: Asymptomatic History of Present Illness History of Present Illness Consult date/time: 12/28/22 12:31 Requesting physician: Mayte Pugh MD Consult reason: atrial fibrillation Reason For Visit: Neutropenia/Acute Cholecystitis/Atrial Fibrillatio Narrative: Date of service 12/28/2022 Reason for consultation: Atrial fibrillation Requesting provider: Dr. Pugh History patient is a 67-year-old who has history of lung cancer and seen at [facility] and is undergoing chemo and radiation. He has been having poor appetite, nausea vomiting any came in because of a combination of nausea vomiting weakness abdominal pain and constipation. He does have a history of atrial fibrillation on sotalol but not on anticoagulation because of hemoptysis and ongoing chemotherapy. He follows with Dr. Tejada in the office and also has a history of coronary disease, CABG and stenting. Came to the hospital again for the of the above reasons of abdominal pain, nausea and constipation. In the process of workup and while in the hospital he has gone in and out of atrial fibrillation/flutter. In episode in the ER as well as an episode yesterday. He does have occasional palpitations which lasted about an hour so at a time and occurs about once every couple of months. In general though does palpitations have since resolved and are usually self-limited. He currently feels much better and denies any chest pain, shortness of breath, syncope, presyncope, paroxysmal nocturnal dyspnea orthopnea, edema palpitations Review of Systems Review of Systems: All systems reviewed & are unremarkable except as noted in HPI and below Constitutional: Constitutional: Denies body ache(s) Eyes: Eyes: Denies blurry vision ENT: Reports Normal hearing present Cardiovascular: Cardiovascular: Reports chest pain and Denies diaphoresis Respiratory: Respiratory: Denies chest congestion and Reports hemoptysis Gastrointestinal: Gastrointestinal: Reports abdominal pain Genitourinary: Genitourinary: Denies hematuria Musculoskeletal: Musculoskeletal: Denies back pain Integumentary/Breasts: Skin/Breast: Denies dry skin Neurologic: Denies Abnormal speech present Psychiatric: Psychiatric: Denies anxiety Endocrine: Endocrine: Denies excessive sweating Hematologic/Lymphatic: Hematologic/Lymphatic: Denies easy bleeding Allergic/Immunologic: Allergic/Immunologic: Denies GI upset with certain foods PMFSH Past Medical History Medical History Chronic obstructive pulmonary disease Coronary artery disease Family history of colon cancer History of colon polyps History of tobacco abuse Hyperlipidemia Hypertension Obstructive sleep apnea on CPAP Paroxysmal atrial fibrillation Previously on Xarelto which was stopped in August 2022 due to hemoptys
--- NOTE | 2022-12-28 12:33 | PM.DS ---
DS: Admitting Diagnosis Discharge Date December 28, 2022 Admitting Diagnosis Neutropenia, acute cholecystitis. DS: Discharge Diagnosis Discharge Diagnosis (1) Pancytopenia: Code(s): D61.818 - Other pancytopenia Status: Acute (2) Cholecystitis: Code(s): K81.9 - Cholecystitis, unspecified Status: Acute (3) Atrial fibrillation with rapid ventricular response: Code(s): I48.91 - Unspecified atrial fibrillation Status: Acute Plan 67-year-old male patient with PMH of lung cancer and is seen by Oncology at [facility], last chemo 6 days ago? presented with poor appetite and esophageal carrasco, nausea, vomiting, diarrhea . The patient has a history of atrial fibrillation and is on sotalol Cardizem.? The patient has not been able to take his Cardizem due to the nausea vomiting.?? Abdominal pelvis CT was read as wall thickening of the gallbladder likely acute cholecystitis.? Sigmoid colitis.? The patient was started on Zosyn.? The surgery team has been consulted, The patient has been accepted to [facility] however there are no beds available at this time.? It was reported that he would be 2 or 3 days before the patient had a bed.? The patient stated if he is not accepted to [facility] he would prefer to go to [facility].? 1)Acute Cholecystitis+?Colitis: No Abdominal symptoms Seen and evaluated by Surgery Will c/w zosyn Cdiff negative Await GB USG Pain Control as needed 2)Afibb with RVR: Went into RVR this morning Moved to IMU Started on Cardizem drip c/w Sotalol Cardiology consult Received mag and potassium no Longer on AC 3)Chemotherapy related Pancytopenia: Await Oncology help Hold any AC Follow up blood culture 4)DVT ppx:SCD 5)Code:Full 6)Dispo:Await transfer to [place] DS: Summary Hospital Course Hospital Course: Patient was admitted for neutropenia and continues to get chemotherapy and cancer treatments a close. Nonetheless he was felt to have possibly cholecystitis however surgery does not feel a surgical intervention is needed at this time. Will continue antibiotics for 5 more days. He can follow-up with surgery as an outpatient. He is tolerating a diet. Time Spent with Patient Time attestation: Total time spent providing and/or coordinating discharge services: Exam Const: General: cooperative, healthy appearing, comfortable, no acute distress, well developed, alert, awake, Physically active, average body habitus and well nourished Nutritional Appearance: average body habitus and well nourished Orientation/consciousness: oriented to person, oriented to place, oriented to time and patient oriented x3 Limitations: no limitations HENMT: Head: normal to inspection, No palpable skull fracture present, normocephalic and atraumatic Ears: hearing grossly normal bilaterally and external ears normal Face/Nose/Sinus: Normal external nose present and Normal nares present Mouth: Yes moist mucous membranes Eyes: General: appearance normal, both eyes and all related structures Alignment and Position: alignment normal Periorbital: periorbital findings normal Eyelids: eyelids normal Sclera: sclerae normal Pupils: Equal, round and reactive pupils present EOM: EOMs intact bilaterally Neck: Neck: normal visual inspection, full ROM, no lymphadenopathy, trachea midline and supple Chest: Chest palpation & inspection: normal inspection of the chest Resp: Effort & Inspection: normal respiratory effort Auscultation: clear to auscultation bilaterally and wheezes expiratory wheezes and lower bilaterally Cardio: Palpation: normal PMI Rate: regular rate and tachycardic Rhythm: regular rhythm and abnormal rhythm Heart sounds: S1 normal heart sound present and S2 normal heart sound present Peripheral pulses: Peripheral pulses 2+ throughout GI: Inspection: normal to inspection Auscultation: normal bowel sounds Rectal Exam: deferred : General: Yes no CVA tenderness Back/Spine/
[2022-12-28] MEDS: POTASSIUM CHLORIDE 20 MEQ TABLET 40 MEQ PO (12:55)
== END 2022-12-28 13:47 | disposition home or self-care (01) | DRG 444 ==
LOC: ANHED 12-26 14:25 → ANH3MED 12-26 15:56 → ANHIMU 12-27 12:24
PROVIDERS: Emergency Medicine; Internal Medicine; Internal Medicine Hematology & Oncology; Nurse Practitioner; Nurse Practitioner Family; Admitting Provider Family Medicine; Emergency Provider Emergency Medicine; PCP Family Medicine; Visit Provider Chiropractor
DX: K81.0 Acute cholecystitis (principal); D61.810 Antineoplastic chemotherapy induced pancytopenia; C34.90 Malignant neoplasm of unspecified part of unspecified bronchus or lung; D84.821 Immunodeficiency due to drugs; K52.9 Noninfective gastroenteritis and colitis, unspecified; I25.10 Atherosclerotic heart disease of native coronary artery without angina pectoris; E87.6 Hypokalemia; E78.5 Hyperlipidemia, unspecified; E80.6 Other disorders of bilirubin metabolism; G47.33 Obstructive sleep apnea (adult) (pediatric); I48.91 Unspecified atrial fibrillation; I48.0 Paroxysmal atrial fibrillation; I10 Essential (primary) hypertension; J44.9 Chronic obstructive pulmonary disease, unspecified; K21.9 Gastro-esophageal reflux disease without esophagitis; Z95.1 Presence of aortocoronary bypass graft; Z95.5 Presence of coronary angioplasty implant and graft; Z90.49 Acquired absence of other specified parts of digestive tract; Z87.891 Personal history of nicotine dependence; Z88.0 Allergy status to penicillin; Z92.3 Personal history of irradiation; Z92.21 Personal history of antineoplastic chemotherapy; Z99.89 Dependence on other enabling machines and devices
CPT/HCPCS: 36415; 74177; 76705; 80053; 81003; 82274; 82607; 82728; 82746; 83540; 83550; 83605; 83690; 83735; 85025; 85055; 85610; 85730; 87040; 87045; 87269; 87272; 87427; 87493; 89055; 93005; 94640; 94660; 96361; 96365; 96367; 96374; 96375; 96376; 99285; A9270; C8929; G0378; J0131; J1200; J1642; J2405; J2543; J2765; J3475; J7030; Q5101; Q9957; Q9967

== ENCOUNTER 2023-11-06 09:50 | Emergency (ER) | payer OTHER, SELFPAY ==
--- NOTE | ~2023-11-06 | XR_ITS ---
XR chest 2V DATE: 11/06/2023 10:15 INDICATION: Shortness of breath and cough for 3 weeks. History of COPD, lung cancer TECHNIQUE: 2 view chest COMPARISON: 09/11/2022 CT chest 09/11/2022 portable AP chest FINDINGS: There is asymmetric prominence and irregularity of the left hilum; consider CT thorax with IV contrast material or PET/CT imaging to evaluate for possible residual or recurrent left lung malig moose. There is mild infiltrate, atelectasis and/or possible postoperative radiation change of the left midl lillian. Otherwise no pulmonary infiltrate or consolidation, pleural effusion or pulmonary vascular conge stion or pneumothorax is noted Status post sternotomy an coronary artery bypass graft surgery. Right Port-A-Cath catheter, tip situated near superior cavoatrial junction. Normal heart size. Aortic arch calcification. There is volume loss in the left lung compared to the right. There is hyperinflation consistent with history of COPD. Osteopenia. IMPRESSION: Left hilar irregularity and prominence; cannot exclude residual or recurrent malignancy. Further evaluation is needed, consider CT thorax with IV contrast material or PET/CT imaging Mild infiltrate, atelectasis and/or fibrotic change, left midlung COPD Right Port-A-Cath catheter tip near superior cavoatrial junction Status post CABG Osteopenia Reviewed, dictated and finalized at location B. COT WASHER
[2023-11-06 09:56] VITALS: BP 127/79; PULSE 70; RESP 26; TEMP 36.8; O2SAT 98
--- NOTE | 2023-11-06 10:34 | ED.URI ---
HPI - URI/Sore Throat General Chief Complaint: Upper Respiratory Infection Stated Complaint: Cough;Short Of Breath Time Seen by Provider: 11/06/23 10:00 Source: patient Mode of arrival: ambulatory Limitations: no limitations History of Present Illness HPI Narrative: Sajan is a 68-year-old male patient presenting to the clinic today with complaints cough and shortness of breath times 3 weeks. He reports that he is coughing up some white and yellow phlegm. Denies any known fever or chills. Does have history of lung cancer, COPD, and former smoker. States he feels like also he just can not catch his breath. Reports that the symptoms did improve however they got worse again over the last few days. MD elicited complaint: cough and other (shortness of breath) Related Data Home Medications Medication Instructions Recorded Confirmed lisinopril 10 mg tablet 10 mg PO HS 11/19/19 11/06/23 diltiazem HCl 120 mg 120 mg PO DAILY 11/04/22 11/06/23 capsule,extended release 24 hr, controlled atorvastatin 20 mg tablet 20 mg PO HS 12/26/22 11/06/23 pantoprazole 40 mg tablet,delayed 40 mg PO DAILY 12/26/22 11/06/23 release sotalol 120 mg tablet 80 mg PO Q12HR 12/26/22 11/06/23 budesonide 160 mcg-glycopyr 9 2 inh inhalation DAILY 11/06/23 11/06/23 mcg-formot 4.8 mcg/actuation HFA inhaler (Breztri Aerosphere) ondansetron HCl 8 mg tablet 8 mg PO Q12H PRN Nausea 11/06/23 11/06/23 prochlorperazine maleate 10 mg 10 mg PO DAILY PRN Nausea 11/06/23 11/06/23 tablet Allergies Allergy/AdvReac Type Severity Reaction Status Date / Time poison mehdi extract Allergy Intermediate Rash Verified 11/06/23 10:01 pollen extracts Allergy Intermediate rash Verified 11/06/23 10:01 Penicillins AdvReac Intermediate Diarrhea Verified 11/06/23 10:01 Review of Systems Review of Systems: Pertinent positives per HPI. Patient denies any fever, chills, rash, headache, visual changes, dizziness, chest pain, palpitations, nausea, vomiting, diarrhea, constipation, abdominal pain, or any urinary issues. 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 Surgical History Surgical History History of appendectomy Open appendectomy in the 1969's History of colonoscopy with polypectomy (07/2021) History of coronary artery bypass graft x 2 (2011) History of esophagogastroduodenoscopy (EGD) History of right coronary artery stent placement x2 in 2019 S/P bronchoscopy Family History Family History Father Heart disease Hypertension Cerebrovascular accident Mother Carcinoma of colon Sibling Family history of type 2 diabetes mellitus Hypertension Heart disease Pacemaker Social History Social History Social History: 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 He has 4 children. He lives with his . Surrogate medical decision maker: Brianna Lanny, spouse. Code status: Full code. Smoking packs per day: 1 Smoking cigarettes per day: 20.0 Years smoked: 30 Smoking pack-years: 30.00 Smoking status: Former smoker Tobacco type: cigarettes Second hand tobacco smoke exposure: No Additional smoking assessment comments: quit smoking 16 years ago Alcohol intake: current Drinks per week: 1 Alcohol use details: Patient drinks one 6-pack of beer per week. Substance use: current Substance use type: paink
== END 2023-11-06 10:54 | disposition home or self-care (01) ==
PROVIDERS: Emergency Provider Nurse Practitioner Family; PCP Family Medicine
DX: J44.1 Chronic obstructive pulmonary disease with (acute) exacerbation (principal); J22 Unspecified acute lower respiratory infection; I25.10 Atherosclerotic heart disease of native coronary artery without angina pectoris; E78.5 Hyperlipidemia, unspecified; I10 Essential (primary) hypertension; G47.33 Obstructive sleep apnea (adult) (pediatric); I48.0 Paroxysmal atrial fibrillation; Z87.891 Personal history of nicotine dependence
CPT/HCPCS: 71046; 99213; G0463

== ENCOUNTER 2023-11-23 12:42 | Emergency (ER) | payer OTHER, SELFPAY ==
[2023-11-23] VITALS (10 sets, daily range): BP systolic 113–138; BP diastolic 70–82; PULSE 95–133; RESP 16–26; TEMP 36.3–36.7; O2SAT 90–97
--- NOTE | ~2023-11-23 | XR_ITS ---
EXAMINATION: XR chest 1V portable INDICATION: Shortness of breath TECHNIQUE: Portable AP chest at 1517 hours COMPARISON: 11/06/2023, 09/11/2022 FINDINGS: A right internal jugular Port-A-Cath ends with its tip in the distal superior vena cava. Th ere is severe emphysema. The lungs are free of acute opacities. There is a chronic left perihilar mas s which appears to have decreased in density since the recent comparison examinations. The heart size is normal. Median sternotomy wires and mediastinal surgical clips are seen, likely from prior martinez ry artery bypass grafting. IMPRESSION: 1. Chronic left perihilar mass with apparent decrease in density. No acute findings. Reviewed, dictated and finalized at location F. TIAN BLIND CLEANER AND REPAIRER IMPRESSION: 1. Chronic left perihilar mass with apparent decrease in density. No acute find ings.
--- NOTE | ~2023-11-23 | CT_ITS ---
EXAMINATION: CTA chest PE protocol DATE: 11/23/2023 16:52 INDICATION: Tachycardia. TECHNIQUE: Computed tomography angiography (CTA) of the chest was performed with 100 mL Omnipaque-350 intravenous contrast timed to evaluate the pulmonary arteries. Coronal maximum intensity projection 3D-reconstructions were created by the technologist. Automated exposure control and iterative reconst ruction technique were employed. The dose-length product was 714.46 mGy-cm. COMPARISON: Chest CT 09/11/2022 FINDINGS: There is mild scarring at the lung apices. There is moderate emphysema. There are airspace opacities with volume loss and architectural distortion involving left perihilar region. There are ce ntrilobular nodules and left lower lobe, consistent with pneumonia. There is mucous plugging in left upper lobe and left lower lobe. There is mild atelectasis bilaterally. No pleural effusion. The heart size is normal. There are coronary artery calcifications. There are changes of coronary artery bypas s grafting. No pericardial effusion. There is no pulmonary embolus. There are cysts in the liver gurpreet uring up to 8 mm . There is moderate thoracic spondylosis. There is mild chronic anterior wedging of multiple vertebral bodies. IMPRESSION: 1. No pulmonary embolus. 2. Airspace opacities with volume loss and architectural distortion involving left perihilar region, consistent with primary bronchogenic carcinoma and chronic radiation pneumonitis. 3. Postobstructive pneumonia in left lower lobe. 4. Moderate emphysema. Reviewed, dictated and finalized at location A. TH AND WELLNESS DIRECTOR IMPRESSION: 1. No pulmonary embolus. 2. Airspace opacities with volume loss and architectural distortion involving l eft perihilar region, consistent with primary bronchogenic carcinoma and chroni c radiation pneumonitis. 3. Postobstructive pneumonia in left lower lobe. 4. Moderate emphysema.
--- NOTE | 2023-11-23 13:50 | ED.SOB ---
HPI - SOB/Dyspnea General Chief Complaint: Shortness of Breath/Dyspnea Stated Complaint: difficulty breathing Time Seen by Provider: 11/23/23 13:38 Source: patient and family (son in law present) Mode of arrival: ambulatory Limitations: no limitations History of Present Illness HPI Narrative: Patient presents with shortness of breath of several days duration. He states it feels like it has been going on 1 month but particularly worse yesterday and today. Hx of COPD/emphysema as well as lung cancer, recent radiation/chemo/immunotherapy (the latter every month until the end of January). Denies lower extremity edema. Denies sandoval chest pain, more of a general soreness after coughing. Denies having a chronic cough; this is new and had been productive of yellow mucus. No fevers. His was sick but better now. Tried nebulizer treatments. He has never required intubation for COPD exacerbation; tried bipap once but didn't tolerate it despite using CPAP QHS. Hx of CABG (double bypass 2011) and stent placement 2018. History of Afib. Not on any anticoagulation currently as he experienced hemoptysis. Oncologist at [facility], last seen last week. Related Data Home Medications Medication Instructions Recorded Confirmed lisinopril 10 mg tablet 10 mg PO HS 11/19/19 11/06/23 diltiazem HCl 120 mg 120 mg PO DAILY 11/04/22 11/06/23 capsule,extended release 24 hr, controlled atorvastatin 20 mg tablet 20 mg PO HS 12/26/22 11/06/23 pantoprazole 40 mg tablet,delayed 40 mg PO DAILY 12/26/22 11/06/23 release sotalol 120 mg tablet 80 mg PO Q12HR 12/26/22 11/06/23 budesonide 160 mcg-glycopyr 9 2 inh inhalation DAILY 11/06/23 11/06/23 mcg-formot 4.8 mcg/actuation HFA inhaler (Breztri Aerosphere) ondansetron HCl 8 mg tablet 8 mg PO Q12H PRN Nausea 11/06/23 11/06/23 prochlorperazine maleate 10 mg 10 mg PO DAILY PRN Nausea 11/06/23 11/06/23 tablet Allergies Allergy/AdvReac Type Severity Reaction Status Date / Time poison mehdi extract Allergy Intermediate Rash Verified 11/23/23 12:43 pollen extracts Allergy Intermediate rash Verified 11/23/23 12:43 Penicillins AdvReac Intermediate Diarrhea Verified 11/23/23 12:43 PMFSH Past Medical History Medical History Chronic obstructive pulmonary disease Coronary artery disease Family history of colon cancer History of colon polyps History of tobacco abuse Hyperlipidemia Hypertension Obstructive sleep apnea on CPAP Paroxysmal atrial fibrillation Previously on Xarelto which was stopped in August 2022 due to hemoptysis 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 Surgical History Surgical History History of appendectomy Open appendectomy in the 1969's History of colonoscopy with polypectomy (07/2021) History of coronary artery bypass graft x 2 (2011) History of esophagogastroduodenoscopy (EGD) History of right coronary artery stent placement x2 in 2018 S/P bronchoscopy Family History Family History Father Heart disease Hypertension Cerebrovascular accident Mother Carcinoma of colon Sibling Family history of type 2 diabetes mellitus Hypertension Heart disease Pacemaker Social History Social History (Updated 11/24/23 @ 02:54 by Cheyanne Roa MD) Social History: 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 He has 4 children. He lives with his . Surrogate medical decision maker: Brianna Ca, spouse. Code status: Full code. Smoking packs per day: 1 Smoking cigarettes per day: 20.0 Years smoked: 30 Smoking pack-years: 30.00 Smoking status: Former smoker Tobacco type: cigarettes Second hand tobacco smoke exposure: No Additional smoking assessment comments: quit smoking 16 years ago Alcohol intake: current
--- NOTE | 2023-11-23 14:09 | ECG_ITS ---
Measurements Intervals [place] Rate: 135 P: [place]: 0 QRS: 71 QRSD: 85 T: 101 QT: 228 QTc: 342 Interpretive Statements ATRIAL FIBRILLATION WITH RAPID VENTRICULAR RESPONSE NONSPECIFIC ST & T-WAVE ABNORMALITY ABNORMAL RHYTHM ECG COMPARED TO ECG 12/27/2022 16:36:28 ATRIAL FIBRILLATION NOW PRESENT Electronically Signed On 11-23-2023 15:52:12 OPTICAL WORKER by Rachna Eastman M.D.
[2023-11-23] MEDS: IPRATROPIUM 0.5 MG/ALBUTEROL SULFATE 2.5 MG AMPUL.NEB 3 ML INHALATION ×3 (14:23→14:25)
[2023-11-23] MEDS: ALBUTEROL SULFATE NEB 2.5 MG/3 ML INH INHALATION ×3 (14:24)
[2023-11-23] MEDS: predniSONE 20 MG TABLET 60 MG PO (14:26)
[2023-11-23] MEDS: AZITHROMYCIN 250 MG TABLET 500 MG PO (14:26)
[2023-11-23 14:36] LABS: Alveolar/Arterial O2 Gradient 35.2 mmHg; Base Excess ABG -0.9 mEq/l (+/-2.0); Fractional Inspired Oxygen 21 %; HCO3 ABG 22.7 mEq/l (22.0-26.0); Oxygen Content ABG 20.8 %vol (16.0-22.0); Oxygen Saturation ABG 95.1 % (95.0-100.0); Oxyhemoglobin 93.2 % THb (90.0-100.0); PO2 ABG 72.6 mmHg (80.0-100.0); PO2 FiO2 Ratio Arterial Blood 3.46 %; Total Hemoglobin 15.9 g/dL (12.0-18.0)
[2023-11-23 14:37] LABS: Modified Allen's Test Pass; Site Drawn RIGHT RADIAL
[2023-11-23] MEDS: dilTIAZem HCl INJ 25 MG/5 ML VIAL IV PUSH (14:50)
[2023-11-23 14:53] LABS: Basophils Percent Auto 0.2 % (0.2-1.2); Eosinophils Percent Auto 0.2 % (0-4.4); Hemoglobin 14.9 g/dL (14.0-18.0); Immature Granulocyte Absolute 0.08 K/mm3 (0.00-0.031); Immature Granulocyte Percent A 0.4 % (0-0.5); Lymphocytes Absolute Auto 0.44 K/mm3 (0.9-3.2); Lymphocytes Percent Auto 2.4 % (18.3-44.2); Mean Corpuscular HGB Conc 33.9 g/dl (32-36); Mean Corpuscular Hemoglobin 30.1 pg (26-34); Mean Corpuscular Volume 88.9 fl (80-100); Mean Platelet Volume 9.2 fl (7.4-10.4); Monocytes Absolute Auto 0.9 K/mm3 (0.1-0.6); Monocytes Percent Auto 5.1 % (2.6-8.5); Neutrophils Absolute Auto 16.6 K/mm3 (1.3-6.7); Neutrophils Percent Auto 91.7 % (45.5-73.1); Platelet Count Result 149 k/mm3 (150-375); Red Blood Count 4.95 M/mm3 (4.6-6.20); White Blood Count 18.1 K/mm3 (4.5-10.0)
[2023-11-23 15:05] LABS: Alanine Aminotransferase 21 U/L (6-50); Albumin Level 4.4 g/dL (3.5-5.1); Alkaline Phosphatase 60 U/L (38-126); Anion Gap 10 mmol/L (8-16); Aspartate Amino Transferase 21 U/L (17-59); Blood Urea Nitrogen 22 mg/dL (9-20); Calcium 9.9 mg/dL (8.4-10.2); Carbon Dioxide 21 mmol/L (22-30); Chloride 102 mmol/L (98-107); Estimated CRCL calculation 75 ml/min; Estimated Glomerular Filt Rate > 60; Glucose 149 mg/dL (65-110); INR 1.1; Magnesium 2.3 mg/dL (1.6-2.3); Partial Thromboplastin Time 34.2 SECONDS (22.3-36.8); Prothrombin Time 14.1 Seconds (11.1-14.7); Sodium 133 mmol/L (137-145)
[2023-11-23 15:15] LABS: Troponin I < 0.012 ng/mL (0.000-0.034)
[2023-11-23 15:17] LABS: D Dimer 0.84 ug/mL (<0.48)
[2023-11-23 15:26] LABS: Influenza A QL RT-PCR Negative (Negative); Influenza B QL RT-PCR Negative (Negative); RSV RNA, RT-PCR Negative (Negative); SARS-CoV-2 RNA PCR Negative (Negative)
--- NOTE | 2023-11-23 18:07 | PC.NURSE ---
in room speaking with pt and he had a coughing fit after that resolved AFIB noted on the monitor
== END 2023-11-23 18:09 | disposition home or self-care (01) ==
PROVIDERS: Emergency Provider Student in an Organized Health Care Education/Training Program; PCP Family Medicine
DX: J43.9 Emphysema, unspecified (principal); J44.1 Chronic obstructive pulmonary disease with (acute) exacerbation; Z20.822 Contact with and (suspected) exposure to COVID-19; C34.90 Malignant neoplasm of unspecified part of unspecified bronchus or lung; I25.10 Atherosclerotic heart disease of native coronary artery without angina pectoris; I48.0 Paroxysmal atrial fibrillation; E78.5 Hyperlipidemia, unspecified; G47.33 Obstructive sleep apnea (adult) (pediatric); Z92.3 Personal history of irradiation; Z92.21 Personal history of antineoplastic chemotherapy; Z95.1 Presence of aortocoronary bypass graft; Z86.010 Personal history of colon polyps; Z87.891 Personal history of nicotine dependence; R94.31 Abnormal electrocardiogram [ECG] [EKG]
CPT/HCPCS: 36415; 36600; 71045; 71275; 80053; 82805; 83735; 84484; 85025; 85380; 85610; 85730; 87637; 93005; 94640; 96374; 99284; A9270; J7512; Q9967

== ENCOUNTER 2025-06-11 02:29 | Day surgery (SDC) | payer OTHER, SELFPAY ==
[2025-05-29 10:33] VITALS: BMI 31.6
--- NOTE | 2025-05-29 11:06 | PC.NURSE ---
Pt states currently being treated for an upper respiratory infection after seeing Shirley Tucker on 05/27 with respiratory symptoms and fatigue. Pt believes he will be finished with steroid and abx by time of procedure. Per PCP office note, pt encouraged to see e commerce manager. Pt has an appointment at the end of this month with Dr. Huddleston. Clearance forms sent to Shirley Tucker NP and Dr. Huddleston, cardiology.
--- OUTSIDE RECORDS SUMMARY | 2025-06-11 02:32 | XMS_ITS | Clinical Summary ---
Author Organization [facility] [address] Address [address] [place] [address] Care Team Providers Care Voice Network Administrator Name Role Phone Sierra Mercado MD Unavailable [phone] Marquise Rene MD Unavailable [phone] Theron Myers MD PhD Unavailable Shirley Tucker NP Primary Care Provider [phone] Nael Ricardo MD Unavailable [phone] Allergies Active Allergy Reactions Criticality Noted Date Comments Amoxicillin-Pot Clavulanate Diarrhea Low 01/24/2023 Sulfamethoxazole-Trimet hoprim Diarrhea Low 01/24/2023 Paclitaxel Shortness of breath,Muscle pain High 11/15/2022 Lower Back Pain Penicillins Diarrhea Low Medications albuterol HFA (PROVENTIL HFA,VENTOLIN HFA,PROAIR HFA) 90 mcg/actuation inhaler 04/29/20 21 Active Breztri Aerosphere 160-9-4.8 mcg/actuation HFA aerosol inhaler Inhale 2 puffs 2 (two) times a day 12/10/19 22 Active prochlorperazine (Compazine) 10 mg tabletIndication s:Primary cancer of left upper lobe of lung (HCC) Take 1 tablet (10 mg total) by mouth every 6 (six) hours as needed for nausea or vomiting Use first for nausea 30 tablet 3 11/07/19 23 Active Additional Information Patient not taking.Reported on 03/25/2025 ondansetron (ZOFRAN) 8 mg tabletIndication s:Primary cancer of left upper lobe of lung (HCC) Take 1 tablet (8 mg total) by mouth every 8 (eight) hours as needed for nausea or vomiting Use if prochlorperazine does not stop nausea 24 tablet 3 11/07/19 23 Active Additional Information Patient not taking.Reported on 03/25/2025 ipratropium (ATROVENT) 0.02 % nebulizer solution 11/27/19 24 Active sotaloL (BETAPACE) 80 mg tablet Take 1 tablet (80 mg total) by mouth 2 (two) times a day 180 tablet 2 11/22/19 25 Active atorvastatin (LIPITOR) 20 mg tablet TAKE 1 TABLET BY MOUTH DAILY 90 tablet 1 11/26/19 25 Active lisinopriL (PRINIVIL,ZESTRI L) 10 mg tabletIndication s:Coronary artery disease involving [place] coronary artery of [place] heart without angina pectoris TAKE 1 TABLET BY MOUTH DAILY 90 tablet 2 11/30/19 25 Active DILT-XR 120 mg 24 hr capsuleIndicatio ns:Paroxysmal atrial fibrillation (HCC) TAKE 1 CAPSULE(120 MG) BY MOUTH DAILY 90 capsule 03/31/20 25 Active Active Problems Problem Noted Date Diagnosed Date Personal history of radiation therapy 01/26/2023 Encounter for management of implanted device 03/2023 Primary cancer of left upper lobe of lung 2022 Cancer Staging:Clinical stage from 10/26/2022:Stage IIIC(cT4, cN3, cM0) - Signed by Nael Ricardo MD on 10/26/2022 History of coronary artery stent placement 03/07 Paroxysmal atrial fibrillation 10/04/2017 Coronary artery disease invo lving [place] coronary artery of [place] heart without angina pectoris 09/05/2017 Hx of CABG 09/05/2017 Atherosclerosis of coronary artery 10/31/2012 Encounters Date Type Department Care Team Description 03/25/2025 9:30 AM CDT Office Visit [facility] [address] [place] [address] [address] [place] [address] Theron Myers MD PhD Primary cancer of left upper lobe of lung (HCC) (Primary Dx) 03/18/2025 9:00 AM CDT - 03/18/2025 11:59 PM CDT Hospital Encounter [facility] [address] [address] Primary cancer of left upper lobe of lung (HCC) Discharge Disposition: Discharge to home or self care from Last 3 Months Surgical History Surgery Date Site/Laterality Comments APPENDECTOMY 09/25/1975 - 09/24/1976 Appendectomy CORONARY ARTERY BYPASS GRAFT 08/25/2012 - 09/24/2012 double bypass NASAL SINUS SURGERY 09/25/2014 - 09/24/2015 CARDIAC STENT PLACEMENT 09/25/2018 - 09/24/2019 X2 PORT PLACEMENT CHEST >5 YEARS 10/27/2022 N/A CARDIAC SURGERY PORT REMOVAL 01/14/2025 N/A Medical History Medical History Date Comments Hypertension Hypertension GERD (gastroesophageal reflux disease) 08/1999 Chronic bronchitis (HCC) 07/2021 Sleep apnea 08/2010 Hypercholesteremia COPD (chronic obstructive pulmonary disease) Coronary artery disease Cancer (HCC) Family History Medical History Relation Name Comments Coronary artery disease Brother 1 1 Eugenia nary Artery Disease; Coronary artery disease Brother 2 2 Eugenia nary Artery Disease; Heart attack Father Fritz Deal Sr. Myocardial Inf arction; Valvular heart disease Father Fritz Deal Sr. Valv ular Heart Disease; Brain cancer Maternal Grandfather Colon cancer Mother Relation Name Status Comments Brother 1 1 Alive Brother 2 2 Alive Father Fritz Deal Sr. Alive Maternal Grandfather Mother Social History Tobacco Use Types Packs/Day Years Used Date Smoking Tobacco: Former Cigarettes 1 30 1 976 - 09/25/2005 Smokeless Tobacco: Never Tobacco Cessation:Counseling Given: Not Answered Comments:1-2 weeks cigar Alcohol Use Standard Drinks/Week Comments Yes 0 (1 standard drink = 0.6 oz pur e alcohol) AUDIT-C Answer Date Recorded Frequency of Alcohol Consumption Not on file 12/24/2024 Q2: How many drinks containi ng alcohol do you have on a typical day when you are drinking? 1 or 2 12/24/2024 Q3: How often do you have si x or more drinks on one occasion? Weekly 12/24/2024 Personal Safety Answer Date Recorded Have you ever been in or are you currently in a harmful physical or emotional relationship or is someone making you feel afraid or unsafe? Denies 01/14/2025 Sex and Gender Information Value Date Recorded Sex Assigned at Not on file Legal Sex Male 11:00 AM GASFITTER Gender Identity Male 09/07/2019 11:14 AM GASFITTER Sexual Orientation Straight 09/07/2019 11 :14 AM GASFITTER Obstetrics History Last Filed Vital Signs Vital Sign Reading Time Taken Comments Blood Pressure 119/71 03/25/2025 9:17 AM CDT Pulse 55 03/25/2025 9:17 AM CDT Temperature 36.3 C (97.3 F) 03/25/2025 9:17 AM CDT Respiratory Rate 18 03/25/2025 9:17 AM CDT Oxygen Saturation 98% 03/25/2025 9:17 AM CDT Inhaled Oxygen Concentration - - Weight 104.1 kg (229 lb 8 oz) 03/25/2025 9:17 AM CDT no shoes Height 177.8 cm (5' 10) 12/24/2024 9:53 AM CDT Body Mass Index 32.93 12/24/2024 9:53 AM CDT Plan of Treatment Health Maintenance Due Date Last Done Comments Colon Cancer Screening-Colonoscopy 1955 Depression Screening 1955 Hepatitis C Screening 1955 Prostate Cancer Screening-PSA 1956 DTaP/Tdap/Td Vaccine (1 - Tdap) 1967 Hepatitis B Screening 1974 Zoster Vaccine (1 of 2) 1975 Well Visit 65+ 2021 Covid-19 Vaccine (5 - 2024-2 6 season) 2025 09/09/2022, 07/30/2021, 11/24/2020, Additional history exists Influenza Vaccine (#1) 2025 07/21/2024, 2022 Fall Risk Assessment 01/14/2026 01/14/2025 Pneumococcal vaccine 65+ Completed 01/03/2024 Abdominal Aortic Aneurysm (A AA) Screen Completed 03/18/2025, 12/20/2024, 09/27/2024, Additional history exists Medical Devices Implanted Type Area Generation Technician Device Identifier Shelf Expiration Date Model / Serial / Lot Cardiac Stent Coronary Artery Sternal Wires Sternum [employer] Power Port 8fr [id number] - [id number] Implanted:Qty: 1 on 10/27/2022 at [facility] [employer] 07/06/2027 [id number] / / [id number] Procedures Procedure Name Priority Date/Time Associated Diagnosis Comments CT CHEST ABDOMEN W CONTRAST Schedule Routine, Read Routine (OP Routine) 03/18/2025 9:24 AM CDT Primary cancer of left upper lobe of lung (HCC) POCT CREATININE FOR CONTRAST EVALUATION Routine 03/18/2025 9:19 AM CDT from Last 3 Months Results * CT Chest Abdomen W Contrast (03/18/2025 9:24 AM CDT) Anatomical Region Laterality Modality Body N/A Computed Tomogra phy 03/21/2025 11:3 9 PM CDT Narrative 03/21/2025 11:49 PM CDT EXAM DESCRIPTION: CT CHEST ABDOMEN W CONTRAST REASON FOR STUDY: Restaging of lung cancer 3 month lung cancer f/u. No complaints. Hx of appy, port recently removed. TECHNIQUE: CT scan of the chest and abdomen performed with intravenous and without oral contrast using helical scanning technique with dynamic intravenous contrast injection. Reconstructed coronal and sagittal MPR images reviewed. All images stored on PACS. Automated exposure control was used as a dose optimization technique for this examination. CONTRAST TYPE/DOSE: 100mL of IOVERSOL 350 MG IODINE/ML INTRAVENOUS SYRINGE was injected via the intravenous COMPARISON: Comparison is made to multiple previous studies, the most recent CT of the chest and abdomen dated December 20, 2024. REFERENCE: Per ACR white paper recommendations, unless otherwise specified no follow-up imaging is recommended for incidental renal and adrenal lesions per consensus recommendations based on imaging criteria. Further lab evaluation could be pursued based on clinical findings. FINDINGS: CHEST NECK BASE: Unremarkable. HARDWARE/LINES/TUBES: The right port seen on previous study has been removed. LYMPH NODES: No axillary, mediastinal or hilar lymphadenopathy is seen by CT size criteria. There is confluent soft tissue around the left hilum measuring approximately 2.8 x 2.5 cm, not significantly changed as compared to multiple previous studies, consistent with posttreatment change MEDIASTINUM/SAMANTHA: There are sequelae of CABG. There is mild atherosclerosis of the aorta. There is moderate coronary artery calcification. Heart size is normal. There is no significant pericardial effusion. PLEURA: No effusion. No pneumothorax. LUNGS: There is emphysema through out the lungs bilaterally. There is mild biapical pleural-parenchymal scarring, unchanged. There is stable scarring adjacent to the left hilum. There is minimal dependent atelectasis in the lung bases. The central airways are normal. CHEST WALL/BREAST: Unremarkable. MUSCULOSKELETAL: There is diffuse degenerative change of the thoracic spine. There is no acute abnormality. There are sequelae of sternotomy. OTHER: No other significant abnormality. ABDOMEN LIVER: The liver is normal in attenuation without focal lesion. GALLBLADDER: No stones identified. Normal wall. No evidence of pericholecystic fluid. BILE DUCTS: No intrahepatic or extrahepatic ductal dilatation. PANCREAS: Normal. SPLEEN: Normal size. No focal lesions. ADRENALS: Normal. KIDNEYS/URINARY TRACT: Is a large low-density cyst in the inferior pole of the left kidney. The renal parenchyma is otherwise unremarkable. There are no urinary tract stones. There is no hydronephrosis or hydroureter. VASCULATURE: There is moderate atherosclerosis of the aorta and its pelvic branches. GI: The stomach appears normal. There is no significant small bowel dilation or visible thickening. There is extensive diverticulosis of the descending and visualized portions of the sigmoid colon. PERITONEUM/MESENTERY: No ascites or free air. LYMPH NODES: There are no enlarged lymph nodes seen by CT size criteria. MUSCULOSKELETAL: No significant abnormality. OTHER: No other abnormality. IMPRESSION: 1. Stable posttreatment change in the left hilum. 2. No CT evidence of residual or recurrent malignancy. No CT evidence of regional or distant metastatic disease. 3. Emphysema. 4. Atherosclerosis. 5. Degenerative change of the spine. 6. Diverticulosis. THIS IS AN ELECTRONICALLY VERIFIED FINAL REPORT 03/21/2025 11:49 PM - Electronically signed by Maritza Moseley M.D. SN: Report ID: [id number] Reading Location: [id number] Procedure Note Maritza Moseley MD - 03/21/2025 EXAM DESCRIPTION: CT CHEST ABDOMEN W CONTRAST REASON FOR STUDY: Restaging of lung cancer 3 month lung cancer f/u. No complaints. Hx of appy, port recently removed. TECHNIQUE: CT scan of the chest and abdomen performed with intravenousand without oral contrast using helical scanning technique with dynamic intravenous contrast injection. Reconstructed coronal and sagittal MPRimages reviewed. All images stored on PACS. Automated exposure control was usedas a dose optimization technique for this examination. CONTRAST TYPE/DOSE: 100mL of IOVERSOL 350 MG IODINE/ML INTRAVENOUSSYRINGE was injected via the intravenous COMPARISON: Comparison is made to multiple previous studies, the mostrecent CT of the chest and abdomen dated December 20, 2024. REFERENCE: Per ACR white paper recommendations, unless otherwise specifiedno follow-up imaging is recommended for incidental renal and adrenal lesionsper consensus recommendations based on imaging criteria. Further labevaluation could be pursued based on clinical findings. FINDINGS: CHEST NECK BASE: Unremarkable. HARDWARE/LINES/TUBES: The right port seen on previous study has been removed. LYMPH NODES: No axillary, mediastinal or hilar lymphadenopathy is seen byCT size criteria. There is confluent soft tissue around the left hilum measuring approximately 2.8 x 2.5 cm, not significantly changed ascompared to multiple previous studies, consistent with posttreatment change MEDIASTINUM/SAMANTHA: There are sequelae of CABG. There is mild atherosclerosis of the aorta. There is moderate coronary artery calcification. Heart size is normal. There is no significantpericardial effusion. PLEURA: No effusion. No pneumothorax. LUNGS: There is emphysema through out the lungs bilaterally. There ismild biapical pleural-parenchymal scarring, unchanged. There is stablescarring adjacent to the left hilum. There is minimal dependent atelectasis in the lung bases. The central airways are normal. CHEST WALL/BREAST: Unremarkable. MUSCULOSKELETAL: There is diffuse degenerative change of the thoracicspine. There is no acute abnormality. There are sequelae of sternotomy. OTHER: No other significant abnormality. ABDOMEN LIVER: The liver is normal in attenuation without focal lesion. GALLBLADDER: No stones identified. Normal wall. No evidence of pericholecystic fluid. BILE DUCTS: No intrahepatic or extrahepatic ductal dilatation. PANCREAS: Normal. SPLEEN: Normal size. No focal lesions. ADRENALS: Normal. KIDNEYS/URINARY TRACT: Is a large low-density cyst in the inferior poleof the left kidney. The renal parenchyma is otherwise unremarkable. Thereare no urinary tract stones. There is no hydronephrosis or hydroureter. VASCULATURE: There is moderate atherosclerosis of the aorta and itspelvic branches. GI: The stomach appears normal. There is no significant small bowel dilation or visible thickening. There is extensive diverticulosis of the descending and visualized portions of the sigmoid colon. PERITONEUM/MESENTERY: No ascites or free air. LYMPH NODES: There are no enlarged lymph nodes seen by CT size criteria. MUSCULOSKELETAL: No significant abnormality. OTHER: No other abnormality. IMPRESSION: 1. Stable posttreatment change in the left hilum. 2. No CT evidence of residual or recurrent malignancy. No CT evidenceof regional or distant metastatic disease. 3. Emphysema. 4. Atherosclerosis. 5. Degenerative change of the spine. 6. Diverticulosis. THIS IS AN ELECTRONICALLY VERIFIED FINAL REPORT 03/21/2025 11:49 PM - Electronically signed by Maritza Moseley M.D. SN: Report ID: [id number] Reading Location: [place] [address] [address] PROCEDURES Final R esult * POCT creatinine for contrast evaluation (03/18/2025 9:19 AM CDT) Creatinine POC 1.10 0.80 - 1.30 mg/dL Comment:Testing performed by : [facility], [address] [place] [address]., [id number] Blood 03/18/2025 9:19 AM CDT 03/18/2025 9:19 AM CDT us Theron Myers MD PhD POINT OF CARE TEST OR DERABLES Final Result [facility] [address] [facility] [place] [address] from Last 3 Months Insurance [facility] Member Subscriber Plan / Payer (Ef fective 2012-Present) Name:SAJAN DEAL Relation to Subscriber:Self Name:Sajan Deal Payer ID:[id number] (NAIC) Type:[facility] HMO/PPO Address: [place] [phone] [facility] GENERIC COPAY ASSIST [facility] Advance Directives For more information, please contact: [phone] * Full Code (Latest Code Status on File) Date Activated Date Inactivated Comments 01/14/2025 8:26 AM 01/15/2025 4:34 AM * Full Code Date Activated Date Inactivated Comments 10/27/2022 12:03 PM 10/28/2022 4:40 AM Care Teams Voice Network Administrator Relationship Specialty Start Date End Date Shirley Tucker [employer]LINDER [employer]ESS OPERATOR HELPER [facility] [place] [address] PCP - General Nurse Practitioner 06/17/24 Sierra Mercado MD [address] [facility] [address] [place], [place] [id number] Referring Physician Critical Care Med 10/14/22 Marquise Rene MD [address] [facility] [address] [place] [address] Consulting Physician Critical Care Med 10/14/22 Theron Myers MD PhD [address] [place] [address] [address] [place], [place] [address] Medical Oncologist Medical Oncology 10/26/22 Nael Ricardo MD [facility] [facility] [address] [place] [address] Radiation Oncologist Radiation Oncology 06/18/24
--- OUTSIDE RECORDS SUMMARY | 2025-06-11 02:32 | XMS_ITS ---
Author Organization [facility] [place] [address] Address [address] [place] [address] Care Team Providers Care Principal Architectural Firm Name Role Phone Sierra Mercado MD Unavailable [phone] Marquise Rene MD Unavailable [phone] Theron Myers MD PhD Unavailable [phone] Shirley Tucker NP Primary Care Provider Nael Ricardo MD Unavailable [phone] Active Problems Problem Noted Date Diagnosed Date Personal history of radiation therapy 01/26/2023 Encounter for management of implanted device 03/2023 Primary cancer of left upper lobe of lung 2022 Cancer Staging:Clinical stage from 10/26/2022:Stage IIIC(cT4, cN3, cM0) - Signed by Nael Ricardo MD on 10/26/2022 History of coronary artery stent placement 03/07 Paroxysmal atrial fibrillation 10/04/2017 Coronary artery disease invo [place]ving [place] coronary artery of [place] heart without angina pectoris 09/05/2017 Hx of CABG 09/05/2017 Atherosclerosis of coronary artery 10/31/2012 Current Treatment and Therapy Plans IV MAINTENANCE THERAPY PLAN* Plan Start Date:11/29/2022 Plan Provider:Theron Myers MD PhD Linked Problems Primary cancer of left upper lobe of lung (HCC)Encounter for management of implanted device Treatment Medications No medications scheduled. Past Treatment and Therapy Plans Oncology Chemotherapy Treatment Plan Name Start Date Discontinue Date Treatment Medications Discontinue Reason Plan Provider Cycles PACLItaxel / CARBOplatin with Concurrent Radiation: Induction / Weekly - Non-Small Cell Lung 3 01/10/2023 CARBOplatin (PARAPLATIN)CAR BOplatin (PARAPLATIN) IVPB in 250 mLPACLitaxel (TAXOL)PACLItax el (TAXOL) 100 ml Therapy Complete Theron Myers MD PhD 1 of 1 cycle started Oncology Treatment (2) Plan Name Start Date Discontinue Date Treatment Medications Discontinue Reason Plan Provider Cycles durvalumab consolidation 14 Day Cycles - Lung (Changed to 28 day cycles starting Cycle 16+) 3 10/01/2024 durvalumab (IMFINZI)durva lumab (IMFINZI) IVPB in 100 mL solution Therapy Complete Theron Myers MD PhD 20 of 21 cycles started Specialty Infusion Treatment Plan Name Start Date Discontinue Date Treatment Medications Discontinue Reason Plan Provider Hydration Therapy Plan 12/19/2022 06/21/2023 No medications scheduled. Therapy Complete Nael Ricadro MD Radiation Treatments * Course C1_LT_LUNG_202211/15/2022 - 12/29/2022 Treatment Period Energy Fraction Dose Fractions Total Dose Plans Planned LT LUNG 11/15/2022 - 12/29/2022 200 30 / 6,000 Reference Points Delivered LT LUNG_6000 11/15/2022 - 12/29/2022 6,000 Lifetime Dose Tracking * Chemical Lifetime Dose Automatic Entry Manual Entr y Fluoro Time 1.1 minutes 1.1 minutes 0 minutes Air kerma at the reference point (Ka,r) 1 mGy 1 mGy 0 mGy DLP 518 mGycm 518 mGycm 0 mGycm Treatment Summaries Primary cancer of left upper lobe of lung (HCC)* Images from the original note were not included. [place] [id number] This Survivorship Care Plan is a cancer treatment summary and follow-up plan and is provided to youto keep with your health care records and to share with your primary care provider or any of your doctors and nurses. This summary is a brief record of major aspects of your cancer treatment not a detailed or comprehensive record of your care. You should review this with your cancer provider. Treatment Summary and Survivorship Care Plan for Non-Small Cell Lung Cancer General Information Patient name Sajan Ca (home) Date of 1955 Health Care Providers (Including Names, Institutions) Provider Name: Contact Information: Primary Care Physician Sonny Guadalupe MD [phone] Surgeon No care cleaning team member to display Radiation Oncologist Nael Ricardo MD [phone] Medical Oncologist Theron Myers MD PhD Other Providers Treatment Summary Cancer Diagnosis Information Diagnosis Primary cancer of left upper lobe of lung (HCC) Diagnosis date 10/17/2022 Staging information Cancer Staging Primary cancer of left upper lobe of lung (HCC) Staging form: Lung, AJCC 8th Edition - Clinical stage from 10/26/2022: Stage IIIC (cT4, cN3, cM0) - Signed by Nael Ricardo MD on 10/26/2022 Treatment Completed Surgery No Radiation Radiation Treatments Active Plans LT LUNG Most recent treatment: Dose planned: 200 cGy (fraction 30 on 12/29/2022) Total: Dose planned: 6,000 cGy Elapsed Days: 44 Reference Points LT LUNG_6000 Most recent treatment: Dose given: 200 cGy (on 12/29/2022) Total: Dose given: 6,000 cGy Elapsed Days: 44 Historical No historical radiation treatments to show. Systemic Therapy (chemotherapy, hormonal therapy, other) PACLItaxel / CARBOplatin with Concurrent Radiation: Induction / Weekly - Non- Small Cell Lung Treatment goal [No plan goal] Status Active Start Date 11/15/2022 End Date 12/20/2022 Provider Theron Myers MD PhD Chemotherapy CARBOplatin (PARAPLATIN) 273 mg in sodium chloride 0.9% 250 mL IVPB (By AUC), 273 mg, intravenous, Once, 1 of 1 cycle Administration: 273 mg (11/15/2022), 232 mg (12/20/2022), 300 mg (11/22/2022), 250 mg (11/29/2022), 300 mg (12/06/2022), 300 mg (12/13/2022) PACLitaxeL (TAXOL) 111 mg in sodium chloride 0.9% (PVC-FREE) 100 mL IVPB, 50 mg/m2 = 111 mg, intravenous, Once, 1 of 1 cycle Administration: 111 mg (11/15/2022), 111 mg (12/20/2022), 111 mg (11/22/2022), 111 mg (11/29/2022), 111 mg (12/06/2022), 111 mg (12/13/2022) Hydration Therapy Plan Treatment goal [No plan goal] Status Active Start Date 12/19/2022 End Date Until discontinued Provider Nael Ricardo MD Chemotherapy [No matching medication found in this treatment plan] durvalumab consolidation 14 Day Cycles - Lung Treatment goal [No plan goal] Status Active Start Date 01/10/2023 (Planned) End Date 12/26/2023 (Planned) Provider Theron Myers MD PhD Chemotherapy [No matching medication found in this treatment plan] Lifetime Dose Tracking Lifetime Dose Tracking No doses have been documented on this patient for the following tracked chemicals: doxorubicin, epirubicin, idarubicin, daunorubicin, mitoxantrone, bleomycin, mitomycin, cyclophosphamide, carmustine,cisplatin, ifosfamide, carboplatin, fluorouracil, etoposide, doxorubicin HCl pegylated liposomal, et oposide phosphate, valrubicin, doxorubicin isotoxic equivalent Research Studies Persistent symptoms or side effects that have continued after finishing treatment: Shortness of breath with activity, Fatigue, Difficulty completing daily activities Treatment Ongoing: Additional Treatment Start Date Planned Duration Possible Side Effects IMMUNOTHERAPY 01/10/23 1 YEAR NAUSEA, FATIGUE, RASH, IMMUNE RESPONSES SUCH PNEUMONITIS Follow-up Care Plan Your follow-up care plan is design to inform you and primary care providers regarding the recommended and required follow-up, cancer screening and routine health maintenance that is needed to maintain optimal health. Schedule of Clinical Visits Coordinating Provider When/How often Theron Myers MD PhD Every 3 months for first 2 years, then every 6 months for 3-5 years then yearly. Cancer Surveillance or other Recommended Tests Coordinating Provider Test How Often Theron Myers MD PhD Chest Imaging Every 3 months for 2 years then every 6 months years 3-5, then yearly. All providers Monitor for jail cardiac toxicity. Sonny Guadalupe Monitor for bass viol repairer toxicity Cardiac - congestive heart failure (CHF), coronary artery disease (CAD) Renal insufficiency- Creatinine Musculoskeletal - Chest wall pain Neurologic - neuropathy Hematologic - CBC Yearly Possible late- and long-term effects that someone with this type of cancer and treatment may experience: Constipation Hearing loss Kidney problems Peripheral neuropathy or numbness and tingling Pneumonitis or inflammation of the lung (6 weeks-6 months after treatment) * Pulmonary fibrosis or scarring (6 weeks-6 months after treatment) * Trouble with or painful swallowing * Chest wall toxicity between 9-12 months after radiation therapy * Please call your radiation oncologist if experiencing these late effects * Peripheral Neuropathy This may feel like numbness, tingling or painful sensations that develop in your hands and feet. Neuropathy can occur during or shortly after treatment. Sometimes it goes away. For some patients the symptoms can be chronic. Talk to your provider about your symptoms. Some medications may lessen the symptoms. Other approaches include acupuncture, physical therapy and exercise. Fatigue Many patients experience some level of fatigue. Some patients experience severe and ongoing fatigue. An active lifestyle with healthy sleep patterns can improve your energy levels. Talk to your provider about ongoing (more than 3 months) fatigue. Weight management and Nutrition Some patients find it difficult to maintain good nutrition during or after treatment. This can leadto weight loss or weight gain. Aim for a normal body mass index (BMI) of 18.5-24.9, talk to your provider about your BMI. Being overweight may increase your risk of cancer recurrence and other diseases. Eat a healthy diet, focus on lean meats and proteins, more fruits, vegetables and whole grains and low in sugars and fats. Limit red meat and avoid processed meat. Work to maintain healthy weight behaviors that include diet and physical activity. Please continue to see your primary care provider for all general health care recommended for a person your age, including cancer screening tests. Any symptoms should be brought to the attention of your provider: Anything that represents a brand new symptom; Anything that represents a persistent symptom; Anything you are worried about that might be related to the cancer coming back. Cancer survivors may experience issues with the areas listed below. If you have any concerns in these or other areas, please speak with your doctors or nurses to find out how you can get help with them. Anxiety and depression Emotional and mental health Fatigue Fertility Financial advice or assistance Insurance Memory or concentration loss Parenting Physical functioning School/work Sexual functioning Stopping smoking Weight changes Other A number of lifestyle/behaviors can affect your ongoing health, including the risk for the cancer coming back or developing another cancer. Discuss these recommendations with your doctor or nurse: Eat a healthy diet: focus on more fruits, vegetables and whole grains. Maintain a healthy weight; avoid being overweight. Aim for a normal body mass index (BMI) of 18.5-24.9. Help learning to eat healthier, call the legal aide at: [facility] Have an active lifestyle, strive for 30 minutes of moderate exercise 5 times a week and strength orresistance training at least twice a week. Use broad-spectrum (UVA+UVB) sunscreen with SPF 30 or greater, is water resistant, limit time spentin the sun (10 am-4pm), wear hat, wear UV protective clothing, wear sunglasses. Never use a tanningbed. Skin that was irradiated may be more sensitive over your lifetime. Do not smoke or chew tobacco; participate in a smoking cessation program. Limit alcohol intake, 1 drink per day for a woman and 2 drinks per day for a man. Resources you may be interested in: [facility] http://www.[facility]/ [facility] Information Center 1st floor of [facility] [phone]. Computer access, educational material, counseling services (FREE) Cancer Resources: www.cancer.net [place] Disabilities Act: The U.S. Department of Justice provides information about the Americans with Disabilities Act (ADA). Toll free number http://www.ada.gov/ Occupational Therapy at [facility]. Improve memory and thinking following chemotherapy. Improve your performance at home, work and in the community. or Toll free www.ot.[facility]/patients A service of CancerCare, a non-profit organization providing free, professional support - includingcounseling, support group, financial assistance, educational workshops and publications -to anyone coping with lung cancer. http://www.lungcancer.org/ We are a partnership of lung cancer survivors, advocates, researchers, healthcare professionals andindrusty leaders. And we are united in the belief that every person with lung cancer deserves a cure. http://www.freetobreathe.org/ [facility] Cancer Connection is committed to organizing and funding community outreach programs aimed at those affected by lung cancer in the [place] area. http://www.lungcancerconnectioninc.org Cancer and Careers empowers and educates people with cancer to thrive in their workplace by providing expert advice, interactive tools and educational events. http://www.cancerandcareers.org/en/vtmqvzk-jna-sefk Spring[employer] Beyond Cancer: https://survivorship.cancer.gov/ an online tool for cancer survivors andcaregivers created by the [place] Cancer Society and the National Cancer [place]. It provides: Information on dealing with side effects from cancer and treatment Caregivers with support and resources Practical advice about talking to friends and family about cancer Questions to ask their health care team
--- OUTSIDE RECORDS SUMMARY | 2025-06-11 02:32 | XMS_ITS | Clinical Summary ---
Author Organization [facility] Address [address] [place] [address] Phone Care Team Providers Care Upset Operator Name Role Phone Unavailable Primary Care Provider Unavailabl e Medications aspirin (ECOTRIN EC) 81 mg Tablet, Delayed Release (E.C.) Take 81 mg by mouth daily. Active Active Problems Problem Noted Date Diagnosed Date Lung mass 09/22/2022 Mediastinal lymphadenopathy 09/22/2022 Family History Medical History Relation Name Comments Coronary Artery Disease Brother 1 Coronary Artery Disease Brother 2 Colon Cancer Mother Diabetes Sister 1 COPD Sister 2 Relation Name Status Comments Brother 1 Alive Brother 2 Alive Father Mother Sister 1 Alive Sister 2 Alive Social History Tobacco Use Types Packs/Day Years Used Date Smoking Tobacco: Former Cigarettes Q uit: 2004 Tobacco Cessation:Counseling Given: Not Answered Alcohol Use Standard Drinks/Week Comments Yes 6 (1 standard drink = 0.6 oz pur e alcohol) Sex and Gender Information Value Date Recorded Sex Assigned at Not on file Legal Sex Male 2:00 PM SOLID WASTE MANAGEMENT ENGINEER Gender Identity Not on file Sexual Orientation Not on file Last Filed Vital Signs Vital Sign Reading Time Taken Comments Blood Pressure 122/68 09/21/2022 3:00 PM SOLID WASTE MANAGEMENT ENGINEER Pulse 79 09/21/2022 4:00 PM SOLID WASTE MANAGEMENT ENGINEER Temperature 36.9 C (98.4 F) 09/21/2022 9:31 AM SOLID WASTE MANAGEMENT ENGINEER Respiratory Rate 23 09/21/2022 4:00 PM SOLID WASTE MANAGEMENT ENGINEER Oxygen Saturation 93% 09/21/2022 4:00 PM SOLID WASTE MANAGEMENT ENGINEER Inhaled Oxygen Concentration - - Weight 100.7 kg (222 lb) 09/21/2022 9:31 AM SOLID WASTE MANAGEMENT ENGINEER Height 177.8 cm (5' 10) 09/21/2022 9:31 AM SOLID WASTE MANAGEMENT ENGINEER Body Mass Index 31.85 09/21/2022 9:31 AM SOLID WASTE MANAGEMENT ENGINEER Plan of Treatment Health Maintenance Due Date Last Done Comments Pre-Diabetes and Diabetes Screening 1955 DTAP/TDAP/TD VACCINES (1 - Tdap) 1975 COLORECTAL SCREENING 2001 Colorectal Cancer Screening 2001 FIT-DNA Q 3 years 2001 FIT/FOBT Q 1 year 2001 Flex Sig/CT Colonography Q 5 years 2001 PNEUMOCOCCAL VACCINE 50+ YEARS (1 of 1 - PCV) 09/10/20 ZOSTER VACCINE (1 of 2) 2006 INFLUENZA VACCINE (#1) 2025 RSV VACCINE (60+ or ) (1 - 1-dose 75+ series) 2031 Insurance MEDICARE PART A HOSPITAL ONLY [facility] [id number] MEDICARE PART A HOSPITAL ONLY [facility] CHO[facility] [id number] [place] [id number]
--- OUTSIDE RECORDS SUMMARY | 2025-06-11 02:32 | XMS_ITS | Encounter Summary ---
Author Organization [facility] Healthcare Address [address] [place] [address] Care Team Providers Care Supply Requirements Officer Name Role Phone Gurinder Greenfield MD Primary Care Provider Sharon Urrutia MD, Demario Pope Primary Care Provider Marielos Dallas DO Primary Care Provider + No, Physician Primary Care Provider [phone] Sierra Mercado MD Unavailable [phone] Marquise Rene MD Unavailable [phone] Dorothy Valderrama MD Unavailable [phone] Theron Myers MD PhD Unavailable [phone] Nael Ricardo MD Unavailable [phone] Sonny Guadalupe MD Primary Care Provider [phone] Shirley Tucker NP Primary Care Provider [phone] Nael Ricardo MD Unavailable [phone] Encounter Details Date Type Department Care Team (Late st Contact Info) Description 06/04/2018 Orders Only [facility] Health Information Management [address] [place] [id number] Scanning, Provider Social History Tobacco Use Types Packs/Day Years Used Date Smoking Tobacco: Former Cigarettes Q uit: 2006 Smokeless Tobacco: Never Comments:1-2 weeks cigar Alcohol Use Standard Drinks/Week Comments Yes 0 (1 standard drink = 0.6 oz pur e alcohol) Sex and Gender Information Value Date Recorded Sex Assigned at Not on file Legal Sex Male 11:00 AM BRANCH LIBRARY CLERK Gender Identity Male 09/07/2019 11:14 AM BRANCH LIBRARY CLERK Sexual Orientation Straight 09/07/2019 11 :14 AM BRANCH LIBRARY CLERK documented as of this encounter Plan of Treatment Not on file documented as of this encounter Procedures Procedure Name Priority Date/Time Associated Diagnosis Comments CARDIOLOGY DOCUMENT SCAN 06/04/2018 documented in this encounter Results * Cardiology Document Scan (06/04/2018) Anatomical Region Laterality Modality Other us Provider Scanning CV CARDIAC SERVICES PROCEDURES Final Result documented in this encounter Visit Diagnoses Not on filedocumented in this encounter Care Teams Supply Requirements Officer Relationship Specialty Start Date End Date Gurinder Greenfield MD PCP - General Family Practice 09/05/17 05/27/20 Demario Herrera Jr., MD [address] [place] [id number] PCP - General Geriatric Medicine 05/28/20 07/05/21 Marielos Dallas DO [address] [place] [address] PCP - General Family Medicine 07/06/21 08/31/22 No, Physician PCP - General 09/01/22 11/14/22 Sonny Guadalupe MD [address] [place] [address] PCP - General Family Medicine 11/15/22 06/16/24 Shirley Tucker NP [address] [place] [address] PCP - General Nurse Practitioner 06/17/24 Sierra Mercado MD [address] [place], [place] [id number] Referring Physician Critical Care Med 10/14/22 Marquise Rene MD [address] [facility] [address] [place] [address] Consulting Physician Critical Care Med 10/14/22 Dorothy Valderrama MD [address] [facility], [address] [place] [address] Medical Oncologist/Squaring Machine Operator Medical Oncology 10/14/22 10/25/22 Theron Myers MD PhD [address] [place] [address] Medical Oncologist Medical Oncology 10/26/22 Nael Ricardo MD [address] [place] [address] Radiation Oncologist Radiation Oncology 10/26/22 Nael Ricardo MD [address] [place] [address] Radiation Oncologist Radiation Oncology 06/18/24 documented as of this encounter
[2025-06-11 07:56] VITALS: BP 128/91; PULSE 65; RESP 18; TEMP 36.3; O2SAT 97; BMI 32.3
[2025-06-11] MEDS: LACTATED RINGERS 1,000 ML 150 ML IV CONT (08:14)
--- NOTE | 2025-06-11 08:46 | PM.IMHP ---
H&P: HPI History of Present Illness Date/Time: 06/11/25 08:46 Chief Complaint: History of colon polyps Narrative: The patient has a history of colonic polyps, the last colonoscopy was in 2020, finding 2 small tubular adenomas. Review of Systems Review of Systems: All systems reviewed & are unremarkable except as noted in HPI and below [facility] Past Medical History Medical History (Updated 06/11/25 @ 08:47 by Barrington Singh MD) History of colon polyps Squamous cell carcinoma of left lung Hyperlipidemia Obstructive sleep apnea on CPAP Chronic obstructive pulmonary disease Coronary artery disease Hypertension Family history of colon cancer History of tobacco abuse Situational mixed anxiety and depressive disorder Paroxysmal atrial fibrillation Previously on Xarelto which was stopped in August 2022 due to hemoptysis Surgical History Surgical History S/P bronchoscopy History of colonoscopy with polypectomy (07/2021) History of right coronary artery stent placement x2 in 2019 History of coronary artery bypass graft x 2 (2011) History of esophagogastroduodenoscopy (EGD) History of appendectomy Open appendectomy in the 1970's Family History Family History Father Heart disease Hypertension Cerebrovascular accident Mother Carcinoma of colon Sibling Family history of type 2 diabetes mellitus Hypertension Heart disease Pacemaker Social History Social History Social History: 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 He has 4 children. He lives with his . Surrogate medical decision maker: Brianna Lanny, spouse. Code status: Full code. 05/27/25 very confident with medical forms Smoking packs per day: 1 Smoking cigarettes per day: 20.0 Years smoked: 30 Smoking pack-years: 30.00 Smoking status: Former smoker Tobacco type: cigarettes Second hand tobacco smoke exposure: No Additional smoking assessment comments: quit smoking 16 years ago Alcohol intake: current Drinks per week: 1 Alcohol use details: Patient drinks one 6-pack of beer per week. Substance use: current Substance use type: painkillers Other substance usage details: 15 years ago Lack of Transportation: No Lack of Food: Never True Current Housing: Decline to Answer Concerned About Future Housing: No Difficulty Paying Gas/Electric Bills: No Difficulty Paying for Meds: No Currently Unemployed: No Education: Associate Degree Difficulty w/ Childcare or Family Care: No Living arrangements: with family Additional living arrangements comments: Lives with and son in [place], also daughter. 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 Spiritual care concerns: No Agree to blood products: Yes Meds Home Medications and Allergies Home Medications ?Medication ?Instructions ?Recorded ?Confirmed ?Type lisinopril 10 mg tablet 10 mg PO HS 11/19/19 06/11/25 History albuterol sulfate 2.5 mg/3 mL 2.5 mg (3 mL) inhalation Q4H PRN 09/07/21 06/11/25 Rx (0.083 %) solution for nebulization Shortness Of Breath Or Wheezing 1 month #180 mL diltiazem HCl 120 mg 120 mg PO DAILY 11/04/22 06/11/25 History capsule,extended release 24 hr, controlled atorvastatin 20 mg tablet 20 mg PO HS 12/26/22 06/11/25 History sotalol 120 mg tablet 80 mg PO Q12HR 12/26/22 06/11/25 History albuterol sulfate 90 mcg/actuation 1 inh inhalation QID PRN shortness 11/23/23 06/11/25 Rx aerosol inhaler of breath or wheezing #6.7 grams budesonide 160 mcg-glycopyr 9 See Rx Instructions .Route 05/14/25 06/11/25 Rx mcg-formot 4.8 mcg/actuation HFA .COMPLEX #10.7 grams inhaler (Breztri Aerosphere) ipratropium bromide 0.02 % 2.5 ml inhalation DAILY PRN 05/14/25 06/11/25 Rx solution for inhalation shortness of breath or wheezing #300 mL doxycycline hyclate 100 mg capsule 100 mg PO BID #20 caps 05/27/25 06/11/25 Rx prednisone 20 mg tablet 20 mg PO .COMPLEX #15 tabs 05/27/25 06/11/25 Rx Allergies Allergy/AdvReac Type Severity Reaction Status Date / Time poison mehdi extract Allergy Intermediate Rash Verified 06/11/25 08:02 pollen extracts Allergy Intermediate rash Verified 06/11/25 08:02 amoxicillin (From Augmentin) AdvReac Intermediate Nausea Verified 06/11/25 08:02 clavulanic acid (From AdvReac Intermediate Nausea Verified 06/11/25 08:02 Augmentin) Penicillins AdvReac Intermediate Diarrhea Verified 06/11/25 08:02 Vital Signs Vital Signs - 24 hr 06/11/25 07:56 Temperature 97.3 F L Pulse Rate 65 Respiratory Rate 18 Blood Pressure 128/91 H Pulse Oximetry 97 Oxygen Delivery Room Air Exam Const: General: cooperative and healthy appearing Resp: Effort & Inspection: normal respiratory effort and able to speak in complete sentences Auscultation: clear to auscultation bilaterally Cardio: Rate: regular rate Rhythm: regular rhythm GI: Inspection: normal to inspection GI Palp: No No hepatosplenomegaly present Auscultation: normal bowel sounds Rectal Exam: deferred Skin: General skin exam: normal color Psych: Appearance: grossly normal Mental Status: mental status grossly normal Assessment and Plan Assessment and plan (1) History of colon polyps: Code(s): Z86.010 - Personal history of colon polyps Status: Acute Assessment and Plan: The patient is deemed a good candidate for the procedure. Consent signed. Will proceed.
--- NOTE | 2025-06-11 08:53 | WPDANESEPPF ---
Anes - Initial Pre Proc Eval Procedure: Operation Date: 06/11/25 09:30 Proposed Procedures p Screening Colonoscopy - Barrington Singh MD Date/Time: 06/11/25 08:53 Surgeon: Barrington Singh MD Pre Op Diagnosis: Personal history of colon polyps, unspecified Patient Data Age: 69 Gender: M Height: 1.78 m Weight: 102.4 kg Last Vital Signs Temp 97.3 F L 06/11/25 07:56 Pulse 65 06/11/25 07:56 Resp 18 06/11/25 07:56 BP 128/91 H 06/11/25 07:56 Pulse Ox 97 06/11/25 07:56 O2 Del Method Room Air 06/11/25 07:56 Allergies Allergy/AdvReac Type Severity Reaction Status Date / Time poison mehdi extract Allergy Intermediate Rash Verified 06/11/25 08:02 pollen extracts Allergy Intermediate rash Verified 06/11/25 08:02 amoxicillin (From Augmentin) AdvReac Intermediate Nausea Verified 06/11/25 08:02 clavulanic acid (From AdvReac Intermediate Nausea Verified 06/11/25 08:02 Augmentin) Penicillins AdvReac Intermediate Diarrhea Verified 06/11/25 08:02 Home Medications ?Medication ?Instructions ?Recorded ?Confirmed ?Type lisinopril 10 mg tablet 10 mg PO HS 11/19/19 06/11/25 History albuterol sulfate 2.5 mg/3 mL 2.5 mg (3 mL) inhalation Q4H PRN 09/07/21 06/11/25 Rx (0.083 %) solution for nebulization Shortness Of Breath Or Wheezing 1 month #180 mL diltiazem HCl 120 mg 120 mg PO DAILY 11/04/22 06/11/25 History capsule,extended release 24 hr, controlled atorvastatin 20 mg tablet 20 mg PO HS 12/26/22 06/11/25 History sotalol 120 mg tablet 80 mg PO Q12HR 12/26/22 06/11/25 History albuterol sulfate 90 mcg/actuation 1 inh inhalation QID PRN shortness 11/23/23 06/11/25 Rx aerosol inhaler of breath or wheezing #6.7 grams budesonide 160 mcg-glycopyr 9 See Rx Instructions .Route 05/14/25 06/11/25 Rx mcg-formot 4.8 mcg/actuation HFA .COMPLEX #10.7 grams inhaler (Breztri Aerosphere) ipratropium bromide 0.02 % 2.5 ml inhalation DAILY PRN 05/14/25 06/11/25 Rx solution for inhalation shortness of breath or wheezing #300 mL doxycycline hyclate 100 mg capsule 100 mg PO BID #20 caps 05/27/25 06/11/25 Rx prednisone 20 mg tablet 20 mg PO .COMPLEX #15 tabs 05/27/25 06/11/25 Rx Patient hx anesthesia problems: none Family hx anesthesia problems: none Results Review: All pre-operative results and documents have been reviewed as part of the pre-operative evaluation. [facility] Past Medical History Medical History History of colon polyps Squamous cell carcinoma of left lung Hyperlipidemia Obstructive sleep apnea on CPAP Chronic obstructive pulmonary disease Coronary artery disease Hypertension Family history of colon cancer History of tobacco abuse Situational mixed anxiety and depressive disorder Paroxysmal atrial fibrillation Previously on Xarelto which was stopped in August 2022 due to hemoptysis Surgical History Surgical History S/P bronchoscopy History of colonoscopy with polypectomy (07/2021) History of right coronary artery stent placement x2 in 2019 History of coronary artery bypass graft x 2 (2011) History of esophagogastroduodenoscopy (EGD) History of appendectomy Open appendectomy in the 1970's Family History Family History Father Heart disease Hypertension Cerebrovascular accident Mother Carcinoma of colon Sibling Family history of type 2 diabetes mellitus Hypertension Heart disease Pacemaker Social History Social History Social History: 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 He has 4 children. He lives with his . Surrogate medical decision maker: Briannachrista Ca, spouse. Code status: Full code. 05/27/25 very confident with medical forms Smoking packs per day: 1 Smoking cigarettes per day: 20.0 Years smoked: 30 Smoking pack-years: 30.00 Smoking status: Former smoker Tobacco type: cigarettes Second hand tobacco smoke exposure: No Additional smoking assessment comments: quit smoking 16 years ago Alcohol intake: current Drinks per week: 1 Alcohol use details: Patient drinks one 6-pack of beer per week. Substance use: current Substance use type: painkillers Other substance usage details: 15 years ago Lack of Transportation: No Lack of Food: Never True Current Housing: Decline to Answer Concerned About Future Housing: No Difficulty Paying Gas/Electric Bills: No Difficulty Paying for Meds: No Currently Unemployed: No Education: Associate Degree Difficulty w/ Childcare or Family Care: No Living arrangements: with family Additional living arrangements comments: Lives with and son in [place], also daughter. 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 Spiritual care concerns: No Agree to blood products: Yes Anes - Eval Final PreProcedure Day of Procedure 06/11/25 08:53 Patient weight: obese Lungs: normal air movement Airway: Mallampati scale class II Neurological: alert and oriented Last oral intake: >/= 8 hours ASA classification: IV Emergent: no Anesthetic plan: proceed Anesthesia type and monitoring: general GIVS and standard monitoring Results Review: All pre-operative results and documents have been reviewed as part of the pre-operative evaluation. Hx of CABG 2011/PTCA 2018, ALONSO on CPAP, COPD/emphysema w hx of lung ca and chemo/radiation. Pt w poor exercise tolerance, gets SOB w min exertion, no CP. Pt saw Dr Huddleston last week and doing well from cardiac standpoint. Informed Consent: The patient's anesthetic plan and its attendant risks and benefits were discussed with the patient/family/POA. Questions were solicited and answers provided to the satisfaction of the patient/family/POA.
[2025-06-11 09:17] VITALS: BP 112/73; PULSE 60; RESP 13; O2SAT 100
[2025-06-11 09:27] VITALS: BP 131/82; PULSE 62; RESP 21; O2SAT 99
[2025-06-11 09:37] VITALS: BP 124/76; PULSE 57; RESP 14; O2SAT 100
== END 2025-06-11 09:43 | disposition home or self-care (01) ==
PROVIDERS: PCP Nurse Practitioner Family; Referring Provider Nurse Practitioner Family; Visit Provider Internal Medicine Gastroenterology
PROC: 0DJD8ZZ Inspection of Lower Intestinal Tract, Via Natural or Artificial Opening Endoscopic (ICD-10-PCS; CPT 45378; principal; 2025-06-11 09:30)
DX: Z12.11 Encounter for screening for malignant neoplasm of colon (principal); K57.30 Diverticulosis of large intestine without perforation or abscess without bleeding; E78.5 Hyperlipidemia, unspecified; I10 Essential (primary) hypertension; I48.0 Paroxysmal atrial fibrillation; J44.9 Chronic obstructive pulmonary disease, unspecified; I25.10 Atherosclerotic heart disease of native coronary artery without angina pectoris; F41.8 Other specified anxiety disorders; G47.33 Obstructive sleep apnea (adult) (pediatric); E66.9 Obesity, unspecified; Z68.32 Body mass index [BMI] 32.0-32.9, adult; Z99.89 Dependence on other enabling machines and devices; Z79.51 Long term (current) use of inhaled steroids; Z79.52 Long term (current) use of systemic steroids; Z98.890 Other specified postprocedural states; Z95.5 Presence of coronary angioplasty implant and graft; Z95.1 Presence of aortocoronary bypass graft; Z86.0100 Personal history of colon polyps, unspecified; Z87.891 Personal history of nicotine dependence; Z92.3 Personal history of irradiation; Z92.21 Personal history of antineoplastic chemotherapy; Z85.118 Personal history of other malignant neoplasm of bronchus and lung; Z80.0 Family history of malignant neoplasm of digestive organs; Z82.49 Family history of ischemic heart disease and other diseases of the circulatory system
CPT/HCPCS: 45378; J2003; J2704; J7120